=== PATIENT | male | born 1945 | race Caucasian/White ===

== ENCOUNTER 2020-09-24 12:02 | Emergency (ER) | payer MEDICARE ==
[~2020-09-24] VITALS: Ht 182.9 cm; Wt 117.9 kg
[2020-09-24] MEDS ORDERED: SODIUM CHLORIDE 0.9% 1000ML 1,000 ML IV STA (12:27)
[2020-09-24] MEDS ORDERED: ONDANSETRON HCL INJ 2MG/ML 2ML 2 MG/ML VIAL IV ONE (12:27)
[2020-09-24] MEDS ORDERED: HYDROMORPHONE 1MG/1ML INJ IV ONE (12:27)
--- NOTE | 2020-09-24 14:11 | Emergency Department Note ---
History of Present Illnes History of Present Illness Chief Complaint: Extremity Trauma/Pain History of Present Illness This is a 75 year old male PT WAS TO GET A SPINAL CORD STIMULATOR AND THE DOCTOR DID HIS EPIDURAL, BUT COULDN'T IMPLANT THE STIMULATOR D/T C-ARM BREAKING AND PT THEN STATED LEFT LEG PAIN, SO MD SENT PT TO ER TO R/O DVT. PT ALSO WANTING PAIN MEDICATION. I SPOKE WITH PAIN MD - HE SAYS PT ONLY NEEDS DOPPPLER SINCE PT HAS BEEN OFF ASA/PLAVIX 6 DAYS FOR THIS PROCEDURE - IF NEGATIVE HE WILL F/U PT Historian: Patient Arrival Mode: [facility] KNIFE OPERATOR: See EMS Report Telecommunications Equipment Installer Required: No Onset (how long ago): minute(s) Location: LEFT LEG Quality: PAIN Radiation: Reports non-radiation Severity: severe Onset quality: sudden Timing of current episode: constant Progression: unchanged Chronicity: new Context: Denies recent illness Relieving factors: none Exacerbating factors: none Associated symptoms: Reports denies other symptoms Past Medical/Family History Physician Review I have reviewed the patient's past medical and family history. Any updates have been documented here. Past Medical History Recent Fever: No Clinical Suspicion of Infectio: No New/Unexplained Change in Ment: No Past Medical History: Chronic Back Pain Social History Smoking Cessation: Unknown if ever smoked Counseling Performed: No Alcohol Use: None Any Illegal Drug Use: No Physically hurt or threatened: No Family History Family history of heart diseas: No Other Any Pre-Existing Lines (PICC,: No Review of Systems Review of Systems Constitutional: Reports no symptoms EENTM: Reports no symptoms Cardiovascular: Reports no symptoms Respiratory: Reports no symptoms Gastrointestinal: Reports no symptoms Genitourinary: Reports no symptoms Musculoskeletal: Reports as per HPI, Reports back pain Integumentary: Reports no symptoms Neurological: Reports no symptoms Psychological: Reports no symptoms Endocrine: Reports no symptoms Hematological/Lymphatic: Reports no symptoms Physical Exam Related Data Allergies: Coded Allergies: promethazine (Verified Allergy, Unknown, 09/24/20) Triage Vital Signs Vital Signs Date Time Temp Pulse Resp B/P (MAP) Pulse Ox O2 Delivery O2 Flow Rate FiO2 09/24/20 12:04 96.9 94 22 114/78 96 Room Air Vital signs reviewed: Yes Physical Exam CONSTITUTIONAL Constitutional: Present well-developed, Present well-nourished HENT HENT: Present normocephalic, Present atraumatic, Present oropharynx clear/moist, Present nose normal HENT L/R: Present left ext ear normal, Present right ext ear normal EYES Eyes: Reports PERRL, Reports conjunctivae normal NECK Neck: Present ROM normal PULMONARY Pulmonary: Present effort normal, Present breath sounds normal CARDIOVASCULAR Cardiovascular: Present regular rhythm, Present heart sounds normal, Present capillary refill normal, Present normal rate GASTROINTESTINAL Abdominal: Present soft, Present nontender, Present bowel sounds normal GENITOURINARY Genitourinary: Present exam deferred SKIN Skin: Present warm, Present dry MUSCULOSKELETAL Musculoskeletal: Present ROM normal, Present other (NEG SLR) NEUROLOGICAL Neurological: Present alert, Present oriented x 3, Present DTRs normal, Present no gross motor or sensory deficits; Absent cranial nerve deficit, Absent sensory deficit, Absent weakness PSYCHOLOGICAL Psychological: Present mood/affect normal, Present judgement normal Results Imaging Imaging results reviewed: Yes Impressions NEG DOPPLER FOR DVT Assessment & Plan Medical Decision Making MDM DOPPLER R/O DVT Reassessment Reassessment DC HOME, PT HAS PAIN MEDS PER PAIN MANAGEMENT MD, DR PHAM Assessment & Plan Final Impression: (1) Leg pain Depart Disposition: HOME, SELF-CARE Last Vital Signs Date Time Temp Pulse Resp B/P (MAP) Pulse Ox O2 Delivery O2 Flow Rate FiO2 09/24/20 12:04 96.9 94 22 114/78 96 Room Air Medications in the ED Hydromorphone HCl 2 mg ONCE ONCE IV Last administered on 09/24/20at 13:04; Admin Dose 2 MG; Start 09/24/20 at 12:27; Stop 09/24/20 at 12:30; Status DC Ondansetron HCl 4 mg ONCE ONCE IV Last administered on 09/24/20at 13:04; Admin Dose 4 MG; Start 09/24/20 at 12:27; Stop 09/24/20 at 12:30; Status DC Sodium Chloride 1,000 ml @ 0 mls/hr Q0M STAT IV Last administered on 09/24/20at 13:04; Admin Dose 1,000 MLS/HR; Start 09/24/20 at 12:27; Stop 09/24/20 at 12:29; Status DC RAND PALMA MD Sep 24, 2020 14:11
--- OUTSIDE RECORDS SUMMARY | 2020-09-24 14:22 | XMS REPORT | Continuity of Care Document ---
Author Author Raffi Yogesh [employer] Organization [employer] Address Unknown Phone Unavailable Care Team Providers Care Employee Counselor Name Role Phone [employer] Unavailable Un available Problems Problem Status Onset Date Classification Date Reported Comments Source PROSTATE TRANSURETHRAL PROCEDURE Active 03/01/2020 [facility] UNK Active 0 02/17/2020 [facility] JEROME Active 0 04/17/2017 [facility] R26.0 - ATAXIC GAIT Active 07/08/2016 [place] Allergic rhinitis (disorder) R esolved Problem [facility] Chronic atrial fibrillation (disorder) Resolved Problem 08/10/2020 [facility] Chronic obstructive lung disease (disorder) Active Problem 08/10/2020 [facility] Diabetes mellitus (disorder) A ctive Problem [facility] Morbid obesity (disorder) Acti ve Problem Medical [facility] Benign prostatic hypertroph with outflow obstruction (disorder) Active Prob nelly 08/10/2020 [facility] Coronary arteriosclerosis (disorder) Active Problem Medical [facility] Device in situ (finding) Active Problem 08/10/2020 Medical [facility] History of - coronary artery bypass lisa ting (context-dependent category) Active Prob nelly 08/10/2020 [facility] Stented coronary artery (finding) Active Problem [facility] Urinary catheter in situ (finding) Active Problem [facility] Impotence (disorder) Active Problem 08/10/2020 [facility] Retention of urine (disorder) Active Problem Medical Group OBSTRUCTIVE SLEEP APNEA (ADULT) (PEDIATR Active [facility] Medications Medication Details Route Status Patient Instructions Ordering Provider Order Date Source QUADMIX QUADMIX, 1 injection, intraCAVERNOSAL, Daily, PRN intercourse, Ouvvgivpyt23pl/mL, Phentolamine 4mg/mL, PGE1 40mcg/mL,Xsnfppcr732kmw/mL start 6units, # 5 mL, Refill(s) 0, Pharmacy: [facility], 172.72, cm, 08/07/20 15:53:00 CDT, Height, 97.756, kg... Active 08/07/2020 [facility] QUADMIX QUADMIX, 1 injection, intraCAVERNOSAL, Daily, PRN intercourse, Xhqwtqfnwa65vu/mL, Wncqcavvxonp0ro/mL, PGE1 40mcg/mL, Yqulvwst698wpj/mL, # 5 mL, Refill(s) 0, Pharmacy: [facility], 172.72, cm, 04/23/20 9:54:00 CDT, Height, 101.818, kg, 04/23/20 9:... Active 07/16/2020 [facility] Trimix Trimix, 6 units, intraC AVERNOSAL, Q24H, PRN sexual intercourse, Papaverine 30mg/mL, Phentolamine 1mg/mL, Prostaglandin E1 10mcg/mL. 5 mL vial, # 5 mL, Refill(s) 0, Pharmacy: [facility] Active 03/07/2020 [facility] Calcium Chloride 0.0014 MEQ/ML / Potassi um Chloride 0.004 MEQ/ML / Sodium Chloride 0.103 MEQ/ML / Sodium Lactate 0.028 MEQ/ML Injectable Solution 1,000 mL, Infuse Over: 1 hr, Route: IV, PRE OP, Dosing Weight 101.591 kg, Start date: 03/02/20 13:00:00 CDT, Duration: 1 doses or times, Bolus Inactive 03/02/2020 [facility] Calcium Chloride 0.0014 MEQ/ML / Potassi um Chloride 0.004 MEQ/ML / Sodium Chloride 0.103 MEQ/ML / Sodium Lactate 0.028 MEQ/ML Injectable Solution 1,000 mL, Rate: 75 ml/hr, Infuse over: 1 3.3 hr, Route: IV, Dosing Weight 101.591 kg, Total Volume: 1,000, Start date: 03/02/20 12:21:00 CDT, Duration: 30 day, Stop date: 04/01/20 12:20:00 CDT, 2.22, m2 Inactive 03/02/2020 [facility] lidocaine (ANES) Route: IV, Dr ug form: INJ, ONCE, Stop date: 03/02/20 12:17:00 CDT Inactive 03/02/2020 [facility] phenylephrine (ANES) Route: IV , Drug form: INJ, ONCE, Stop date: 03/02/20 12:17:00 CDT Inactive 03/02/2020 [facility] ondansetron (ANES) Route: IV, Drug form: INJ, ONCE, Stop date: 03/02/20 12:17:00 CDT Inactive 03/02/2020 [facility] fentaNYL (ANES) Route: IV, Yasir g form: INJ, ONCE, Stop date: 03/02/20 12:11:00 CDT Inactive 03/02/2020 [facility] propofol (ANES) Route: IV, Yasir g form: INJ, ONCE, Stop date: 03/02/20 12:11:00 CDT Inactive 03/02/2020 [facility] 200 ML Ciprofloxacin 2 MG/ML Injection 400 mg, Route: IVPB, PRE OP, Dosing Weight 102.955, kg, Start date: 03/02/20 12:00:00 CDT, Duration: 1 day, Stop date: 03/03/20 11:59:00 CDT, ABX Indication: Surgical Prophylaxis Inactive 03/02/2020 [facility] midazolam (ANES) Route: IV, Dr ug form: SOLN, ONCE, Stop date: 03/02/20 11:56:00 CDT Inactive 03/02/2020 [facility] acetaminophen (ANES) 10 mg Rou te: IV, Drug form: INJ, Start date: 03/02/20 11:46:00 CDT, Stop date: 03/02/20 12:46:00 CDT Inactive 03/02/2020 [facility] Tamsulosin hydrochloride 0.4 MG Oral Capsule [Flomax] 0.4 mg = 1 cap, PO, Daily, # 30 cap, 1 Refill(s), Pharmacy: [place] [id number] Active 03/02/2020 [facility] oxybutynin 5 mg oral tablet 5 mg = 1 tab, PO, TID, PRN Other-See Comments, # 30 tab, 0 Refill(s), Pharmacy: [place] [id number] Active 03/02/2020 [facility] Lactated Ringers Injection IV (ANES) 1000 mL Route: IV, Total Volume: 1,000, Start date: 03/02/20 11:26:00 CDT, Stop date: 03/02/20 12:26:00 CDT Inactive 03/02/2020 [facility] Trerebecca Ellipta inhalation powder = 1 inhalation, PO, Daily, PRN COPD, # 1 ea, 0 Refill(s) Active 03/02/2020 [facility] isosorbide dinitrate 30 mg oral tablet 30 mg = 1 tab, PO, Daily, Daily, 0 Refill(s) Active 02/13/2020 [facility] Tamsulosin hydrochloride 0.4 MG Oral Capsule [Flomax] 0.4 mg = 1 cap, PO, Daily, # 30 cap, 1 Refill(s), Pharmacy: [place] [id number] Active 12/01/2019 [facility] Ciprofloxacin 500 MG Oral Tablet [Cipro] 500 mg = 1 tab, PO, Q12H, X 5 day, # 10 tab, 0 Refill(s), Pharmacy: [place] [id number] Active 12/01/2019 [facility] Fosfomycin 33.3 MG/ML Oral Suspension [Monurol] = 1 Pack, PO, Every Other Day, # 2 ea, 0 Refill(s), Pharmacy: [place] [id number] Active 11/29/2019 [facility] Amikacin 500 mg, Route: IM, ON CE, Dosing Weight 108.778, kg, Start date: 11/29/19 12:26:00 PROTECTIVE SERVICES OFFICER, Stop date: 11/29/19 12:26:00 PROTECTIVE SERVICES OFFICER Inactive 11/29/2019 [facility] Ciprofloxacin 500 MG Oral Tablet [Cipro] 500 mg = 1 tab, PO, Q12H, Start 3 days before surgery, X 10 day, # 20 tab, 0 Refill(s), Pharmacy: [facility] Active 11/16/2019 [facility] ferrous sulfate 325 mg oral enteric coated tablet 325 mg = 1 tab, PO, Daily, # 30 tab, 0 Refill(s) Active 11/16/2019 [facility] Vitamin D3 5000 intl units oral tablet 5,000 IntlUnit = 1 tab, PO, Daily, 0 Refill(s) Active 08/17/2019 [facility] Aspirin 81 MG Enteric Coated Tablet 81 mg = 1 tab, PO, Daily, # 90 tab, 3 Refill(s) Active 08/17/2019 [facility] Co-Q10 200 mg oral tablet 200 mg = 1 tab, PO, Daily, 0 Refill(s) Active 08/17/2019 [facility] gabapentin 600 MG Oral Tablet 600 mg = 1 tab, PO, Daily, 0 Refill(s) Active 08/17/2019 [facility] allopurinol 300 mg oral tablet 300 mg = 1 tab, PO, Daily, # 90 tab, 0 Refill(s) Active 08/17/2019 [facility] ranitidine 300 mg oral tablet 300 mg = 1 tab, PO, Daily, # 90 tab, 0 Refill(s) Active 08/17/2019 [facility] atorvastatin 40 MG Oral Tablet [Lipitor] 40 mg = 1 tab, PO, Bedtime, # 90 tab, 0 Refill(s) Active 08/17/2019 [facility] isosorbide mononitrate 60 mg oral tablet , extended release 60 mg = 1 tab, PO, QAM, # 90 tab, 0 Refill(s) Active 08/17/2019 [facility] montelukast 10 mg oral tablet 10 mg = 1 tab, PO, Bedtime, # 90 tab, 0 Refill(s) Active 08/17/2019 [facility] rOPINIRole 2 mg oral tablet 2 mg = 1 tab, PO, Bedtime, # 90 tab, 1 Refill(s) Active 08/17/2019 [facility] losartan 25 mg oral tablet 25 mg = 1 tab, PO, Daily, # 90 tab, 0 Refill(s) Active 08/17/2019 [facility] 24 HR Metformin hydrochloride 500 MG / s itagliptin 50 MG Extended Release Tablet [Janumet 50/500] 2 tab, PO, QPM, 0 Refill(s) Active 08/17/2019 [facility] magnesium glycinate 200 mg oral tablet 400 mg = 2 tab, PO, BID, 0 Refill(s) Active 08/17/2019 [facility] Symbicort 80/4.5 inhalation aerosol with adapter 2 puff, INHALATION, BID, # 6.9 gm, 0 Refill(s) Active 08/17/2019 [facility] benzonatate PO, TID, 0 Refill( s) Active 08/17/2019 [facility] Acetaminophen 325 MG / Hydrocodone Eber trate 10 MG Oral Tablet 1 tab, PO, Q8H, PRN Pain, # 30 tab, 0 Refill(s) Active 08/17/2019 [facility] Furosemide 40 MG Oral Tablet 4 0 mg = 1 tab, PO, Daily, # 90 tab, 0 Refill(s) Active 08/17/2019 [facility] Budesonide 0.25 MG/ML Inhalant Solution [Pulmicort] 0.5 mg = 2 ml, NEB, BID, # 120 ea, 0 Refill(s) Active 08/17/2019 [facility] formoterol fumarate 0.01 MG/ML Inhalant Solution [Perforomist] 20 microgram = 2 mL, INHALATION, BID, 0 Refill(s) Active 08/17/2019 [facility] Revefenacin 0.0583 MG/ML Inhalation Solution [Yupelri] INHALATION, Daily, 0 Refill(s) Active 08/17/2019 [facility] Zolpidem tartrate 10 MG Oral Tablet [Ambien] 10 mg = 1 tab, PO, Bedtime, # 14 tab, 0 Refill(s) Active 08/17/2019 [facility] carvedilol 12.5 mg oral tablet 12.5 mg = 1 tab, PO, BID, # 180 tab, 0 Refill(s) Active 08/17/2019 [facility] clopidogrel 75 mg oral tablet 75 mg = 1 tab, PO, Daily, # 90 tab, 0 Refill(s) Active 08/17/2019 [facility] pantoprazole 40 MG Enteric Coated Tablet [Protonix] 40 mg = 1 tab, PO, Daily, # 90 tab, 0 Refill(s) Active 08/17/2019 [facility] Trimix Trimix, 6 units, intraC AVERNOSAL, Q24H, PRN sexual intercourse, Papaverine 30mg/mL, Phentolamine 1mg/mL, Prostaglandin E1 10mcg/mL. 5 mL vial, # 5 mL, Refill(s) 0, Pharmacy: [facility] Active 08/10/2019 [facility] Allergies, Adverse Reactions, Alerts Substance Category Reaction Severity Reaction type Status Date Reported Comments Source Phenergan Assertion Drug allergy Active [facility] Immunizations No Data Provided for This Section Results Order Name Results Value Reference Range Date Interpretation Comments Source URINE AND STOOL POC UA Color Yellow *NA* (11/16/19 9:08 AM) Yellow 11/16/2019 [facility] URINE AND STOOL POC UA Turbidity Clear *NA* (11/16/19 9:08 AM) Clear 11/16/2019 [facility] URINE AND STOOL POC UA SG 1.020 <=1.030 11/16/2019 [facility] URINE AND STOOL POC UA pH 5.0 5.0 - 8.0 11/16/2019 [facility] URINE AND STOOL POC UA Prot Negative mg/dL Negative mg/dL 11/16/2019 [facility] URINE AND STOOL POC UA Glu Negative mg/dL Negative mg/dL 11/16/2019 [facility] URINE AND STOOL POC UA Ket Trace mg/dL Negative mg/dL 11/16/2019 [facility] URINE AND STOOL POC UA Bili Small *ABN* (11/16/19 9:08 AM) Negative 11/16/2019 [facility] URINE AND STOOL POC UA Bld Large *ABN* (11/16/19 9:08 AM) Negative 11/16/2019 [facility] URINE AND STOOL POC UA Uro 0.2 0.1 - 1.0 11/16/2019 [facility] URINE AND STOOL POC UA Nit Negative *NA* (11/16/19 9:08 AM) Negative 11/16/2019 [facility] URINE AND STOOL POC UA LeukEst Trace *ABN* (11/16/19 9:08 AM) Negative 11/16/2019 [facility] Pathology Reports No Data Provided for This Section Diagnostic Reports Report Value Date Source Brain wo contrast MRI Study: B rain wo contrast MRI 05/07/2017 9:50 AM CDT Ordering Physician: Steven Colmenares MD Clinical Indication: - I63.9 Cerebral infarction, unspecified; 71-year-old with complaint of dizziness, lightheadedness and unstable gait 4 months. Comparison: None TECHNIQUE: Multiplanar, multiecho magnetic resonance imaging of the brain is performed without contrast on a 1.5 Diamond magnet. 2 tiny foci of increased FLAIR signal ar e present in the frontal white matter, one on each side. These are nonspecific and are probably not clinically significant. No additional foci of abnormal signal are identified within the cerebral or cerebellar hemispheres. A CSF signal intensity extra-axial fluid accumulation is present along the posterior margin of the cerebellum, at and to the right of midline, measuring 4.5 cm TR by 2.9 cm AP by 3.1 cm CC. This could represent an arachnoid cyst. No intra-axial mass lesion is visualized. No subacute or chronic blood products are seen. There is no evidence for acute ischemia on diffusion-weighted images. Ventricles, cerebral sulci and basal cisterns are within normal limits for age. Normal flow voids are present in the arterial vessels at the skull base. Flow voids in the dural venous sinuses are normal. The pituitary, internal auditory canals and visualized cranial nerves at the skull base are unremarkable. Paranasal sinuses are clear. Mastoid air cells are clear. Orbital structures are grossly unremarkable. IMPRESSION: A CSF signal intensity is present in the right posterior fossa, along the posterior margin of the right cerebellum, measuring approximately 4.5 x 3 x 3 cm, likely representing an arachnoid cyst. Otherwise unremarkable MRI of the brain without contrast. SL: [id number] 05/07/2017 [facility] [place] Brain CTA CTA BRAIN WITH CONTR AST INDICATION: Ataxia, gait abnormality COMPARISON: None TECHNIQUE: CTA of the brain was performed after administration of intravenous contrast. Coronal, sagittal, and 3-D reformatted images were utilized. In addition, noncontrast CT of the brain was performed. DISCUSSION: The bilateral internal carotid arteries are patent. The bilateral anterior and middle cerebral arteries are patent. The vertebrobasilar arteries are patent. The bilateral posterior cerebral arteries are not well seen, right worse than left. There appears to be moderate to severe multifocal stenosis of the P1 and P2 segments on the right side; and moderate multifocal stenosis of the proximal segments on the left. Normal variant anatomy: Hypoplastic anterior and left posterior communicating arteries are visible. The left vertebral artery is dominant. The right vertebral artery is severely hypoplastic and appears to end as the right PICA. No aneurysms are identified. CT BRAIN: There are mild age-appropriate generalized involutional changes of brain. There is a midline arachnoid cyst of the posterior fossa. The right cerebellum may be hypoplastic, in comparison to the left side. There is no evidence of acute vascular insults, space occupying lesions, hemorrhage, hydrocephalus, or midline shift. The calvarium is intact. IMPRESSION: 1. Poor visualization of the bilateral p osterior cerebral arteries, right worse than left, may be secondary to flow limiting stenosis of the proximal segments of the bilateral sales record clerk. There is otherwise no evidence of complete occlusion or severe flow limiting stenosis elsewhere. 2. No acute intracranial abnormalities a re visualized. An arachnoid cyst of the posterior fossa is noted, associated with possible hypoplasia of the right cerebellum. SL:[id number] 07/17/2016 [facility] [place] Consultation Notes No Data Provided for This Section Discharge Summaries No Data Provided for This Section History and Physicals No Data Provided for This Section Vital Signs Vital Sign Value Date Comments Source Height 172.72 cm 08/07/2020 [facility] Weight 97.756 08/07/2020 [facility] BMI Calculated 32.77 08/07/2020 [facility] Height 172.72 cm 04/23/2020 [facility] Weight 101.818 04/23/2020 [facility] BMI Calculated 34.13 04/23/2020 [facility] Respitory Rate 16 03/02/2020 [facility] Systolic (mm Hg) 114 03/02/2020 [facility] Diastolic (mm Hg) 74 03/02/2020 [facility] Respitory Rate 17 03/02/2020 [facility] Systolic (mm Hg) 97 03/02/2020 [facility] Diastolic (mm Hg) 64 03/02/2020 [facility] Respitory Rate 16 03/02/2020 [facility] Systolic (mm Hg) 105 03/02/2020 [facility] Diastolic (mm Hg) 78 03/02/2020 [facility] Height 170.18 cm 03/02/2020 [facility] Weight 101.591 03/02/2020 [facility] BMI Calculated 35.08 03/02/2020 [facility] Height 172.72 cm 11/29/2019 [facility] Weight 108.409 11/29/2019 [facility] BMI Calculated 36.34 11/29/2019 [facility] Height 172.72 cm 11/16/2019 [facility] Weight 108.778 11/16/2019 [facility] BMI Calculated 36.46 11/16/2019 [facility] Height 172.72 cm 11/02/2019 [facility] Weight 108.636 11/02/2019 [facility] BMI Calculated 36.42 11/02/2019 [facility] Height 172.72 cm 09/14/2019 [facility] Weight 110.682 09/14/2019 [facility] BMI Calculated 37.1 09/14/2019 [facility] Height 172.72 cm 08/10/2019 [facility] Weight 112.5 08/10/2019 [facility] BMI Calculated 37.71 08/10/2019 [facility] Encounters Location Location Details Encounter Type Encounter Number Reason For Visit Attending Provider ADM Date DC Date Status Source [facility] [place] [facility] [id number] Steven Colmenares 07/17/2016 07/18/2016 [facility] [place] [facility] [place] [facility] [id number] Steven Colmenares 05/07/2017 05/08/2017 [facility] [place] Out[facility] [id number] Tomás Sherman 08/10/2019 Active [facility] Outpatient [id number] Tomás Sherman 08/10/2019 08/11/2019 [facility] Outpatient [id number] Tomás Sherman 09/14/2019 Active [facility] Outpatient [id number] Tomás Sherman 09/14/2019 09/15/2019 [facility] Outpatient [id number] Tomás Sherman 11/02/2019 Active [facility] Outpatient [id number] Tomás Sherman 11/02/2019 11/03/2019 [facility] Outpatient [id number] MED_ASST VISIT 11/03/2019 Active [facility] Outpatient [id number] MED_ASST VISIT 11/03/2019 11/04/2019 Medical Group [facility] Phone Message [id number] 11/04/1911/06/2019 [facility] Outpatient [id number] - URODYNAMICS, 11/15/2019 Active [facility] Outpatient [id number] Tomás Sherman 11/15/2019 11/16/2019 [facility] Outpatient [id number] Tomás Sherman 11/16/[address] [facility] Outpatient [id number] Tomás Sherman 11/16/2019 Active [facility] [id number] Tomás Sherman 11/16/2019 11/16/2019 Medical Group [facility] Outpatient [id number] Tomás Sherman 11/16/2019 11/17/2019 [facility] Outpatient [id number] MED_ASST VISIT 11/22/2019 Active Raffi Laraann [facility] Outpatient [id number] Tomás Sherman 11/22/2019 11/23/2019 [facility] Outpatient [id number] MED_ASST VISIT 11/29/2019 Active [facility] Outpatient [id number] MED_ASST VISIT 11/29/2019 Active [facility] Yogesh [facility] [id number] MED_ASST VISIT 11/29/2019 11/29/2019 [facility] Outpatient [id number] Tomás Sherman 11/29/2019 Active [facility] Tilden [facility] [id number] MED_ASST VISIT 11/29/2019 11/30/2019 [facility] [id number] Tomás Sherman 11/29/2019 11/30/2019 [facility] Outpatient [id number] NURSE VISIT 12/01/2019 Active Raffi oYgesh [facility] Outpatient [id number] NURSE VISIT 12/01/2019 12/02/2019 [facility] Message [id number] 12/05/1912/07/2019 [facility] Phone Message [id number] 12/07/1912/09/2019 [facility] Outpatient [id number] Tomás Sherman 12/21/2019 Active [facility] Ambulatory Pre-Reg [id number] Tomás Sherman 12/21/2019 12/21/2019 [facility] Outpatient [id number] NURSE VISIT 12/29/2019 Active [facility] Phone Message [id number] 12/29/1912/31/2019 [facility] Outpatient [id number] NURSE VISIT 12/29/2019 12/30/2019 [facility] Outpatient [id number] MED[facility]ASST VISIT 01/10/2020 [facility] Outpatient [id number] Tomás Sherman 01/10/2020 01/11/2020 [facility] Outpatient [id number] NURSE VISIT 01/11/2020 Active [facility] Outpatient [id number] Tomás Sherman 01/11/2020 01/12/2020 [facility] Outpatient [id number] MED_ASST VISIT 01/20/2020 Active [facility] Outpatient [id number] Tomás Sherman 01/20/2020 01/21/2020 [facility] Outpatient [id number] MED_ASST VISIT 01/23/2020 Active [facility] Ambulatory Pre-Reg [id number] MED_ASST VISIT 01/23/2020 01/23/2020 [facility] Outpatient [id number] MED_ASST VISIT 02/08/2020 Active [facility] Outpatient [id number] MED_ASST VISIT 02/08/2020 02/09/2020 [facility] Outpatient [id number] Tomás Sherman 02/13/2020 [facility] [id number] Tomás Sherman 02/13/[address] [facility] Outpatient [id number] Tomás Sherman 02/13/2020 Active [facility] Ambulatory Pre-Reg [id number] Tomás Sherman 02/13/2020 02/13/2020 [facility] Phone Message [id number] 02/13/2002/15/2020 [facility] [id number] Tomás Sherman 02/13/2020 02/13/2020 [facility] Outpatient [id number] NURSE VISIT 02/24/2020 Active [facility] Outpatient [id number] NURSE VISIT 02/24/2020 02/25/2020 [facility] Day Surgery [id number] Tomás Sherman 03/02/2020 03/02/2020 [facility] Outpatient [id number] MED_ASST VISIT 03/05/2020 Active [facility] Outpatient [id number] Tomás Sherman 03/05/2020 03/06/2020 [facility] Outpatient [id number] MED_ASST VISIT 03/09/2020 Active [facility] [place] [facility] Hospital Ambulatory Pre-Reg [id number] MED_ASST VISIT 03/09/2020 03/09/2020 Medical Group Outpatient [id number] Tomás Sherman 04/23/2020 Active [facility] Outpatient [id number] Tomás Sherman 04/23/2020 04/24/2020 Medical [facility] Outpatient [id number] Tomás Sherman 07/16/[address] [facility] Outpatient [id number] Tomás Sherman 07/16/2020 Active [facility] Ambulatory Pre-Reg [id number] Tomás Sherman 07/16/2020 07/16/[address] [facility] Ambulatory Pre-Reg [id number] Tomás Sherman 07/20/2020 07/20/2020 Medical Group Outpatient [id number] Tomás Sherman 08/07/2020 Active [facility] Outpatient [id number] Tomás Sherman 08/07/2020 08/08/2020 Medical Group Outpatient [id number] Tomás Sherman 11/19/[address] [facility] Procedures Procedure Code Date Perfomer Comments Source Insertion of temporary indwelling bladde r catheter; simple (eg, [place]) 82493 02/08/2020 [facility] Electromyography studies (EMG) of anal o r urethral sphincter, other than needle, any technique 79830 11/16/2019 [facility] Voiding pressure studies, intra-abdomina l (ie, rectal, gastric, intraperitoneal) (List separately in addition to code for primary procedure) 88722 11/16/2019 [facility] Complex uroflowmetry (eg, calibrated vargas ctronic equipment) 35775 11/16/2019 [facility] Cystourethroscopy (separate procedure) 91436 11/16/2019 [facility] Complex cystometrogram (ie, calibrated e lectronic equipment); with voiding pressure studies (ie, bladder voiding pressure), any technique 18057 11/16/2019 [facility] Measurement of post-voiding residual uri ne and/or bladder capacity by ultrasound, non-imaging 94148 11/03/2019 [facility] Injection of corpora cavernosa with phar macologic agent(s) (eg, papaverine, phentolamine) 38361 09/14/2019 [facility] Carpal tunnel release [id number] 05/26/2018 [facility] Nerve block with injection of lumbar spi ne using fluoroscopic guidance [id number] 12/24/2017 [facility] Cholecystectomy [id number] 10/26/2017 [facility] Decompression of spinal cord 1 [id number] 11/26/2016 [facility] Rotator cuff repair [id number] 04/25/2014 [facility] Repair of dental implant [id number] 01/24/2013 [facility] Lumbar discectomy [id number] 06/26/1993 [facility] Spinal laminectomy [id number] 06/26/1993 [facility] Rhinoplasty [id number] 03/26/1993 [facility] Bilateral inguinal hernia repair [id number] 01/24/1983 [facility] MCL - Repair of medial collateral ligament [id number] 10/26/1969 [facility] CABG x 3 - Coronary artery bypass grafts x 3 [id number] [facility] Insertion of coronary artery stent [id number] [facility] Operation [id number] [facility] Assessment and Plan No Data Provided for This Section Plan of Care No Data Provided for This Section Social History Social History Date Source Social History TypeResponse Alcohol Current, Frequency: 1-2 times per week. Substance Abuse Previous Treatment: None. Smoking Status Former smoker; Type: Cigarettes; Exposure to Tobacco Smoke None; Cigarette Smoking Last 365 Days No; Reg Smoking Cessation Counseling No1 entered on: 08/07/20 1Quit smoking 199203/01/2020 [facility] Social History TypeResponse Alcohol Current, Frequency: 1-2 times per week. Substance Abuse Previous Treatment: None. Smoking Status Former smoker; Type: Cigarettes; Exposure to Tobacco Smoke None; Cigarette Smoking Last 365 Days No; Reg Smoking Cessation Counseling No1 entered on: 03/02/20 1Quit smoking 199203/01/2020 DAISY Randhawa No data available for this section 05/08/2017 DAISY ALVARADO [place] Family History No Data Provided for This Section Advance Directives No Data Provided for This Section Functional Status No Data Provided for This Section
--- OUTSIDE RECORDS SUMMARY | 2020-09-24 14:22 | XMS REPORT | Clinical Summary ---
Author Author [employer] [facility] [employer] Address Unknown Phone Unavailable Care Team Providers Care Vice President Lending Name Role Phone Nora Mohr MD PCP Allergies Comments Active Allergy Reactions Severity Noted Date Codeine Rash Low 01/25/2018 Leg cramps Lisinopril Other (See Low 06/20/2013 Comments) Promethazine Altered 01/25/2018 Mental Status Medications End Date Status Medication Sig Dispensed Refills Start Date Active allopurinol (ZYLOPRIM) Take 300 mg 0 // 01 300 MG tablet by mouth 8 nightly. Active atorvastatin (LIPITOR) 40 Take 40 mg by 0 03/0 7/201 MG tablet mouth every 8 evening. Active furosemide (LASIX) 40 mg Take 80 mg by 0 12/03 tablet mouth every 8 morning. PT takes on the morning 0530 and early afternoon (1330) Active losartan (COZAAR) 25 MG Take 25 mg by 0 tablet mouth every 8 evening. Active montelukast (SINGULAIR) Take 10 mg by 0 10 mg tablet mouth 8 nightly. Active rOPINIRole (REQUIP) 1 MG Take 4 mg by 0 12/27 tablet mouth 8 nightly. Active clopidogrel (PLAVIX) 75 Take 75 mg by 0 mg tablet mouth every morning. Active carvedilol (COREG) 12.5 Take 12.5 mg 0 MG tablet by mouth 2 (two) times a day with meals. Active coenzyme Q10 200 mg Take 200 mg 0 capsule by mouth every morning. Active aspirin (ECOTRIN) 81 MG Take 81 mg by 0 enteric coated tablet mouth every morning. Active docusate sodium (COLACE) Take 200 mg 0 100 MG capsule by mouth as needed. Active cholecalciferol, vitamin Take 1 tablet 0 D3, (VITAMIN D3) 5,000 by mouth unit tablet daily. Active ferrous sulfate 325 (65 Take 325 mg 0 FE) MG tablet by mouth every evening. Active magnesium oxide 250 mg Take 250 mg 0 tablet by mouth daily with lunch. Active famotidine (PEPCID) 40 MG Take 40 mg by 0 tablet mouth nightly. Active SITagliptin-metformin Take 1 tablet 0 (JANUMET) 50-500 mg per by mouth tablet nightly. Active pantoprazole (PROTONIX) Take 20 mg by 0 20 MG EC tablet mouth every morning. Active mirabegron (MYRBETRIQ Take 50 mg by 0 ORAL) mouth every morning. 12/02/2019 Discontinued ranitidine (ZANTAC) 300 Take 300 mg 0 MG tablet by mouth 8 nightly. 12/02/2019 Discontinued zolpidem (AMBIEN) 10 mg Take 10 mg by 0 tablet mouth 8 nightly. 12/07/2019 Discontinued PREDNISONE ORAL Take by mouth 0 every morning. Active Problems Problem Noted Date Chest pain 01/25/2018 Encounters Care Team Description Date Type Specialty Joao Garnica MD CV LEFT HEART CATH LV GRAM WITH CORS [93 458 (CPT)] 12/07/2019 Surgery Procedural Cardiolo gy Joao Garnica MD Preoperative testing (Primary Dx) 12/07/2019 Hospital Procedural Cardiolo gy Encounter Joao Garnica MD 12/05/2019 Hospital Radiology Encounter after 09/24/2019 Surgical History Surgery Date Site/Laterality Comments CORONARY ANGIOPLASTY WITH 3 STENTS STENT PLACEMENT CARDIAC ELECTROPHYSIOLOGY 2 ABLATIONS FOR AFIB MAPPING AND ABLATION CORONARY ARTERY BYPASS x3 GRAFT ROTATOR CUFF REPAIR Left and Right Rotator cuff repair in 2013. HERNIA REPAIR VASECTOMY LAMINECTOMY RHINOPLASTY EXCISION, PTERYGIUM, WITH Right eye POSSIBLE CONJUNCTIVAL GRAFT CHOLECYSTECTOMY CARPAL TUNNEL RELEASE CORONARY ARTERY BYPASS 10/26/1996 - GRAFT 10/25/1997 CARDIAC CATHETERIZATION 01/26/2018 Femoral stents Medical devices from this surgery are i n the Implants section. CARDIAC CATHETERIZATION 12/07/2019 N/A Proced ure: CV LEFT HEART CATH LV GRAM WITH CORS; Surgeon: Joao Garnica MD; Loca tion: [facility]; Service: Cardiovascular; Laterality: N/A; Medical devices from this surgery are i n the Implants section. Medical History Medical History Date Comments Hypertension Coronary artery disease Hx of fusion of cervical spine ACDF- anterior cervi anila disc fusion with titanium plate Asthma CHF (congestive heart failure) (HCC) Myocardial infarction (HCC) states he does not derick mber when. Bronchitis Type 2 diabetes mellitus (HCC) Hypercholesteremia History of recent hospitalization 10/2019 " di fficulty voiding" Chronic kidney disease " has ffoley cath." Family History Medical History Relation Name Comments Cancer Brother Cancer Sister Relation Name Status Comments Brother bladder Father Mother Sister Alive breast Social History Date Tobacco Use Types Packs/Day Years Used Quit: 1992 Former Smoker Cigarettes 30 Smokeless Tobacco: Never Used Comments: states 1pk/week Drinks/Week oz/Week Comments Alcohol Use Occassionally Yes Sex Assigned at Date Recorded Not on file Last Filed Vital Signs Reading Time Taken Comments Vital Sign 140/63 12/07/2019 1:50 PM [facility] Blood Pressure 64 12/07/2019 1:50 PM [facility] Pulse 36.4 C (97.6 F) 12/07/2019 9:50 AM [facility] Temperature 16 12/07/2019 1:50 PM [facility] Respiratory Rate 98% 12/07/2019 1:50 PM [facility] Oxygen Saturation - - Inhaled Oxygen Concentration 106 kg (234 lb 11.2 oz) 12/07/2019 7:33 AM [facility] Weight 170.2 cm (5' 7") 12/07/2019 7:33 AM [facility] Height 36.76 12/07/2019 7:33 AM [facility] Body Mass Index Plan of Treatment Health Maintenance Due Date Last Done Comments DIABETES: RETINAL EYE 1954 EXAM DIABETIC FOOT EXAM 1954 URINE MICROALBUMIN 1954 COLONOSCOPY SCREENING 1994 SHINGLES VACCINES (#1) 1994 65+ PNEUMOCOCCAL VACCINE 2009 (1 of 1 - PPSV23) INFLUENZA VACCINE 05/26/2020 Implants Device Identifier Shelf Expiration Date Model / Serial / L ot Implanted Type Area Manufactur er 07/25/2019 [id number] / / Device Vasclr Clsr Baln Cath 10ml Cardiovasc N/A: N/A CARDINAL Lkng Syr 6fr 7fr [employer] - [facility] [id number] Implants Implanted: Qty: 1 on 01/26/2018 by Joao Garnica MD at [facility] 10/25/2021 [id number] / / Device Vasclr Clsr Baln Cath 10ml Cardiovasc Femoral: N/A CARDINAL Lkng Syr 6fr 7fr [facility] [id number] Implants Implanted: Qty: 1 on 12/07/2019 by Joao Garnica MD at [facility] Procedures Comments Procedure Name Priority Date/Time Associated Diag nosis CV LEFT HEART CATH LV Routine 12/07/2019 GRAM WITH CORS 9:44 AM [facility] POC GLUCOSE Routine 12/07/2019 8:15 AM [facility]SE [facility] XR CHEST 2 VW Routine 12/05/2019 Preoperative te sting 11:03 AM [facility]SE [facility] ECG 12-LEAD Routine 12/05/2019 Preoperative te sting 10:38 AM [facility]SE [facility]ER PARTIAL THROMBOPLASTIN Routine 12/05/2019 TIME (PTT) 10:08 AM [facility]SE [facility] MANUAL DIFFERENTIAL Routine 12/05/2019 10:08 AM [facility] ESTIMATED GFR Routine 12/05/2019 10:08 AM [facility]SE [facility]ER CBC WITH PLATELET AND Routine 12/05/2019 Preopera tive testing DIFFERENTIAL 10:08 AM [facility] BASIC METABOLIC PANEL Routine 12/05/2019 Preopera tive testing 10:08 AM [facility]ER PROTHROMBIN TIME WITH INR Routine 12/05/2019 Preo perative testing 10:08 AM [facility]SE [facility]ER TYPE AND SCREEN Routine 12/05/2019 Preoperative t esting 10:08 AM HOSE [facility]KER after 09/24/2019 Results * slab miller operator procedure (12/07/2019 9:44 AM HOSE MAKER) Specimen Narrative Performed At [facility] Mor[facility] 1945 [id number] 12/07/19 Indications: Abnormal stress test Procedures: Coronary angiogram LHC with LVgram SVG angiogram QUINTANILLA angiogram RCFA angiogram Closure: Mynx Access site: Right femoral artery Procedure details: Risks and benefits were discussed with the patient, informed consent was obtained. Patient was brought to the laboratory chief in a fasting state and prepped in a sterile manner. Patient was sedated wit h fentanyl and versed. The site was then infiltrated with 1% lidocaine. R ight femoral artery was then accessed. A 6 Fr sheath was inserted over the wir e into the right common femoral artery. A 6 Fr JL4 and 3DRC catheters were used to performed the coronary angiogram. Multiple projections were done. The catheter was then removed over the wire. A pigtail catheter was then position in the LV. LHC was performed as welll as LVgram. Pull ba ck showed no gradient across the aortic valve. The catheter was then r emoved over the wire. Right common femoral artery was then performed, whic h showed no signficant calcification or stenosis. Sheath was then removed and hemostasis was achieved with Mynx closure device. Patient tolerate the procedur e well. Findings: Right dominant Overall Diffuse disease Left main: Patent; 50% distally. Subd ivided into LAD and left circumflex LAD: Long vessel with 2 diagonals. Re aching all the way to apex and wrapped around the distal inferior wall . 100% just after the 1st septal Left circumflex: with 2 OM. RCA: is the dominant vessel giving rise to PDA and PLB. Proximal long stent has about 30% ISR. A branch of PLB has 100% with bridging collaterals QUINTANILLA to LAD is patent SVG to OM1 is patent LV gram: estimated EF 45 Wall motion: akinesis of the distal inf erior Mitral regurgitation: None LVEDP: 12 mmHg Ao Pressure: 128/72 mmHg Complication: There is no immediate complication EBL: 5 cc Impression: Severe small vessel disease Patent grafts Plan: Medical therapy Total contrast used: 95 ml Flouro-time: 5.1 minutes Air Kerma: 987 mGy 12/07/19 Joao Garnica MD Performing Organization Address City/State/ZIP Code P riley Number [facility] [address] [place] [address], * POC glucose (12/07/2019 8:15 AM HOSE MAKER) POC glucose 159 (H) 65 - 99 mg/dL [place]OY Comment: [employer] Name: [facility] Device ID: [id number] Specimen Performing Organization Address City/State/ZIP Code [place] [address] [address] [place], [place] [address] PATHOLOGY AND GENOMIC MEDICINE [place] [address] [place] [address] [facility] * XR Chest 2 Vw (12/05/2019 11:03 AM HOSE MAKER) Specimen Narrative Performed At TWO VIEW CHEST, 12/05/2019 RADIANT Clinical history: Preoperative testin g Technique: PA and lateral views chest. Comparison: 11/17/2018 DISCUSSION: The lungs are clear and symmetrically i nflated. No pleural effusions. Cardiomegaly. Postoperative sequela of CABG. Fractured sternotomy wires are unchanged. Pulmonary vasculature is nor mal. The skeleton is grossly intact. Cervical fusion hardware. IMPRESSION: No acute abnormality. Procedure Note Interface, Radiology Results Incoming - 12/05/2019 12:24 PM HOSE [facility]ER TWO VIEW CHEST, 12/05/2019 Clinical history: Preoperative testing Technique: PA and lateral views chest. Comparison: 11/17/2018 DISCUSSION: The lungs are clear and symmetrically inflated. No pleural effusions. Cardiomegaly. Postoperative sequela of CABG. Fractured sternotomy wires are unchanged. Pulmonary vasculature is normal. The skeleton is grossly intact. Cervical fusion hardware. IMPRESSION: No acute abnormality. Performing Organization Address [facility] Code P riley Number [facility] [address] [place] [address] * ECG 12 lead (12/05/2019 10:38 AM HOSE MAKER) Ventricular 80 [facility] rate Atrial rate 80 [facility] TX interval 164 [facility] QRSD interval 100 [facility] QT interval 378 [facility] QTC interval 435 [facility] P axis 1 32 [facility] QRS axis 1 85 [facility] T wave axis 22 [facility] EKG impression Sinus rhythm with premature [facility] atrial complexes-Otherwise normal ECG-In automated comparison with ECG of 17-NOV-2018 10:15,-Borderline criteria for Anterior infarct are no longer present- Specimen Narrative Performed At This result has an attachment that is n ot available. Performing Organization Address City/[facility]/ZIP Code P riley Number [facility] MUSE [address] [place] [address] * Estimated GFR (12/05/2019 10:08 AM HOSE MAKER) [facility] Estimated GFR 59 (A) mL/min/1.73 m2 [place] Comment: CHURCH CLEAR [facility] Interpretation G1 >=90 Normal or high G2 60-89 Mildly decreased G3a 45-59 Mildly to moderately decreased G3b 30-44 Moderately to severely decreased G4 15-29 Severely decreased G5 <15 Kidney failure The eGFR was calculated using the Chronic Kidney Disease Epidemiology Collaboration (CKD-EPI) equation. Interpretation is based on recommendations of the National Kidney Foundation-Kidney Disease Outcomes Quality Initiative (NKF-KDOQI) published in 2014. Specimen Plasma specimen Performing Organization Address [facility] P riley Number [address] [place] [address] 58 PATHOLOGY AND GENOMIC MEDICINE [address] * Manual differential (12/05/2019 10:08 AM HOSE MAKER) [facility] Manual PERFORMED [place] differential [facility] Neutrophils 79.0 (H) 39.0 - 69.0 % [facility] Lymphocytes 14.0 (L) 25.0 - 45.0 % [facility] Monocytes 6.0 0.0 - 10.0 % [facility] Eosinophils 0.0 0.0 - 5.0 % [facility] Basophils 0.0 0.0 - 1.0 % [facility] Metamyelocytes 0 % [facility] Promyelocytes 0 % [facility] Reactive 1.0 [place] lymphocytes [facility] Platelet slide Annette adequate [place] review [facility] Specimen Performing Organization Address [facility] P riley Number [facility] DEPARTMENT OF [address] [place] [address] [place] [address] 58 PATHOLOGY AND GENOMIC MEDICINE [address] * Partial thromboplastin time, activated (12/05/2019 10:08 AM HOSE MAKER) [facility] PTT 25.1 23.0 - 36.0 sec [place] Comment: [facility] PTT therapeutic range for [facility] unfractionated heparin is 61.0-112.0 seconds which corresponds to Anti-Xa 0.3-0.7 U/ml. Specimen Blood Performing Organization Address [facility] P riley Number [facility] [place] [address] [address] [place], [place] [address] PATHOLOGY AND GENOMIC MEDICINE [facility] [address] * Prothrombin time with INR (12/05/2019 10:08 AM HOSE MAKER) Pathologist [facility] Prothrombin 13.4 11.5 - 14.5 sec [place] time [facility] INR 1.0 [place] Comment: [facility] International Normalized [facility] Ratio (INR) is a therapeutic monitoring tool for patients who are stable on oral anticoagulant therapy. An INR of 2.0-3.0 is suggested for deep vein thrombosis/pulmonary embolism. Specimen Blood Performing Organization Address City/[facility] Code P riley Number [address] [place] [address] 58 PATHOLOGY AND GENOMIC MEDICINE [address] * CBC with platelet and differential (12/05/2019 10:08 AM HOSE MAKER) Pathologist [facility] WBC 9.86 4.50 - 11.00 k/uL [facility] RBC 4.07 (L) 4.40 - 6.00 m/uL [facility] HGB 12.5 (L) 14.0 - 18.0 g/dL [facility] HCT 39.4 (L) 41.0 - 51.0 % [facility] MCV 96.8 82.0 - 100.0 fL [facility] MCH 30.7 27.0 - 34.0 pg [facility] MCHC 31.7 31.0 - 37.0 g/dL [facility] RDW - SD 50.2 37.0 - 55.0 fL [facility] MPV 9.6 8.8 - 13.2 fL [facility] Platelet count 319 150 - 400 k/uL [facility] Nucleated RBC 0.20 /100 WBC [facility] Neutrophils 79.0 (H) 39.0 - 69.0 % [facility] Lymphocytes 14.0 (L) 25.0 - 45.0 % [facility] Monocytes 6.0 0.0 - 10.0 % [facility] Eosinophils 0.0 0.0 - 5.0 % [facility] Basophils 0.0 0.0 - 1.0 % [facility] Specimen Blood Performing Organization Address City/[facility] P riley Number [facility] DEPARTMENT OF [address] [place] [address] [place], [place] [address] PATHOLOGY AND GENOMIC MEDICINE [facility] [id number] [place] [address] * Type and screen (12/05/2019 10:08 AM HOSE MAKER) ABO grouping AB [facility] Rh type POS [facility] Antibody screen NEG [place] (gel) [facility] Specimen Blood Performing Organization Address [facility] P riley Number [facility] DEPARTMENT [address] [place] [address] 58 PATHOLOGY AND GENOMIC MEDICINE [address] * Basic metabolic panel (12/05/2019 10:08 AM HOSE MAKER) Sodium 137 135 - 148 mEq/L [facility] Potassium 4.9 3.5 - 5.0 mEq/L [facility] Chloride 94 (L) 98 - 112 mEq/L [facility] CO2 28 24 - 31 mEq/L [facility] Anion gap 15@ANIO 7 - 15 mEq/L [facility] BUN 27 (H) 8 - 23 mg/dL [facility] Creatinine 1.20 0.70 - 1.20 mg/dL [facility] Glucose 333 (H) 65 - 99 mg/dL [facility] Calcium 10.5 (H) 8.8 - 10.2 mg/dL [facility] Specimen Plasma specimen Performing Organization Address City/[facility]/ZIP Code P riley Number [facility] DEPARTMENT [address] [place] [address] 58 PATHOLOGY AND GENOMIC MEDICINE [address] after 09/24/2019 Insurance Type Payer Benefit Subscriber ID Effective Phone Address Plan / Dates Group Medicare MEDICARE MEDICARE [id number] 2009- [place], PART A AND Present [place] B Commercial AARP AARP [id number] 2018-P SUPPLEMENT resent Advance Directives For more information, please contact: [phone] Patient Senior Paralegal Explanation Type Date Recorded Advance Directives, 12/05/2019 9:30 AM Living Will and Medical Power of Supervisor [place] Department Advanceed Directive Advance Directives, 12/05/2019 12:00 AM Living Will and Medical Power of Supervisor [place] Department
--- OUTSIDE RECORDS SUMMARY | 2020-09-24 14:23 | XMS REPORT | Continuity of Care Document ---
Author Author [facility] t Organization [facility] Address [address] [place] [address] Phone Unavailable Care Team Providers Care Hydraulic Press In Operator Name Role Phone Onur MARTE, Krystal Melendez PCP Néstor Sherman Attphys [place] MARTE, Caden Oro Attphys VISIT, [facility] MED_ASST Attphys Unavailable VISIT, [facility] NURSE Attphys Unavailable VISIT, [facility] NURSE Attphys Unavailable Danika MARTE, Andrew Shepherd Attphys Jasmin Colmenares Attphys RONNIE MORALES Admphys Unavailable Payers Payer Name Policy Type Policy Number Effective Date Expiration Date S kevin MEDICAREMEDICARE PART A AND [id number] 2008-PresentMARIE BOWLES [place]are [id number] 2009 00:00:00 [place] Ashvin RICHARDSON [id number] 2018-PresentCommercial [id number] 2018 00:00:00 Fam Restorationist Problems Condition Name Condition Details Condition Category Status Onset Date Resolution Date Last Treatment Date Treating Clinician Comments Source PROSTATE TRANSURETHRAL PROCEDURE PROSTATE TRANSURETHRAL PROCEDURE Active 03/01/2020 Raffi Zuñiga Diagnosis Active 2020-03-01 00:00:00 2020-03-02 09:06:00 Raffi Zuñiga UNK UNK Active 02/17/2020 Raffi Zuñiga, [place] Diagnosis Active 2020-02-17 00:00:00 2020-03-07 14:34:00 [facility] Yogesh Chest pain Chest pain Disease Active 2018-01-25 00:00:00 Fam Restorationist JEROME JEROME Active 04/17/2017 [facility] Diagnosis Act jennifer 2017-04-17 00:00:00 2017-04-24 16:08:00 alireza Zuñiga R26.0 - ATAXIC GAIT R26. 0 - ATAXIC GAIT Active 07/08/2016 [facility] [place] Diagnosis Active 2016-07-08 00:01:00 2016-06 12:41:00 [facility] Yogesh Allergic rhinitis (disorder) A llergic rhinitis (disorder) Resolved Problem 08/10/2020 [facility] Problem Resolved 2020-08-10 01:29:17 Dilip Zuñiga Chronic atrial fibrillation (disorder) Chronic atrial fibrillation (disorder) Resolved Problem 08/10/2020 [facility] Problem Resolved 2020-08-10 01:29:17 Raffi Zuñiga Chronic obstructive lung disease (disorder) Chronic obstructive lung disease (disorder) [facility] 2020-08-10 01:29:17 Yves Zuñiga Diabetes mellitus (disorder) D iabetes mellitus (disorder) [facility] Active 2020-08-10 01:29:17 [facility] Yogesh Morbid obesity (disorder) Morb id obesity (disorder) Active Problem 08/10/2020 [facility] Problem Active 2020-08-10 01:29:17 [facility] Yogesh Benign prostatic hypertroph with outflow obstruction ( disorder) Benign prostatic hypertroph with outflow obstruction (disorder) Active Problem 08/10/2020 [facility] Problem Active 2020-08-10 01:29:17 [facility] [place] Coronary arteriosclerosis (disorder) Coronary arteriosclerosis (disorder) Active Problem 08/10/2020 [facility] Problem Active 2020-08-10 01:29:17 Yves rial [place] Device in situ (finding) Jacklyn ce in situ (finding) Active Problem 08/10/2020 [facility] Problem Active 2020-08-10 01:29:17 [facility] Yogesh History of - coronary artery bypass grafting (context- dependent category) History of - coronary artery bypass grafting (context-dependent category) Active Problem 08/10/2020 [facility] Problem A ctive 2020-08-10 01:29:17 [facility] Her gilman Stented coronary artery (finding) Stented coronary artery (finding) Active Problem 08/10/2020 [facility] Problem Active 2020-08-10 01:29:17 Memor ial Yogesh Urinary catheter in situ (finding) Urinary catheter in situ (finding) Active Problem 08/10/2020 [facility] Problem Active 2020-08-10 01:29:17 Memor ial Yogesh Impotence (disorder) Impo tence (disorder) Active Problem 08/10/2020 [facility] Group Problem Active 2020-08-10 01:29:17 [facility] Yogesh Retention of urine (disorder) Retention of urine (disorder) Active Problem 08/10/2020 [facility] Group Problem Active 2020-08-10 01:29:17 [facility] Yogesh OBSTRUCTIVE SLEEP APNEA (ADULT) (PEDIATR OBSTRUCTIVE SLEEP APNEA (ADULT) (PEDIATR Active [facility] Diagnosis Active 2017-04-24 16:08:00 [facility] Allergies, Adverse Reactions, Alerts Allergy Name Allergy Type Status Severity Reaction(s) Onset Date Inacti ve Date Treating Clinician Comments Source promethazine DA Active SV 2020-01-03 00:00:00 [facility] promethazine DA Active SV 2020-01-02 00:00:00 [facility] promethazine DA Active SV 2019-12-27 00:00:00 [facility] promethazine DA Active SV 2019-11-07 00:00:00 [facility] codeine DA Active SV 2019-11-06 00:00:00 [facility] promethazine DA Active SV 2019-11-06 00:00:00 [facility] codeine DA Active SV 2019-10-14 00:00:00 [facility] promethazine DA Active SV 2019-10-14 00:00:00 [facility] codeine DA Active SV 2019-02-17 00:00:00 [facility] promethazine DA Active SV 2019-02-17 00:00:00 [facility] ondansetron DA Active [place] 2019-02-17 00:00:00 [facility] Codeine Propensity to adverse reactions to drug Active Rash 2018-01-25 00:00:00 Fam Methodis t Promethazine Propensity to adverse reactions to drug Active Altered Mental Status 2018-01-25 00:00:00 Fam Yiist ondansetron DA Active [place] 2017-10-14 00:00:00 [facility] promethazine DA Active SV 2017-06-17 00:00:00 [facility] codeine DA Active SV 2013-11-07 00:00:00 [facility] Lisinopril Propensity to adverse reactions to drug Active Other (See Comments) 2013-06-20 00:00:00 Aniyah Lock Phenergan Phenergan Active Yves Zuñiga Family History Family Member Diagnosis Comments Start Date Stop Date Source Natural brother Cancer [facility] ethodist Natural sister Cancer [facility] thodist Social History Social Habit Start Date Stop Date Quantity Comments Source History of tobacco use Current smoker Fam Lock Sex Assigned At Marie ston Restorationist Tobacco use and exposure 2020-01-27 00:00:00 2020-01-27 00:00:00 Curly marie used Fam Lock Alcohol intake 2020-01-27 00:00:00 2020-01-27 00:00:00 Current drinker of alcohol (finding) Fam Lock Tobacco Comment 2019-12-02 00:00:00 2019-12-02 00:00:00 states 1pk/we ek Fam Restorationist Alcohol Comment 2018-11-17 00:00:00 2018-11-17 00:00:00 Occassionally Fam Lock Social History 2017-05-08 04:59:00 2017-05-08 04:59:00 Raffi Zuñiga Smoking Status Start Date Stop Date Source Former smoker 2020-01-27 00:00:00 2020-01-27 00:00:00 Fam Yiist Medications Ordered Medication Name Filled Medication Name Start Date Stop Da te Current Medication? Ordering Clinician Indication Dosage Frequency Signature (SIG) Comments Components Source QUADMIX 2020-08-07 21:01:00 Yes QUADMIX, 1 injection, intraCAVERNOSAL, Daily, PRN intercourse, Icjbrgubuk58wa/mL, Phentolamine 4mg/mL, PGE1 40mcg/mL,Knkjgiqb180bsa/mL start 6units, # 5 mL, Refill(s) 0, Pharmacy: [facility], 172.72, cm, 08/07/20 15:53:00 CDT, Height, 97.756, kg... [facility] [place] QUADMIX 2020-07-16 15:29:00 Yes QUADMIX, 1 injection, intraCAVERNOSAL, Daily, PRN intercourse, Nkrpfvdfoe52pl/mL, Yokihlgnquhe4zo/mL, PGE1 40mcg/mL, Foctjwnb815vjm/mL, # 5 mL, Refill(s) 0, Pharmacy: [email or web address], 172.72, cm, 04/23/20 9:54:00 CDT, Height, 101.818, kg, 04/23/20 9:... [facility] Trimix 2020-03-07 15:00:00 Yes Trimix, 6 units, intraCAVERNOSAL, Q24H, PRN sexual intercourse, Papaverine 30mg/mL, Phentolamine 1mg/mL, Prostaglandin E1 10mcg/mL. 5 mL vial, # 5 mL, Refill(s) 0, Pharmacy: [email or web address] Calcium Chloride 0.0014 MEQ/ML / Potassi um Chloride 0.004 MEQ/ML / Sodium Chloride 0.103 MEQ/ML / Sodium Lactate 0.028 MEQ/ML Injectable Solution 2020-03-02 18:00:00 No 1,000 mL, Infuse Over: 1 hr, Route: IV, PRE OP, Dosing Weight 101.591 kg, Start date: 03/02/20 13:00:00 CDT, Duration: 1 doses or times, [facility] Calcium Chloride 0.0014 MEQ/ML / Potassi um Chloride 0.004 MEQ/ML / Sodium Chloride 0.103 MEQ/ML / Sodium Lactate 0.028 MEQ/ML Injectable Solution 2020-03-02 17:21:00 No 1,000 mL, Rate: 75 ml/hr, Infuse over: 13.3 hr, Route: IV, Dosing Weight 101.591 kg, Total Volume: 1,000, Start date: 03/02/20 12:21:00 CDT, Duration: 30 day, Stop date: 04/01/20 12:20:00 CDT, 2.22, m2 Raffi Zuñiga lidocaine (MARCIOS) 2020-03-02 17:17:00 No Route: IV, Drug form: INJ, ONCE, Stop date: 03/02/20 12:17:00 CDT alireza Laraann phenylephrine (ANES) 2020-03-02 17:17:00 No Route: IV, Drug form: INJ, ONCE, Stop date: 03/02/20 12:17:00 CDT Raffi Zuñiga ondansetron (MARCIOS) 2020-03-02 17:17:00 No Route: IV, Drug form: INJ, ONCE, Stop date: 03/02/20 12:17:00 CDT alireza Zuñiga fentaNYL (ANES) 2020-03-02 17:11:00 No Route: IV, Drug form: INJ, ONCE, Stop date: 03/02/20 12:11:00 CDT alireza Zuñiga propofol (MARCIOS) 2020-03-02 17:11:00 No Route: IV, Drug form: INJ, ONCE, Stop date: 03/02/20 12:11:00 CDT alireza Zuñiga 200 ML Ciprofloxacin 2 MG/ML Injection 2020-03-02 17:00:00 No 400 mg, Route: IVPB, PRE OP, Dosing Weight 102.955, kg, Start date: 03/02/20 12:00:00 CDT, Duration: 1 day, Stop date: 03/03/20 11:59:00 CDT, ABX Indication: Surgical Prophylaxis Raffi Zuñiga midazolam (MARCIOS) 2020-03-02 16:56:00 No Route: IV, Drug form: SOLN, ONCE, Stop date: 03/02/20 11:56:00 CDT alireza Zuñiga acetaminophen (LAVELLE) 10 mg 2020-03-02 16:46:00 No Route: IV, Drug form: INJ, Start date: 03/02/20 11:46:00 CDT, Stop date: 03/02/20 12:46:00 CDT [facility] Tamsulosin hydrochloride 0.4 MG Oral Capsule [Flomax] 2020-03-02 16:35:00 Yes 0.4 mg = 1 cap, PO, Daily, # 30 cap, 1 Refill(s), Pharmacy: [address] oxybutynin 5 mg oral tablet 2020-03-02 16:35:00 Yes 5 mg = 1 tab, PO, TID, PRN Other-See Comments, # 30 tab, 0 Refill(s), Pharmacy: [address] Lactated Ringers Injection IV (ANES) 1000 mL 2020-03-02 16:26:00 No Route: IV, Total Volume: 1,000, Start date: 03/02/20 11:26:00 CDT, Stop date: 03/02/20 12:26:00 CDT [facility] Trelegy Ellipta inhalation powder 2020-03-02 14:36:00 Yes = 1 inhalation, PO, Daily, PRN COPD, # 1 ea, 0 Refill(s) [facility] isosorbide dinitrate 30 mg oral tablet 2020-02-13 13:49:00 Yes 30 mg = 1 tab, PO, Daily, Daily, 0 Refill(s) [facility] clopidogrel (PLAVIX) 75 mg tablet 2019-12-07 14:48:27 Yes 75mg QD Take 75 mg by mouth every morning. Fam Lock carvedilol (COREG) 12.5 MG tablet 2019-12-07 14:48:27 Yes 12.5mg Q.5D Take 12.5 mg by mouth 2 (two) times a day with meals. Fam Lock coenzyme Q10 200 mg capsule 2019-12-07 14:48:27 Yes 200mg QD Take 200 mg by mouth every morning. Fam coronel aspirin (ECOTRIN) 81 MG enteric coated tablet 2019-12-07 14:48:2 7 Yes 81mg QD Take 81 mg by mouth every morning. Fam Lock docusate sodium (COLACE) 100 MG capsule 2019-12-07 14:48:27 Yes 200mg Take 200 mg by mouth as needed. Fam Lock cholecalciferol, vitamin D3, (VITAMIN D3) 5,000 unit tablet 2019-12-07 14:48:27 Yes 1{tbl} QD Take 1 tablet by mouth daily. Fam Lock ferrous sulfate 325 (65 FE) MG tablet 2019-12-07 14:48:27 Y es 325mg QD Take 325 mg by mouth every evening. [facility] magnesium oxide 250 mg tablet 2019-12-07 14:48:27 Yes 250mg QD Take 250 mg by mouth daily with lunch. Fam Lock famotidine (PEPCID) 40 MG tablet 2019-12-07 14:48:27 Yes 40mg QD Take 40 mg by mouth nightly. Fam Lock SITagliptin-metformin (JANUMET) 50-500 mg per tablet 2 14:48:27 Yes 1{tbl} QD Take 1 tablet by mouth nightly. Fam Lock pantoprazole (PROTONIX) 20 MG EC tablet 2019-12-07 14:48:27 Yes 20mg QD Take 20 mg by mouth every morning. Ayad Yiist mirabegron (MYRBETRIQ ORAL) 2019-12-07 14:48:27 Yes 50mg QD Take 50 mg by mouth every morning. Fam Stone t PREDNISONE ORAL 2019-12-07 07:25:32 2019-12-07 00:00:00 No QD Take by mouth every morning. Fam Lock Tamsulosin hydrochloride 0.4 MG Oral Capsule [Flomax] 2019-12-01 23:09:00 Yes 0.4 mg = 1 cap, PO, Daily, # 30 cap, 1 Refill(s), Pharmacy: [address] Ciprofloxacin 500 MG Oral Tablet [Cipro] 2019-12-01 15:10:00 Yes 500 mg = 1 tab, PO, Q12H, X 5 day, # 10 tab, 0 Refill(s), Pharmacy: [address] Fosfomycin 33.3 MG/ML Oral Suspension [Monurol] 2019-11-29 21:15 :00 Yes = 1 Pack, PO, Every Other Da y, # 2 ea, 0 Refill(s), Pharmacy: [address] Amikacin 2019-11-29 18:26:00 No 500 mg, Route: IM, ONCE, Dosing Weight 108.778, kg, Start date: 11/29/19 12:26:00 [employer], Stop date: 11/29/19 12:26:00 [employer] Raffi Zuñiga Ciprofloxacin 500 MG Oral Tablet [Cipro] 2019-11-16 16:01:00 Yes 500 mg = 1 tab, PO, Q12H, Start 3 days before surgery, X 10 day, # 20 tab, 0 Refill(s), Pharmacy: [facility] Ne mouna Zuñiga ferrous sulfate 325 mg oral enteric coated tablet 2019-11-16 15:02:00 Yes 325 mg = 1 tab, PO, Daily, # 30 tab, 0 Refill(s ) [facility] Vitamin D3 5000 intl units oral tablet 2019-08-17 19:26:00 Yes 5,000 IntlUnit = 1 tab, PO, Daily, 0 Refill(s) Raffi Zuñiga Aspirin 81 MG Enteric Coated Tablet 2019-08-17 19:26:00 Yes 81 mg = 1 tab, PO, Daily, # 90 tab, 3 Refill(s) [facility] Yogesh Co-Q10 200 mg oral tablet 2019-08-17 19:26:00 Yes 200 mg = 1 tab, PO, Daily, 0 Refill(s) [facility] gabapentin 600 MG Oral Tablet 2019-08-17 19:26:00 Yes 600 mg = 1 tab, PO, Daily, 0 Refill(s) [facility] gilman allopurinol 300 mg oral tablet 2019-08-17 19:26:00 Yes 300 mg = 1 tab, PO, Daily, # 90 tab, 0 Refill(s) Ne mouna Zuñiga ranitidine 300 mg oral tablet 2019-08-17 19:26:00 Yes 300 mg = 1 tab, PO, Daily, # 90 tab, 0 Refill(s) Ne mouna Laarann atorvastatin 40 MG Oral Tablet [Lipitor] 2019-08-17 19:26:00 Yes 40 mg = 1 tab, PO, Bedtime, # 90 tab, 0 Refill(s) [facility] isosorbide mononitrate 60 mg oral tablet, extended release 2019-08-17 19:26:00 Yes 60 mg = 1 tab, PO, QAM, # 90 ta b, 0 Refill(s) [facility] montelukast 10 mg oral tablet 2019-08-17 19:26:00 Yes 10 mg = 1 tab, PO, Bedtime, # 90 tab, 0 Refill(s) Yves trammell Yogesh rOPINIRole 2 mg oral tablet 2019-08-17 19:26:00 Yes 2 mg = 1 tab, PO, Bedtime, # 90 tab, 1 Refill(s) Dilip cavazos Yogesh losartan 25 mg oral tablet 2019-08-17 19:26:00 Yes 25 mg = 1 tab, PO, Daily, # 90 tab, 0 Refill(s) Ct Zuñiga 24 HR Metformin hydrochloride 500 MG / s itagliptin 50 MG Extended Release Tablet [Janumet 50/500] 2019-08-17 19:26:00 Yes 2 tab, PO, QPM, 0 Refill(s) Raffi Zuñiga magnesium glycinate 200 mg oral tablet 2019-08-17 19:26:00 Yes 400 mg = 2 tab, PO, BID, 0 Refill(s) Ct Zuñiga Symbicort 80/4.5 inhalation aerosol with adapter 2019-08-17 19:26:00 Yes 2 puff, INHALATION, BID, # 6.9 gm, 0 Refill(s) Raffi Zuñiga benzonatate 2019-08-17 19:26:00 Yes PO, TID, 0 Refill(s) Raffi Zuñiga Acetaminophen 325 MG / Hydrocodone Bitartrate 10 MG Oral Tab let 2019-08-17 19:26:00 Yes 1 tab, PO, Q8H, PRN Pain, # 3 0 tab, 0 Refill(s) Raffi Zuñiga Furosemide 40 MG Oral Tablet 2019-08-17 19:26:00 Yes 40 mg = 1 tab, PO, Daily, # 90 tab, 0 Refill(s) Ct Zuñiga Budesonide 0.25 MG/ML Inhalant Solution [Pulmicort] 2018-10 19:26:00 Yes 0.5 mg = 2 ml, NEB, BID, # 120 ea, 0 Ref ill(s) Raffi Zuñiga formoterol fumarate 0.01 MG/ML Inhalant Solution [Perforomis t] 2019-08-17 19:26:00 Yes 20 microgram = 2 mL, INHALATI ON, BID, 0 Refill(s) Raffi Zuñiga Revefenacin 0.0583 MG/ML Inhalation Solution [Yupelri] 2019-08-17 19:26:00 Yes INHALATION, Daily, 0 Refill(s) Raffi Zuñiga Zolpidem tartrate 10 MG Oral Tablet [Ambien] 2019-08-17 19:26:00 Yes 10 mg = 1 tab, PO, Bedtime, # 14 tab, 0 Refill(s) Raffi Zuñiga carvedilol 12.5 mg oral tablet 2019-08-17 19:23:00 Yes 12.5 mg = 1 tab, PO, BID, # 180 tab, 0 Refill(s) Palomo Zuñiga clopidogrel 75 mg oral tablet 2019-08-17 19:23:00 Yes 75 mg = 1 tab, PO, Daily, # 90 tab, 0 Refill(s) Tonja guzman Yogesh pantoprazole 40 MG Enteric Coated Tablet [Protonix] 2018-10 19:23:00 Yes 40 mg = 1 tab, PO, Daily, # 90 tab, 0 Re fill(s) Raffi Zuñiag Trimix 2019-08-10 15:36:00 Yes Trimix, 6 units, intraCAVERNOSAL, Q24H, PRN sexual intercourse, Papaverine 30mg/mL, Phentolamine 1mg/mL, Prostaglandin E1 10mcg/mL. 5 mL vial, # 5 mL, Refill(s) 0, Pharmacy: [facility] Raffi Zuñiga zolpidem (AMBIEN) 10 mg tablet 2018-01-21 00:00:00 2019-12-02 00 :00:00 No 10mg QD Take 10 mg by mouth nightly. Fam Lock allopurinol (ZYLOPRIM) 300 MG tablet 2017-12-30 00:00:00 Ye s 300mg QD Take 300 mg by mouth nightly. Fam White ethodi atorvastatin (LIPITOR) 40 MG tablet 2017-12-30 00:00:00 Yes 40mg QD Take 40 mg by mouth every evening. Fam Lock rOPINIRole (REQUIP) 1 MG tablet 2017-12-27 00:00:00 Yes 4mg QD Take 4 mg by mouth nightly. Fam Lock montelukast (SINGULAIR) 10 mg tablet 2017-12-16 00:00:00 Ye s 10mg QD Take 10 mg by mouth nightly. Fam White ethkrissyst ranitidine (ZANTAC) 300 MG tablet 2017-12-15 00:00:00 2019 00:00:00 No 300mg QD Take 300 mg by mouth nightly. Fam Lock furosemide (LASIX) 40 mg tablet 2017-12-03 00:00:00 Yes 80mg QD Take 80 mg by mouth every morning. PT takes on the morning 0530 and early afternoon (1330) Fam Lock losartan (COZAAR) 25 MG tablet 2017-11-09 00:00:00 Yes 25mg QD Take 25 mg by mouth every evening. Fam oneil Vital Signs Vital Name Observation Time Observation Value Comments Source Height 2020-08-07 20:53:00 172.72 cm [facility] Weight 2020-08-07 20:53:00 [facility] BMI Calculated 2020-08-07 20:53:00 Memori al Yogesh Height 2020-04-23 14:54:00 172.72 cm [facility] Weight 2020-04-23 14:54:00 [facility] BMI Calculated 2020-04-23 14:54:00 Memori al Yogesh Respitory Rate 2020-03-02 18:30:00 Memori al [place] Systolic (mm Hg) 2020-03-02 18:30:00 Yves rial Yogesh Diastolic (mm Hg) 2020-03-02 18:30:00 Mem orial [place] Respitory Rate 2020-03-02 18:15:00 Memori al Yogesh Systolic (mm Hg) 2020-03-02 18:15:00 Yves rial Yogesh Diastolic (mm Hg) 2020-03-02 18:15:00 Mem orial [place] Respitory Rate 2020-03-02 18:00:00 Memori al Yogesh Systolic (mm Hg) 2020-03-02 18:00:00 Yves rial [place] Diastolic (mm Hg) 2020-03-02 18:00:00 Mem orial [place] Height 2020-03-02 14:30:00 170.18 cm [facility] Weight 2020-03-02 14:30:00 [facility] BMI Calculated 2020-03-02 14:30:00 Memori al [place] Systolic blood pressure 2019-12-07 13:50:00 140 mm[Hg] Fam Yiist Diastolic blood pressure 2019-12-07 13:50:00 63 mm[Hg] Fam Lock Heart rate 2019-12-07 13:50:00 64 /min Fam Lock Respiratory rate 2019-12-07 13:50:00 16 /min Santos bravo Restorationist Oxygen saturation in Arterial blood by Pulse oximetry 12-07 13:50:00 98 /min Fam Restorationist Body temperature 2019-12-07 09:50:00 36.44 Kaylin Santos bravo Restorationist Body height 2019-12-07 07:33:00 170.2 cm Otto Restorationist Body weight 2019-12-07 07:33:00 106.459 kg Otto Restorationist BMI 2019-12-07 07:33:00 36.76 kg/m2 Otto Restorationist Height 2019-11-29 17:12:00 172.72 cm [facility] [place] Weight 2019-11-29 17:12:00 [facility] [place] BMI Calculated 2019-11-29 17:12:00 Memori al [place] Height 2019-11-16 15:00:00 172.72 cm [facility] [place] Weight 2019-11-16 15:00:00 [facility] [place] BMI Calculated 2019-11-16 15:00:00 Memori al Yogesh Height 2019-11-02 17:30:00 172.72 cm [facility] Yogesh Weight 2019-11-02 17:30:00 [facility] [place] BMI Calculated 2019-11-02 17:30:00 Memori al Yogesh Height 2019-09-14 14:31:00 172.72 cm [facility] Yogesh Weight 2019-09-14 14:31:00 [facility] Yogesh BMI Calculated 2019-09-14 14:31:00 Memori al Yogesh Height 2019-08-10 14:53:00 172.72 cm [facility] Yogesh Weight 2019-08-10 14:53:00 [facility] [place] BMI Calculated 2019-08-10 14:53:00 Memori al [place] Procedures Procedure Date / Time Performed Performing Clinician [facility] Insertion of temporary indwelling bladder catheter; si mple (eg, Prather) 2020-02-08 14:11:00 [facility] [place] CV LEFT HEART CATH LV GRAM WITH CORS 2019-12-07 09:44:06 Ronnie Morales POC GLUCOSE 2019-12-07 08:15:00 Ronnie Morales XR CHEST 2 VW 2019-12-05 11:03:00 Ronnie Morales ECG 12-LEAD 2019-12-05 10:38:43 Ronnie Morales TYPE AND SCREEN 2019-12-05 10:08:00 Ronnie Morales PROTHROMBIN TIME WITH INR 2019-12-05 10:08:00 Ronnie Morales BASIC METABOLIC PANEL 2019-12-05 10:08:00 Ronnie Morales Uday taylor Restorationist CBC WITH PLATELET AND DIFFERENTIAL 2019-12-05 10:08:00 Danika V steffanieCarline Lock ESTIMATED GFR 2019-12-05 10:08:00 Ronnie Morales MANUAL DIFFERENTIAL 2019-12-05 10:08:00 Ronnie Morales ton Restorationist PARTIAL THROMBOPLASTIN TIME (PTT) 2019-12-05 10:08:00 Bekah Morales Electromyography studies (EMG) of anal o r urethral sphincter, other than needle, any technique 2019-11-16 16:01:00 [facility] Voiding pressure studies, intra-abdomina l (ie, rectal, gastric, intraperitoneal) (List separately in addition to code for primary procedure) 2019-11-16 16:01:00 [facility] Complex uroflowmetry (eg, calibrated electronic equipment) 2 16:01:00 [facility] Cystourethroscopy (separate procedure) 2019-11-16 16:01:00 [facility] Complex cystometrogram (ie, calibrated e lectronic equipment); with voiding pressure studies (ie, bladder voiding pressure), any technique 2019-11-16 16:01:00 [facility] Measurement of post-voiding residual uri ne and/or bladder capacity by ultrasound, non-imaging 2019-11-03 20:40:00 [facility] Injection of corpora cavernosa with phar macologic agent(s) (eg, papaverine, phentolamine) 2019-09-14 14:40:00 [facility] Carpal tunnel release 2018-05-26 00:00:00 Tonja Garcia Nerve block with injection of lumbar spine using fluor oscopic guidance 2017-12-24 00:00:00 [facility] Cholecystectomy 2017-10-26 00:00:00 [facility] Her gilman Decompression of spinal cord 2016-11-26 00:00:00 [facility] Rotator cuff repair 2014-04-25 00:00:00 [facility] Repair of dental implant 2013-01-24 00:00:00 [facility] orial Yogesh Lumbar discectomy 1993-06-26 00:00:00 [facility] Paty ermsujit Spinal laminectomy 1993-06-26 00:00:00 [facility] Rhinoplasty 1993-03-26 00:00:00 [facility] Her gilman Bilateral inguinal hernia repair 1983-01-24 00:00:00 [facility] MCL - Repair of medial collateral ligament 1969-10-26 00:00:00 [facility] CABG x 3 - Coronary artery bypass grafts x 3 [facility] Insertion of coronary artery stent [facility] Operation [facility] Plan of Care Planned Activity Planned Date Details Comments Source Future Scheduled Test 2020-05-26 00:00:00 INFLUENZA VACCINE [code = INFLUENZA VACCINE] [facility] Scheduled Test 2009 00:00:00 65+ PNEUMOCOCCAL V ACCINE (1 of 1 - PPSV23) [code = 65+ PNEUMOCOCCAL VACCINE (1 of 1 - PPSV23)] [facility] Future Scheduled Test 1994 00:00:00 COLONOSCOPY SCREEN ING [code = COLONOSCOPY SCREENING] [facility] Future Scheduled Test 1994 00:00:00 SHINGLES VACCINES (#1) [code = SHINGLES VACCINES (#1)] [facility] Future Scheduled Test 1954 00:00:00 DIABETES: RETINAL EYE EXAM [code = DIABETES: RETINAL EYE EXAM] [facility] Future Scheduled Test 1954 00:00:00 DIABETIC FOOT EXAM [code = DIABETIC FOOT EXAM] [facility] Future Scheduled Test 1954 00:00:00 URINE MICROALBUMIN [code = URINE MICROALBUMIN] [facility] Encounters Start Date/Time End Date/Time Encounter Type Admission Type [facility] Care Department Encounter ID Source 2020-08-07 16:00:00 2020-08-07 23:59:59 Outpatient Tomás Sherman [facility] [id number] 2020-08-01 00:00:00 2020-08-01 00:00:00 Telephone Preethi Adair i [facility] [id number] 2020-07-27 07:46:53 2020-07-27 08:01:53 Office Visit Preethi Higgins [facility] [id number] 2020-07-20 10:40:00 2020-07-20 10:40:00 Outpatient Tomás Sherman [facility] [id number] 2020-07-16 09:00:00 2020-07-16 09:00:00 Outpatient Tomás [facility]MG [facility] [id number] 2020-04-23 09:00:00 2020-04-23 23:59:59 Outpatient Tomás ShermanMG [facility] [id number] 2020-03-09 08:30:00 2020-03-09 08:30:00 Outpatient VISIT, ME D_ASST [facility]AW [facility] [id number] 2020-03-05 08:45:00 2020-03-05 23:59:59 Outpatient Tomás ShermanMG [facility] [id number] 2020-03-02 09:00:00 2020-03-02 13:47:00 Outpatient Tomás ShermanPL [facility] [id number] 2020-03-02 09:00:00 2020-03-02 09:00:[id number] [facility] 2020-03-01 08:16:00 2020-03-01 08:16:00 Outpatient MHSE URO [id number] [facility] 2020-02-24 09:30:00 2020-02-24 23:59:59 Outpatient VISIT, NU RSE UAHT [facility] [id number] 2020-02-13 09:18:24 2020-02-14 23:59:59 Outpatient [facility] [id number] 2020-02-13 09:50:00 2020-02-13 09:50:00 Outpatient Tomás ShermanMG [facility] [id number] 2020-02-13 08:50:00 2020-02-13 08:50:00 Outpatient Tomás ShermanMG [facility] [id number] 2020-02-08 08:45:00 2020-02-08 23:59:59 Outpatient VISIT, ME D_ASST UAWC [facility] [id number] 2020-01-23 08:30:00 2020-01-23 08:30:00 Outpatient VISIT, ME D_ASST UAWC [facility] [id number] 2020-01-20 15:15:00 2020-01-20 23:59:59 Outpatient Tomás Sherman [facility] [id number] 2020-01-11 08:30:00 2020-01-11 23:59:59 Outpatient Tomás Sherman [facility] [id number] 2020-01-10 08:45:00 2020-01-10 23:59:59 Outpatient Tomás Sherman [facility] [id number] 2019-12-29 08:51:07 2019-12-30 23:59:59 Outpatient [facility] [id number] 2019-12-29 13:30:00 2019-12-29 23:59:59 Outpatient VISIT, NU RSE UAWC [facility] [id number] 2019-12-21 08:30:00 2019-12-21 08:30:00 Outpatient Tomás Sherman [facility] [id number] 2019-12-07 11:00:30 2019-12-08 23:59:59 Outpatient [facility] [id number] 2019-12-07 00:00:00 2019-12-07 00:00:00 Outpatient RONNIE MORALES [facility] 021 [id number] Fam [facility] 2019-12-05 11:53:03 2019-12-06 23:59:59 Outpatient [facility] [id number] 2019-12-05 00:00:00 2019-12-05 00:00:00 Outpatient RONNIE MORALES [facility] [id number] Fam [facility] 2019-12-01 08:30:00 2019-12-01 23:59:59 Outpatient VISIT, NU RSE UAWC [facility] [id number] 2019-11-29 15:40:00 2019-11-29 23:59:59 Outpatient Tomás Sherman MG [facility] [id number] 2019-11-29 09:45:00 2019-11-29 23:59:59 Outpatient VISIT, ME D_ASST [facility] [id number] 2019-11-29 09:00:00 2019-11-29 09:00:00 Outpatient VISIT, ME D_ASST [facility] [id number] 2019-11-22 11:30:00 2019-11-22 23:59:59 Outpatient Tomás Sherman MG [facility] [id number] 2019-11-16 08:45:00 2019-11-16 23:59:59 Outpatient Tomás Sherman MG [facility] [id number] 2019-11-16 08:30:00 2019-11-16 08:30:00 Outpatient Tomás Sherman MG [facility] [id number] 2019-11-15 16:00:00 2019-11-15 23:59:59 Outpatient Tomás Sherman MG [facility] [id number] 2019-11-04 14:13:00 2019-11-05 23:59:59 Outpatient MH[facility] [id number] 2019-11-03 08:30:00 2019-11-03 23:59:59 Outpatient VISIT, ME D_ASST [facility] [id number] 2019-11-02 11:30:00 2019-11-02 23:59:59 Outpatient Tomás Sherman [facility] [id number] 2019-09-14 08:40:00 2019-09-14 23:59:59 Outpatient Tomás Sherman MG [facility] [id number] 2019-08-10 10:00:00 2019-08-10 23:59:59 Outpatient Tomás Sherman MG [facility] [id number] 2017-05-07 09:29:00 2017-05-07 23:59:00 Outpatient Steven Colmenares [id number] 2016-07-17 12:22:00 2016-07-17 23:59:00 Outpatient Steven Colmenares [id number] Results Test Description Test Time Test Comments Results Result Comments Source GLUBED 2020-01-05 16:29:00 Test Item GLUBED (test code = GLUBED) 91 MG/DL 70-110 N Performed by certified trimming operator at [facility] [id number] 12:24:00* Test Item Value Reference Range Interpretation Comments GLUBED (test code = GLUBED) 131 MG/DL 70-110 H Performed by certified trimming operator at [facility] [id number] 09:02:00* Test Item Value Reference Range Interpretation Comments GLUBED (test code = GLUBED) 124 MG/DL 70-110 H Performed by certified trimming operator at [facility] B-TYPE NATRIURETIC [id number] 05:46:00* Test Item Value Reference Range Interpretation Comments B-TYPE NATRIURETIC PEPTIDE (test code = BNP) 524.3 PG/ML 0-100 H BASIC METABOLIC [id number] 05:20:00* Test Item Value Reference Range Interpretation Comments SODIUM (test code = NA) 141 mEq/L 134-147 N POTASSIUM (test code = K) 4.1 mEq/L 3.4-5.0 N CHLORIDE (test code = CL) 109 mEq/L 100-108 H CARBON DIOXIDE (test code = CO2) 27 mEq/L 21-33 N ANION GAP (test code = GAP) 9 0-20 N GLUCOSE (test code = GLU) 121 mg/dL 70-110 H BLOOD UREA NITROGEN (test code = BUN) 11 mg/dL 7-18 GLOMERULAR FILTRATION RATE (test code = GFR) 94.2 70-80 H Units of measure = ml/min/1.73 m2 CREATININE (test code = CREAT) 0.8 mg/dL 0.6-1.3 CALCIUM (test code = CA) 8.7 mg/dL 8.0-10.5 N CBC W/AUTO [id number] 05:14:00* Test Item Value Reference Range Interpretation Comments WHITE BLOOD CELL (test code = WBC) 6.63 x10 3/uL 4.5-11.0 N RED BLOOD CELL (test code = RBC) 3.13 x10 6/uL 4.00-5.60 L HEMOGLOBIN (test code = HGB) 9.1 g/dL 12.5-16.9 L HEMATOCRIT (test code = HCT) 29.5 % 37.5-50.7 L MEAN CELL VOLUME (test code = MCV) 94.2 fL 81.0-99.0 N MEAN CELL HGB (test code = MCH) 29.1 pg 27.0-33.0 N MEAN CELL HGB CONCETRATION (test code = MCHC) 30.8 g/dL 33.0-37. 0 L RED CELL DISTRIBUTION WIDTH CV (test code = RDW) 15.0 % 11.5- 14.5 H RED CELL DISTRIBUTION WIDTH SD (test code = RDW-SD) 52.2 fL 37 .0-54.0 N PLATELET COUNT (test code = PLT) 244 x10 3/uL 150-400 N MEAN PLATELET VOLUME (test code = MPV) 9.7 fL 7.0-9.0 H NEUTROPHIL % (test code = NT%) 62.5 % 56.0-77.0 N IMMATURE GRANULOCYTE % (test code = IG%) 1.1 % 0.0-2.0 N LYMPHOCYTE % (test code = LY%) 22.0 % 14.0-32.0 N MONOCYTE % (test code = MO%) 10.1 % 4.8-9.0 H EOSINOPHIL % (test code = EO%) 3.5 % 0.3-3.7 N BASOPHIL % (test code = BA%) 0.8 % 0.0-2.0 N NUCLEATED RBC % (test code = NRBC%) 0.0 % 0-0 N NEUTROPHIL # (test code = NT#) 4.15 x10 3/uL 2.0-7.6 N IMMATURE GRANULOCYTE # (test code = IG#) 0.07 x10 3/uL 0.00-0.03 H LYMPHOCYTE # (test code = LY#) 1.46 x10 3/uL 1.0-3.8 N MONOCYTE # (test code = MO#) 0.67 x10 3/uL 0.1-0.8 N EOSINOPHIL # (test code = EO#) 0.23 x10 3/uL 0.0-0.2 H BASOPHIL # (test code = BA#) 0.05 x10 3/uL 0.0-0.2 N NUCLEATED RBC # (test code = NRBC#) 0.00 x10 3/uL 0.0-0.1 N MANUAL DIFF REQUIRED (test code = MDIFF) NO [id number] 20:41:00* Test Item Value Reference Range Interpretation Comments GLUBED (test code = GLUBED) 156 MG/DL 70-110 H Performed by certified trimming operator at [facility] [id number] 18:13:00* Test Item Value Reference Range Interpretation Comments GLUBED (test code = GLUBED) 146 MG/DL 70-110 H Performed by certified trimming operator at [facility] [id number] 14:41:00* Test Item Value Reference Range Interpretation Comments GLUBED (test code = GLUBED) 129 MG/DL 70-110 H Performed by certified trimming operator at [facility] [id number] 13:08:00* Test Item Value Reference Range Interpretation Comments GLUBED (test code = GLUBED) 106 MG/DL 70-110 N Performed by certified trimming operator at [facility] [id number] 09:21:00* Test Item Value Reference Range Interpretation Comments GLUBED (test code = GLUBED) 139 MG/DL 70-110 H Performed by certified trimming operator at [facility] CBC W/AUTO [id number] 08:05:00* Test Item Value Reference Range Interpretation Comments WHITE BLOOD CELL (test code = WBC) 6.00 x10 3/uL 4.5-11.0 N RED BLOOD CELL (test code = RBC) 3.09 x10 6/uL 4.00-5.60 L HEMOGLOBIN (test code = HGB) 9.1 g/dL 12.5-16.9 L HEMATOCRIT (test code = HCT) 28.8 % 37.5-50.7 L MEAN CELL VOLUME (test code = MCV) 93.2 fL 81.0-99.0 N MEAN CELL HGB (test code = MCH) 29.4 pg 27.0-33.0 N MEAN CELL HGB CONCETRATION (test code = MCHC) 31.6 g/dL 33.0-37. 0 L RED CELL DISTRIBUTION WIDTH CV (test code = RDW) 14.9 % 11.5- 14.5 H RED CELL DISTRIBUTION WIDTH SD (test code = RDW-SD) 51.3 fL 37 .0-54.0 N PLATELET COUNT (test code = PLT) 275 x10 3/uL 150-400 N MEAN PLATELET VOLUME (test code = MPV) 10.1 fL 7.0-9.0 H NEUTROPHIL % (test code = NT%) 56.0 % 56.0-77.0 N IMMATURE GRANULOCYTE % (test code = IG%) 1.2 % 0.0-2.0 N LYMPHOCYTE % (test code = LY%) 24.5 % 14.0-32.0 N MONOCYTE % (test code = MO%) 13.3 % 4.8-9.0 H EOSINOPHIL % (test code = EO%) 4.3 % 0.3-3.7 H BASOPHIL % (test code = BA%) 0.7 % 0.0-2.0 N NUCLEATED RBC % (test code = NRBC%) 0.0 % 0-0 N NEUTROPHIL # (test code = NT#) 3.36 x10 3/uL 2.0-7.6 N IMMATURE GRANULOCYTE # (test code = IG#) 0.07 x10 3/uL 0.00-0.03 H LYMPHOCYTE # (test code = LY#) 1.47 x10 3/uL 1.0-3.8 N MONOCYTE # (test code = MO#) 0.80 x10 3/uL 0.1-0.8 N EOSINOPHIL # (test code = EO#) 0.26 x10 3/uL 0.0-0.2 H BASOPHIL # (test code = BA#) 0.04 x10 3/uL 0.0-0.2 N NUCLEATED RBC # (test code = NRBC#) 0.00 x10 3/uL 0.0-0.1 N MANUAL DIFF REQUIRED (test code = MDIFF) NO [id number] 21:11:00* Test Item Value Reference Range Interpretation Comments GLUBED (test code = GLUBED) 107 MG/DL 70-110 N Performed by certified trimming operator at [facility] [id number] 12:32:00* Test Item Value Reference Range Interpretation Comments GLUBED (test code = GLUBED) 95 MG/DL 70-110 N Performed by certified trimming operator at [facility] [id number] 08:27:00* Test Item Value Reference Range Interpretation Comments GLUBED (test code = GLUBED) 96 MG/DL 70-110 N Performed by certified trimming operator at [facility] CBC W/AUTO [id number] 07:48:00* Test Item Value Reference Range Interpretation Comments WHITE BLOOD CELL (test code = WBC) 6.68 x10 3/uL 4.5-11.0 N RED BLOOD CELL (test code = RBC) 3.12 x10 6/uL 4.00-5.60 L HEMOGLOBIN (test code = HGB) 9.2 g/dL 12.5-16.9 L HEMATOCRIT (test code = HCT) 28.9 % 37.5-50.7 L MEAN CELL VOLUME (test code = MCV) 92.6 fL 81.0-99.0 N MEAN CELL HGB (test code = MCH) 29.5 pg 27.0-33.0 N MEAN CELL HGB CONCETRATION (test code = MCHC) 31.8 g/dL 33.0-37. 0 L RED CELL DISTRIBUTION WIDTH CV (test code = RDW) 14.9 % 11.5- 14.5 H RED CELL DISTRIBUTION WIDTH SD (test code = RDW-SD) 50.4 fL 37 .0-54.0 N PLATELET COUNT (test code = PLT) 301 x10 3/uL 150-400 N MEAN PLATELET VOLUME (test code = MPV) 10.2 fL 7.0-9.0 H NEUTROPHIL % (test code = NT%) 61.6 % 56.0-77.0 N IMMATURE GRANULOCYTE % (test code = IG%) 1.2 % 0.0-2.0 N LYMPHOCYTE % (test code = LY%) 19.6 % 14.0-32.0 N MONOCYTE % (test code = MO%) 12.1 % 4.8-9.0 H EOSINOPHIL % (test code = EO%) 4.8 % 0.3-3.7 H BASOPHIL % (test code = BA%) 0.7 % 0.0-2.0 N NUCLEATED RBC % (test code = NRBC%) 0.0 % 0-0 N NEUTROPHIL # (test code = NT#) 4.11 x10 3/uL 2.0-7.6 N IMMATURE GRANULOCYTE # (test code = IG#) 0.08 x10 3/uL 0.00-0.03 H LYMPHOCYTE # (test code = LY#) 1.31 x10 3/uL 1.0-3.8 N MONOCYTE # (test code = MO#) 0.81 x10 3/uL 0.1-0.8 H EOSINOPHIL # (test code = EO#) 0.32 x10 3/uL 0.0-0.2 H BASOPHIL # (test code = BA#) 0.05 x10 3/uL 0.0-0.2 N NUCLEATED RBC # (test code = NRBC#) 0.00 x10 3/uL 0.0-0.1 N MANUAL DIFF REQUIRED (test code = MDIFF) NO COMPREHENSIVE METABOLIC [id number] 07:45:00* Test Item Value Reference Range Interpretation Comments SODIUM (test code = NA) 135 mEq/L 134-147 N POTASSIUM (test code = K) 3.9 mEq/L 3.4-5.0 N SP ECIMEN 1+ HEMOLYZED.Results known to be adversely affected by hemolysis are: Potassium Magnesium LDH Phosphorus CHLORIDE (test code = CL) 100 mEq/L 100-108 N CARBON DIOXIDE (test code = CO2) 27 mEq/L 21-33 N ANION GAP (test code = GAP) 12 0-20 N GLUCOSE (test code = GLU) 115 mg/dL 70-110 H BLOOD UREA NITROGEN (test code = BUN) 28 mg/dL 7-18 H GLOMERULAR FILTRATION RATE (test code = GFR) 45.6 70-80 L Units of measure = ml/min/1.73 m2 CREATININE (test code = CREAT) 1.5 mg/dL 0.6-1.3 H TOTAL PROTEIN (test code = PROT) 6.5 g/dL 6.4-8.2 N ALBUMIN (test code = ALB) 2.20 g/dL 3.4-5.0 L CALCIUM (test code = CA) 8.6 mg/dL 8.0-10.5 N BILIRUBIN TOTAL (test code = BILT) 0.3 MG/DL <1.5 N SGOT/AST (test code = AST) 21 IUnit/L 15-37 N SGPT/ALT (test code = ALT) 14 IUnit/L 15-65 L ALKALINE PHOSPHATASE TOTAL (test code = ALKP) 72 IUnit/L 20-125 N [id number] 07:45:00* Test Item Value Reference Range Interpretation Comments MAGNESIUM (test code = MAG) 2.00 mg/dL 1.8-2.4 N [id number] 01:16:00* Test Item Value Reference Range Interpretation Comments GLUBED (test code = GLUBED) 106 MG/DL 70-110 N Performed by certified trimming operator at [facility] UA RFLX MICR CULT IF [id number] 21:45:00* Test Item Value Reference Range Interpretation Comments UA COLOR (test code = COLU) STRAW YEL/STRAW UA APPEARANCE (test code = APPU) CLEAR CLEAR UA GLUCOSE DIPSTICK (test code = DGLUU) NEGATIVE NEGATIVE UA BILIRUBIN DIPSTICK (test code = BILU) NEGATIVE NEGATIVE UA KETONE DIPSTICK (test code = KETU) NEGATIVE NEGATIVE UA SPECIFIC GRAVITY (test code = SGU) 1.005 1.005-1.030 N UA BLOOD DIPSTICK (test code = SHEREEN) 1+ NEGATIVE A UA PH DIPSTICK (test code = NICOLE) 6.0 5.0-7.0 N UA PROTEIN DIPSTICK (test code = PROU) NEGATIVE NEGATIVE UA UROBILINIOGEN DIPSTICK (test code = URO) 0.2 mg/dL 0.2-1.0 UA NITRITE DIPSTICK (test code = IZA) NEGATIVE NEGATIVE UA LEUKOCYTE ESTERASE DIPSTICK (test code = LEUU) NEGATIVE NEGA TIVE UA WBC (test code = WBCU) 0-3 WBC/HPF 0-3 UA RBC (test code = RBCU) 0-3 RBC/HPF 0-3 UA WBC NO REFLEX (test code = WBCUCL) 0-3 WBC/HPF 0-3 UA BACTERIA (test code = BACU) TRACE /HPF NONE SEEN UA SQUAMOUS CELLS (test code = SQU) NONE SEEN /HPF NONE SEEN UA MUCUS (test code = MUCU) TRACE /LPF NONE SEEN Indication for culture: Dysuria/FrequencySpecimen Description: INDWELLING CA TH (PRATHER)Cath Status: Over 71 [id number] 21:41:00* Test Item Value Reference Range Interpretation Comments TROPONIN-I (test code = TROPI) < 0.015 ng/mL 0.000-0.045 N Negative: <= 0.045 Positive: >= 0.046 Correlation with serial results, other cardiac markers andclinical findings is necessary to determine the clinicalsignificance of this result. Results using different methodologies should not be comparedto one another as quantitative results may vary by method. COMMENTS: 3 troponins total (including troponin done in ED)[id number] 21:31:00* Test Item Value Reference Range Interpretation Comments GLUBED (test code = GLUBED) 166 MG/DL 70-110 H Performed by certified trimming operator at [facility] [id number] 17:35:00* Test Item Value Reference Range Interpretation Comments TROPONIN-I (test code = TROPI) < 0.015 ng/mL 0.000-0.045 N Negative: <= 0.045 Positive: >= 0.046 Correlation with serial results, other cardiac markers andclinical findings is necessary to determine the clinicalsignificance of this result. Results using different methodologies should not be comparedto one another as quantitative results may vary by method. COMMENTS: 3 troponins total (including troponin done in ED)B-TYPE NATRIURETIC [id number] 14:36:00* Test Item Value Reference Range Interpretation Comments B-TYPE NATRIURETIC PEPTIDE (test code = BNP) 89.5 PG/ML 0-100 N BASIC METABOLIC [id number] 13:59:00* Test Item Value Reference Range Interpretation Comments SODIUM (test code = NA) 128 mEq/L 134-147 L POTASSIUM (test code = K) 3.7 mEq/L 3.4-5.0 N CHLORIDE (test code = CL) 94 mEq/L 100-108 L CARBON DIOXIDE (test code = CO2) 28 mEq/L 21-33 N ANION GAP (test code = GAP) 10 0-20 N GLUCOSE (test code = GLU) 103 mg/dL 70-110 N BLOOD UREA NITROGEN (test code = BUN) 32 mg/dL 7-18 H GLOMERULAR FILTRATION RATE (test code = GFR) 29.3 70-80 L Units of measure = ml/min/1.73 m2 CREATININE (test code = CREAT) 2.2 mg/dL 0.6-1.3 H CALCIUM (test code = CA) 9.0 mg/dL 8.0-10.5 N - XR CHEST 1 [id number] 13:59:00 FAX: Nora Mendez [phone] [place]: St: PRE Name: CARINA BERNARDO [facility] : [birth year] Age/S: 74/M [address] [place] [address] Bl Unit #: [id number] Loc: [place] [address] Phys: Jovanni Livingston MD Acct: [id number] Dis Date: Status: PRE ER PHONE #: [phone] Exam Date: 01/02/2020 1355 FAX #: [phone] Reason: SYNCOPE EXAMS: CPT CODE: [id number] XR CHEST 1 V 44367 CLINICAL HISTORY:SYNCOPE COMPARISON:December 27, 2019 at 1009 Frontal film of the chest pe rformed at 1349 on January 02, 2020 demonstrates sternotomy sutures as well a s hardware secondary to fusion surgery involving cervical spine. Monitor leads are present. Heart size is stable and lung castaneda are clear. There is no evidence of pneumonia or congestive failure. IMPRESSION: No evidence of pneumonia or congestive failure is seen. at 0636 Reported and signed by: Fish Lew M.D. CC: Nora Mohr MD Technologist: RT Vanessa(Lorin) Trnmigdalia Date/Time/By: 01/02/2020 (1241) : By: Heriberto Fraser Print D/T: S: 01/02/2020 (0749) PAGE 1 Signed Report - CT HEAD/BRAIN W/O [id number] 13:56:00 Name: CARINA LUCIO [facility] [place] : 1945 Age/S: 74 / M [address] [place] [address] Unit #: [id number] Loc: [place] [address] Phys: Jovanni Livingston MD Acct: [id number] Dis Date: Status: PRE ER PHONE #: [phone] Exam Date: 01/02/2020 1338 FAX #: [phone] Reason: SYNCOPE EXAMS: CPT CODE: [id number] CT HEAD/BRAIN W/O CONT 28141 PROCEDURE: CT HEAD WITHOUT CONTRAST INDICATION: Syncope COMPARISON: 10/14/2019 TECHNIQUE: Noncontrast helical imaging performed skull base to the vertex. Multiplanar reformations are obtained. CT imaging performed at this location utilizes radiation dose optimization techniques which include one or more of the following: -Automated exposure control -Adjustment of the mA and/or kV according to patient size -Use of iterative reconstruction technique CT Radiation Dose DLP 472.16 mGy-cm LIMITATIONS: None. FINDINGS: BRAIN PARENCHYMA: There are generalized involutional changes. Mild scattered areas of diminished atten uation in the cerebral white matter bilateral. The cortical architecture i s maintained. Prominent cisterna magna versus arachnoid cyst right paramed neptali posterior fossa. The posterior fossa contents are otherwise unremarkab le. Calcified plaque cavernous carotid arteries. No intra-axial or extra-a xial hemorrhage, mass lesion or mass effect. VENTRICLES: T he ventricular system is normal. The basilar cisterns are normal. ORBITS, MASTOIDS AND PARANASAL SINUSES: The visualized orbits are unremarkable. Patchy mucosal thickening paranasal sinuses. Evidence for pr evious nasal antral windows. No fluid levels. The mastoid air cells are cl ear. SKULL: The calvarium is intact. IMPRESSION: 1. No acute abnormality. 2. No hemorrhage, mass lesion or eviden ce of acute infarct. 3. Mild chronic microvascular ischemic changes. 4. Paranasal sinus mucosal disease. If there is continued clinical concern, further imaging options include MRI. JOE SMITH 1 Signed Report (CONTINUED) Name: CARINA LUCIO [facility] [place] : [birth year] Age/S: 74 / M [address] [place] [address] Unit #: [id number] Loc: [place] [address] Phys: Jovanni Livingston MD Acct: [id number] Dis Date: Status: PRE ER PHONE #: [phone] Exam Date: 01/02/2020 1338 FAX #: [phone] Reason: SYNCOPE EXAMS: CPT CODE: [id number] CT HEAD/BRAIN W/O CONT [id number] <Continued> SL: [id number] at 1356 Reported and signed by: Dominic Lane M.D. CC: Nora Mohr MD Technologist:Nelly Barrientos, RT(R)(CT) CTDI: DLP: Trnscb Date/Time: 01/02/2020 (3777) Jamison Orig Print D/T: S: 01/02/2020 (0942) PAGE 2 Signed Report CBC W/AUTO [id number] 13:53:00* Test Item Value Reference Range Interpretation Comments WHITE BLOOD CELL (test code = WBC) 9.49 x10 3/uL 4.5-11.0 RED BLOOD CELL (test code = RBC) 3.42 x10 6/uL 4.00-5.60 L HEMOGLOBIN (test code = HGB) 10.0 g/dL 12.5-16.9 L HEMATOCRIT (test code = HCT) 31.7 % 37.5-50.7 L MEAN CELL VOLUME (test code = MCV) 92.7 fL 81.0-99.0 N MEAN CELL HGB (test code = MCH) 29.2 pg 27.0-33.0 N MEAN CELL HGB CONCETRATION (test code = MCHC) 31.5 g/dL 33.0-37. 0 L RED CELL DISTRIBUTION WIDTH CV (test code = RDW) 15.2 % 11.5- 14.5 H RED CELL DISTRIBUTION WIDTH SD (test code = RDW-SD) 51.9 fL 37 .0-54.0 N PLATELET COUNT (test code = PLT) 319 x10 3/uL 150-400 N MEAN PLATELET VOLUME (test code = MPV) 9.9 fL 7.0-9.0 H NEUTROPHIL % (test code = NT%) 69.4 % 56.0-77.0 N IMMATURE GRANULOCYTE % (test code = IG%) 1.1 % 0.0-2.0 N LYMPHOCYTE % (test code = LY%) 13.5 % 14.0-32.0 L MONOCYTE % (test code = MO%) 11.0 % 4.8-9.0 H EOSINOPHIL % (test code = EO%) 4.3 % 0.3-3.7 H BASOPHIL % (test code = BA%) 0.7 % 0.0-2.0 N NUCLEATED RBC % (test code = NRBC%) 0.0 % 0-0 N NEUTROPHIL # (test code = NT#) 6.59 x10 3/uL 2.0-7.6 N IMMATURE GRANULOCYTE # (test code = IG#) 0.10 x10 3/uL 0.00-0.03 H LYMPHOCYTE # (test code = LY#) 1.28 x10 3/uL 1.0-3.8 N MONOCYTE # (test code = MO#) 1.04 x10 3/uL 0.1-0.8 H EOSINOPHIL # (test code = EO#) 0.41 x10 3/uL 0.0-0.2 H BASOPHIL # (test code = BA#) 0.07 x10 3/uL 0.0-0.2 N NUCLEATED RBC # (test code = NRBC#) 0.00 x10 3/uL 0.0-0.1 N MANUAL DIFF REQUIRED (test code = MDIFF) NO TROPONIN-I [id number] 13:45:00* Test Item Value Reference Range Interpretation Comments TROPONIN-I RAPID (test code = TROPIRAP) 0.00 ng/mL 0.00-0.08 N Performed by certified trimming operator at [facility] Negative: <= 0.08 Positive: >= 0.09An elevated troponin value alone is not sufficient todiagnose a myocardial infarction. Rather, the patient sclinical presentation (history, physical exam) and ECGshould be used in conjunction with troponin in thediagnostic evaluation of suspected myocardial infarction. Aserial sampling protocol is recommended to facilitate the identification of temporal changes in troponin levels characteristic of [place]. BASIC METABOLIC [id number] 13:45:00* Test Item Value Reference Range Interpretation Comments SODIUM (test code = NA) 128 mEq/L 134-147 L POTASSIUM (test code = K) 3.7 mEq/L 3.4-5.0 N CHLORIDE (test code = CL) 94 mEq/L 100-108 L CARBON DIOXIDE (test code = CO2) 28 mEq/L 21-33 N ANION GAP (test code = GAP) 10 0-20 N GLUCOSE (test code = GLU) 103 mg/dL 70-110 N BLOOD UREA NITROGEN (test code = BUN) 32 mg/dL 7-18 H GLOMERULAR FILTRATION RATE (test code = GFR) 70-80 CREATININE (test code = CREAT) mg/dL 0.6-1.3 CALCIUM (test code = CA) 9.0 mg/dL 8.0-10.5 N [id number] 12:33:00* Test Item Value Reference Range Interpretation Comments GLUBED (test code = GLUBED) 104 MG/DL 70-110 N Performed by certified trimming operator at [facility] COMPREHENSIVE METABOLIC [id number] 07:55:00* Test Item Value Reference Range Interpretation Comments SODIUM (test code = NA) 139 mEq/L 134-147 N POTASSIUM (test code = K) 3.9 mEq/L 3.4-5.0 N CHLORIDE (test code = CL) 109 mEq/L 100-108 H CARBON DIOXIDE (test code = CO2) 23 mEq/L 21-33 N ANION GAP (test code = GAP) 11 0-20 N GLUCOSE (test code = GLU) 93 mg/dL 70-110 BLOOD UREA NITROGEN (test code = BUN) 21 mg/dL 7-18 H GLOMERULAR FILTRATION RATE (test code = GFR) 39.5 70-80 L Units of measure = ml/min/1.73 m2 CREATININE (test code = CREAT) 1.7 mg/dL 0.6-1.3 H TOTAL PROTEIN (test code = PROT) 6.0 g/dL 6.4-8.2 L ALBUMIN (test code = ALB) 2.10 g/dL 3.4-5.0 L CALCIUM (test code = CA) 8.7 mg/dL 8.0-10.5 N BILIRUBIN TOTAL (test code = BILT) 0.3 MG/DL <1.5 SGOT/AST (test code = AST) 13 IUnit/L 15-37 L SGPT/ALT (test code = ALT) 16 IUnit/L 15-65 N ALKALINE PHOSPHATASE TOTAL (test code = ALKP) 79 IUnit/L 20-125 N [id number] 07:55:00* Test Item Value Reference Range Interpretation Comments MAGNESIUM (test code = MAG) 1.80 mg/dL 1.8-2.4 N CBC W/AUTO [id number] 07:41:00* Test Item Value Reference Range Interpretation Comments WHITE BLOOD CELL (test code = WBC) 6.24 x10 3/uL 4.5-11.0 RED BLOOD CELL (test code = RBC) 3.01 x10 6/uL 4.00-5.60 L HEMOGLOBIN (test code = HGB) 9.0 g/dL 12.5-16.9 L HEMATOCRIT (test code = HCT) 28.6 % 37.5-50.7 L MEAN CELL VOLUME (test code = MCV) 95.0 fL 81.0-99.0 MEAN CELL HGB (test code = MCH) 29.9 pg 27.0-33.0 N MEAN CELL HGB CONCETRATION (test code = MCHC) 31.5 g/dL 33.0-37. 0 L RED CELL DISTRIBUTION WIDTH CV (test code = RDW) 15.0 % 11.5- 14.5 H RED CELL DISTRIBUTION WIDTH SD (test code = RDW-SD) 52.7 fL 37 .0-54.0 N PLATELET COUNT (test code = PLT) 431 x10 3/uL 150-400 H MEAN PLATELET VOLUME (test code = MPV) 9.3 fL 7.0-9.0 H NEUTROPHIL % (test code = NT%) 63.5 % 56.0-77.0 N IMMATURE GRANULOCYTE % (test code = IG%) 1.9 % 0.0-2.0 N LYMPHOCYTE % (test code = LY%) 17.0 % 14.0-32.0 N MONOCYTE % (test code = MO%) 10.9 % 4.8-9.0 H EOSINOPHIL % (test code = EO%) 6.1 % 0.3-3.7 H BASOPHIL % (test code = BA%) 0.6 % 0.0-2.0 N NUCLEATED RBC % (test code = NRBC%) 0.0 % 0-0 N NEUTROPHIL # (test code = NT#) 3.96 x10 3/uL 2.0-7.6 N IMMATURE GRANULOCYTE # (test code = IG#) 0.12 x10 3/uL 0.00-0.03 H LYMPHOCYTE # (test code = LY#) 1.06 x10 3/uL 1.0-3.8 N MONOCYTE # (test code = MO#) 0.68 x10 3/uL 0.1-0.8 N EOSINOPHIL # (test code = EO#) 0.38 x10 3/uL 0.0-0.2 H BASOPHIL # (test code = BA#) 0.04 x10 3/uL 0.0-0.2 N NUCLEATED RBC # (test code = NRBC#) 0.00 x10 3/uL 0.0-0.1 N MANUAL DIFF REQUIRED (test code = MDIFF) NO [id number] 05:35:00* Test Item Value Reference Range Interpretation Comments GLUBED (test code = GLUBED) 91 MG/DL 70-110 N Performed by certified trimming operator at [facility] [id number] 23:35:00* Test Item Value Reference Range Interpretation Comments GLUBED (test code = GLUBED) 91 MG/DL 70-110 N Performed by certified trimming operator at [facility] - XR KNEE 1 OR 2 V [id number] 18:14:00 FAX: Herson Brown [phone] [place]: St: ADM FAX: Nora Mendez [phone] FAX: Paradise Flowers NP [phone] Name: CARINA LUCIO [facility] : 1945 Age/S: 74/M [address] [place] [address] Unit #: [id number] Loc: [place] [address] Phys: Paradise Flowers GLUE SPRAYER Acct: [id number] Dis Date: Status: ADM IN ONE #: [phone] Exam Date: 12/27/20191808 FAX #: [phone] Reason: knee pain, swelling, redness EXAMS: CPT CODE: [id number] XR KNEE 1 OR 2 [place] [id number] Right knee 2 v iew HISTORY: Sepsis, knee pain and swelling No denzel risons. FINDINGS: There is no fracture or focal bony destruction. Right knee chondrocalcinosis noted. There is a small right knee effusion. Subcutaneous edema noted along the medial right knee soft tissues. IMPRESSION: 1. No acute osseous abnormality. 2. Small volume right knee effusion. 3. Subcutaneous edema along the medial right knee soft tissues. SL:01 at 1814 Reported and signed by: Kuldeep Paula M.D. CC: Herson Ashley; Nora Mohr MD; Paradise Flowers NP Technologist: RT Marisa(R) Trnscrd Date/Time/By: 12/27/2019 (1813) : By: Luz Elena [facility] Print D/T: S: 12/27/2019 (1816) PAGE 1 Signed Report [id number] 18:01:00* Test Item Value Reference Range Interpretation Comments GLUBED (test code = GLUBED) 92 MG/DL 70-110 N Performed by certified trimming operator at [facility] LACTIC ACID [id number] 16:53:00* Test Item Value Reference Range Interpretation Comments LACTIC ACID REPEAT (test code = LACTR) 1.4 mmol/l 0.4-1.9 N [id number] 12:49:00* Test Item Value Reference Range Interpretation Comments GLUBED (test code = GLUBED) 83 MG/DL 70-110 N Performed by certified trimming operator at [facility] TROPONIN-I [id number] 11:22:00* Test Item Value Reference Range Interpretation Comments TROPONIN-I RAPID (test code = TROPIRAP) 0.01 ng/mL 0.00-0.08 N Performed by certified trimming operator at [facility] Negative: <= 0.08 Positive: >= 0.09An elevated troponin value alone is not sufficient todiagnose a myocardial infarction. Rather, the patient sclinical presentation (history, physical exam) and ECGshould be used in conjunction with troponin in thediagnostic evaluation of suspected myocardial infarction. Aserial sampling protocol is recommended to facilitate the identification of temporal changes in troponin levels characteristic of [place]. BASIC METABOLIC [id number] 10:50:00* Test Item Value Reference Range Interpretation Comments SODIUM (test code = NA) 137 mEq/L 134-147 N POTASSIUM (test code = K) 3.8 mEq/L 3.4-5.0 N CHLORIDE (test code = CL) 103 mEq/L 100-108 N CARBON DIOXIDE (test code = CO2) 29 mEq/L 21-33 N ANION GAP (test code = GAP) 9 0-20 N GLUCOSE (test code = GLU) 128 mg/dL 70-110 H BLOOD UREA NITROGEN (test code = BUN) 20 mg/dL 7-18 H GLOMERULAR FILTRATION RATE (test code = GFR) 32.7 70-80 L Units of measure = ml/min/1.73 m2 CREATININE (test code = CREAT) 2.0 mg/dL 0.6-1.3 H CALCIUM (test code = CA) 9.2 mg/dL 8.0-10.5 N HEPATIC FUNCTION [id number] 10:50:00* Test Item Value Reference Range Interpretation Comments TOTAL PROTEIN (test code = PROT) 7.3 g/dL 6.4-8.2 N ALBUMIN (test code = ALB) 2.60 g/dL 3.4-5.0 L BILIRUBIN TOTAL (test code = BILT) 0.6 MG/DL <1.5 N BILIRUBIN DIRECT (test code = BILD) 0.10 MG/DL 0.0-0.30 BILIRUBIN INDIRECT (test code = BILIND) 0.50 MG/DL SGOT/AST (test code = AST) 16 IUnit/L 15-37 N SGPT/ALT (test code = ALT) 20 IUnit/L 15-65 N ALKALINE PHOSPHATASE TOTAL (test code = ALKP) 96 IUnit/L 20-125 N BASIC METABOLIC [id number] 10:46:00* Test Item Value Reference Range Interpretation Comments SODIUM (test code = NA) 137 mEq/L 134-147 N POTASSIUM (test code = K) 3.8 mEq/L 3.4-5.0 N CHLORIDE (test code = CL) 103 mEq/L 100-108 N CARBON DIOXIDE (test code = CO2) 29 mEq/L 21-33 N ANION GAP (test code = GAP) 9 0-20 N GLUCOSE (test code = GLU) 128 mg/dL 70-110 H BLOOD UREA NITROGEN (test code = BUN) 20 mg/dL 7-18 H GLOMERULAR FILTRATION RATE (test code = GFR) 70-80 CREATININE (test code = CREAT) mg/dL 0.6-1.3 CALCIUM (test code = CA) 9.2 mg/dL 8.0-10.5 N HEPATIC FUNCTION [id number] 10:46:00* Test Item Value Reference Range Interpretation Comments TOTAL PROTEIN (test code = PROT) g/dL 6.4-8.2 ALBUMIN (test code = ALB) 2.60 g/dL 3.4-5.0 L BILIRUBIN TOTAL (test code = BILT) MG/DL <1.5 BILIRUBIN DIRECT (test code = BILD) MG/DL 0.0-0.30 SGOT/AST (test code = AST) IUnit/L 15-37 SGPT/ALT (test code = ALT) IUnit/L 15-65 ALKALINE PHOSPHATASE TOTAL (test code = ALKP) IUnit/L 20-125 LACTIC [id number] 10:46:00* Test Item Value Reference Range Interpretation Comments LACTIC ACID (test code = LACT) 2.2 mmol/L 0.4-1.9 H UA RFLX MICR CULT IF [id number] 10:42:00* Test Item Value Reference Range Interpretation Comments UA COLOR (test code = COLU) NANCY YEL/STRAW A UA APPEARANCE (test code = APPU) CLEAR CLEAR UA GLUCOSE DIPSTICK (test code = DGLUU) 1+ NEGATIVE A UA BILIRUBIN DIPSTICK (test code = BILU) NEGATIVE NEGATIVE UA KETONE DIPSTICK (test code = KETU) TRACE NEGATIVE A UA SPECIFIC GRAVITY (test code = SGU) 1.027 1.005-1.030 N UA BLOOD DIPSTICK (test code = SHEREEN) NEGATIVE NEGATIVE UA PH DIPSTICK (test code = NICOLE) 5.0 5.0-7.0 N UA PROTEIN DIPSTICK (test code = PROU) 1+ NEGATIVE A UA UROBILINIOGEN DIPSTICK (test code = URO) 0.2 mg/dL 0.2-1.0 UA NITRITE DIPSTICK (test code = IZA) NEGATIVE NEGATIVE UA LEUKOCYTE ESTERASE DIPSTICK (test code = LEUU) 1+ NEGA TIVE A UA WBC (test code = WBCU) 10-20 WBC/HPF 0-3 A UA RBC (test code = RBCU) 4-10 RBC/HPF 0-3 UA WBC NO REFLEX (test code = WBCUCL) 10-20 WBC/HPF 0-3 A UA BACTERIA (test code = BACU) 1+ /HPF NONE SEEN A UA SQUAMOUS CELLS (test code = SQU) 0-5 /HPF NONE SEEN UA HYALINE CAST (test code = HYALU) 3-5 /LPF NONE SEEN UA MUCUS (test code = MUCU) 4+ /LPF NONE SEEN A Indication for culture: Sev. Sepsis-no other srcSpecimen Description: CLEAN CATCHCBC W/AUTO [id number] 10:35:00* Test Item Value Reference Range Interpretation Comments WHITE BLOOD CELL (test code = WBC) 12.24 x10 3/uL 4.5-11.0 H RED BLOOD CELL (test code = RBC) 2.72 x10 6/uL 4.00-5.60 L HEMOGLOBIN (test code = HGB) 8.1 g/dL 12.5-16.9 L HEMATOCRIT (test code = HCT) 26.7 % 37.5-50.7 L MEAN CELL VOLUME (test code = MCV) 98.2 fL 81.0-99.0 N MEAN CELL HGB (test code = MCH) 29.8 pg 27.0-33.0 N MEAN CELL HGB CONCETRATION (test code = MCHC) 30.3 g/dL 33.0-37. 0 L RED CELL DISTRIBUTION WIDTH CV (test code = RDW) 15.2 % 11.5- 14.5 H RED CELL DISTRIBUTION WIDTH SD (test code = RDW-SD) 54.6 fL 37 .0-54.0 H PLATELET COUNT (test code = PLT) 646 x10 3/uL 150-400 H MEAN PLATELET VOLUME (test code = MPV) 9.0 fL 7.0-9.0 N NEUTROPHIL % (test code = NT%) 65.5 % 56.0-77.0 N IMMATURE GRANULOCYTE % (test code = IG%) 3.2 % 0.0-2.0 H LYMPHOCYTE % (test code = LY%) 15.7 % 14.0-32.0 N MONOCYTE % (test code = MO%) 11.7 % 4.8-9.0 H EOSINOPHIL % (test code = EO%) 3.2 % 0.3-3.7 N BASOPHIL % (test code = BA%) 0.7 % 0.0-2.0 N NUCLEATED RBC % (test code = NRBC%) 0.0 % 0-0 N NEUTROPHIL # (test code = NT#) 8.03 x10 3/uL 2.0-7.6 H IMMATURE GRANULOCYTE # (test code = IG#) 0.39 x10 3/uL 0.00-0.03 H LYMPHOCYTE # (test code = LY#) 1.92 x10 3/uL 1.0-3.8 N MONOCYTE # (test code = MO#) 1.43 x10 3/uL 0.1-0.8 H EOSINOPHIL # (test code = EO#) 0.39 x10 3/uL 0.0-0.2 H BASOPHIL # (test code = BA#) 0.08 x10 3/uL 0.0-0.2 N NUCLEATED RBC # (test code = NRBC#) 0.00 x10 3/uL 0.0-0.1 N MANUAL DIFF REQUIRED (test code = MDIFF) NO PROTHROMBIN [id number] 10:31:00* Test Item Value Reference Range Interpretation Comments PROTHROMBIN TIME PATIENT (test code = PTP) 14.6 SECONDS 9.3-12.9 H INTERNATIONAL NORMAL RATIO (test code = INR) 1.3 0.8-1.2 H TARGET INR BY INDICATION Indication INR1. Prophylaxis of venous thrombosis 2.0 - 3.0 (orthopedic surgery), Prophylaxis of venous thrombosis (other than high-risk surgery), Treatment of Deep Vein Thrombosis/Pulmonary Embolism, Prevention of systemic embolism - Tissue heart valves, Acute Myocardial Infarction (to prevent systemic embolism), Valvular heart disease, Atrial Fibrillation, Bileaflet mechanical valve in aortic position.2. Mechanical prosthetic valves (high risk), 2.5 - 3.5 Presence of Lupus Anticoagulant or Antiphospholipid Antibodies, Prevention of systemic embolism - Acute Myocardial Infarction (to prevent recurrent infarct). - XR CHEST 1 [id number] 10:28:00 FAX: Tim Child MD [phone] [place]: St: PRE FAX: Nora Mendez [phone] Name: CARINA LUCIO [facility] : 1945 Age/S: 74/M [address] [place], [place] [address]vd Unit #: [id number] Loc: [place] [address] Phys: Tim Child MD Acct: [id number] Dis Date: Status: PRE ER PHONE #: [phone] Exam Date: 12/27/2019 1029 FAX #: [phone] Reason: Hypotension EXAMS: CPT CODE: [id number] XR CHEST 1 V [id number] Portable chest performed December 27, 2019 1009 hours. COMPARISON: December 09, 2019. CLINICAL HISTORY: Hypotension. DISCUSSION: Single portable chest is submitted. Stabilization hardware is seen over the lower cervical spine. Sternal wires are noted. Stable cardiomegaly is present. Lungs are clear. IMPRESSION: Stable cardiomegaly. at 1028 Reported and signed by: Anai Eric M.D. CC: Tim Child MD; Nora Mohr MD Technologist: Sharee Cardoso RT(R) Trnscrd Date/Time/By: 12/27/2019 (1028) : By: ChapincitoG Orig Print D/T: S: 12/27/2019 (1030) PAGE 1 Signed Report [id number] 12:13:00* Test Item Value Reference Range Interpretation Comments GLUBED (test code = GLUBED) 116 MG/DL 70-110 H Performed by certified trimming operator at [facility] [id number] 08:08:00* Test Item Value Reference Range Interpretation Comments GLUBED (test code = GLUBED) 137 MG/DL 70-110 H Performed by certified trimming operator at [facility] [id number] 05:20:00* Test Item Value Reference Range Interpretation Comments GLUBED (test code = GLUBED) 132 MG/DL 70-110 H Performed by certified trimming operator at [facility] [id number] 23:52:00* Test Item Value Reference Range Interpretation Comments GLUBED (test code = GLUBED) 137 MG/DL 70-110 H Performed by certified trimming operator at [facility] [id number] 16:44:00* Test Item Value Reference Range Interpretation Comments GLUBED (test code = GLUBED) 102 MG/DL 70-110 N Performed by certified trimming operator at [facility] [id number] 12:51:00* Test Item Value Reference Range Interpretation Comments GLUBED (test code = GLUBED) 150 MG/DL 70-110 H Performed by certified trimming operator at [facility] [id number] 11:33:00* Test Item Value Reference Range Interpretation Comments GLUBED (test code = GLUBED) 116 MG/DL 70-110 H Performed by certified trimming operator at [facility] [id number] 07:25:00* Test Item Value Reference Range Interpretation Comments GLUBED (test code = GLUBED) 102 MG/DL 70-110 N Performed by certified trimming operator at [facility] [id number] 05:41:00* Test Item Value Reference Range Interpretation Comments GLUBED (test code = GLUBED) 117 MG/DL 70-110 H Performed by certified trimming operator at [facility] [id number] 23:43:00* Test Item Value Reference Range Interpretation Comments GLUBED (test code = GLUBED) 130 MG/DL 70-110 H Performed by certified trimming operator at [facility] [id number] 15:48:00* Test Item Value Reference Range Interpretation Comments GLUBED (test code = GLUBED) 134 MG/DL 70-110 H Performed by certified trimming operator at [facility] CBC W/AUTO [id number] 08:52:00* Test Item Value Reference Range Interpretation Comments WHITE BLOOD CELL (test code = WBC) 9.81 x10 3/uL 4.5-11.0 N RED BLOOD CELL (test code = RBC) 3.36 x10 6/uL 4.00-5.60 L HEMOGLOBIN (test code = HGB) 10.2 g/dL 12.5-16.9 L HEMATOCRIT (test code = HCT) 33.3 % 37.5-50.7 L MEAN CELL VOLUME (test code = MCV) 99.1 fL 81.0-99.0 H MEAN CELL HGB (test code = MCH) 30.4 pg 27.0-33.0 N MEAN CELL HGB CONCETRATION (test code = MCHC) 30.6 g/dL 33.0-37. 0 L RED CELL DISTRIBUTION WIDTH CV (test code = RDW) 14.5 % 11.5- 14.5 N RED CELL DISTRIBUTION WIDTH SD (test code = RDW-SD) 52.4 fL 37 .0-54.0 N PLATELET COUNT (test code = PLT) 273 x10 3/uL 150-400 N MEAN PLATELET VOLUME (test code = MPV) 10.5 fL 7.0-9.0 H NEUTROPHIL % (test code = NT%) 70.8 % 56.0-77.0 N IMMATURE GRANULOCYTE % (test code = IG%) 2.1 % 0.0-2.0 H LYMPHOCYTE % (test code = LY%) 11.2 % 14.0-32.0 L MONOCYTE % (test code = MO%) 14.4 % 4.8-9.0 H EOSINOPHIL % (test code = EO%) 1.1 % 0.3-3.7 N BASOPHIL % (test code = BA%) 0.4 % 0.0-2.0 N NUCLEATED RBC % (test code = NRBC%) 0.0 % 0-0 N NEUTROPHIL # (test code = NT#) 6.94 x10 3/uL 2.0-7.6 N IMMATURE GRANULOCYTE # (test code = IG#) 0.21 x10 3/uL 0.00-0.03 H LYMPHOCYTE # (test code = LY#) 1.10 x10 3/uL 1.0-3.8 N MONOCYTE # (test code = MO#) 1.41 x10 3/uL 0.1-0.8 H EOSINOPHIL # (test code = EO#) 0.11 x10 3/uL 0.0-0.2 N BASOPHIL # (test code = BA#) 0.04 x10 3/uL 0.0-0.2 N NUCLEATED RBC # (test code = NRBC#) 0.00 x10 3/uL 0.0-0.1 N MANUAL DIFF REQUIRED (test code = MDIFF) NO BASIC METABOLIC [id number] 08:29:00* Test Item Value Reference Range Interpretation Comments SODIUM (test code = NA) 138 mEq/L 134-147 N POTASSIUM (test code = K) 3.7 mEq/L 3.4-5.0 N CHLORIDE (test code = CL) 100 mEq/L 100-108 N CARBON DIOXIDE (test code = CO2) 31 mEq/L 21-33 N ANION GAP (test code = GAP) 11 0-20 N GLUCOSE (test code = GLU) 157 mg/dL 70-110 H BLOOD UREA NITROGEN (test code = BUN) 15 mg/dL 7-18 N GLOMERULAR FILTRATION RATE (test code = GFR) 82.3 70-80 H Units of measure = ml/min/1.73 m2 CREATININE (test code = CREAT) 0.9 mg/dL 0.6-1.3 N CALCIUM (test code = CA) 9.2 mg/dL 8.0-10.5 N [id number] 05:05:00* Test Item Value Reference Range Interpretation Comments GLUBED (test code = GLUBED) 148 MG/DL 70-110 H Performed by certified trimming operator at [facility] [id number] 01:02:00* Test Item Value Reference Range Interpretation Comments GLUBED (test code = GLUBED) 137 MG/DL 70-110 H Performed by certified trimming operator at [facility] [id number] 21:17:00* Test Item Value Reference Range Interpretation Comments GLUBED (test code = GLUBED) 99 MG/DL 70-110 N Performed by certified trimming operator at [facility] [id number] 11:46:00* Test Item Value Reference Range Interpretation Comments GLUBED (test code = GLUBED) 90 MG/DL 70-110 N Performed by certified trimming operator at [facility] CBC W/AUTO [id number] 07:41:00* Test Item Value Reference Range Interpretation Comments WHITE BLOOD CELL (test code = WBC) 8.02 x10 3/uL 4.5-11.0 N RED BLOOD CELL (test code = RBC) 3.35 x10 6/uL 4.00-5.60 L HEMOGLOBIN (test code = HGB) 10.2 g/dL 12.5-16.9 L HEMATOCRIT (test code = HCT) 33.1 % 37.5-50.7 L MEAN CELL VOLUME (test code = MCV) 98.8 fL 81.0-99.0 N MEAN CELL HGB (test code = MCH) 30.4 pg 27.0-33.0 N MEAN CELL HGB CONCETRATION (test code = MCHC) 30.8 g/dL 33.0-37. 0 L RED CELL DISTRIBUTION WIDTH CV (test code = RDW) 14.4 % 11.5- 14.5 N RED CELL DISTRIBUTION WIDTH SD (test code = RDW-SD) 52.3 fL 37 .0-54.0 N PLATELET COUNT (test code = PLT) 254 x10 3/uL 150-400 N MEAN PLATELET VOLUME (test code = MPV) 10.4 fL 7.0-9.0 H NEUTROPHIL % (test code = NT%) 71.2 % 56.0-77.0 N IMMATURE GRANULOCYTE % (test code = IG%) 1.6 % 0.0-2.0 N LYMPHOCYTE % (test code = LY%) 11.6 % 14.0-32.0 L MONOCYTE % (test code = MO%) 13.5 % 4.8-9.0 H EOSINOPHIL % (test code = EO%) 1.6 % 0.3-3.7 N BASOPHIL % (test code = BA%) 0.5 % 0.0-2.0 N NUCLEATED RBC % (test code = NRBC%) 0.0 % 0-0 N NEUTROPHIL # (test code = NT#) 5.71 x10 3/uL 2.0-7.6 N IMMATURE GRANULOCYTE # (test code = IG#) 0.13 x10 3/uL 0.00-0.03 H LYMPHOCYTE # (test code = LY#) 0.93 x10 3/uL 1.0-3.8 L MONOCYTE # (test code = MO#) 1.08 x10 3/uL 0.1-0.8 H EOSINOPHIL # (test code = EO#) 0.13 x10 3/uL 0.0-0.2 N BASOPHIL # (test code = BA#) 0.04 x10 3/uL 0.0-0.2 N NUCLEATED RBC # (test code = NRBC#) 0.00 x10 3/uL 0.0-0.1 N MANUAL DIFF REQUIRED (test code = MDIFF) NO COMPREHENSIVE METABOLIC [id number] 07:32:00* Test Item Value Reference Range Interpretation Comments SODIUM (test code = NA) 139 mEq/L 134-147 N POTASSIUM (test code = K) 3.7 mEq/L 3.4-5.0 N CHLORIDE (test code = CL) 105 mEq/L 100-108 N CARBON DIOXIDE (test code = CO2) 30 mEq/L 21-33 N ANION GAP (test code = GAP) 8 0-20 N GLUCOSE (test code = GLU) 114 mg/dL 70-110 H BLOOD UREA NITROGEN (test code = BUN) 15 mg/dL 7-18 N GLOMERULAR FILTRATION RATE (test code = GFR) 94.2 70-80 H Units of measure = ml/min/1.73 m2 CREATININE (test code = CREAT) 0.8 mg/dL 0.6-1.3 N TOTAL PROTEIN (test code = PROT) 6.6 g/dL 6.4-8.2 N ALBUMIN (test code = ALB) 2.30 g/dL 3.4-5.0 L CALCIUM (test code = CA) 9.0 mg/dL 8.0-10.5 N BILIRUBIN TOTAL (test code = BILT) 0.4 MG/DL <1.5 N SGOT/AST (test code = AST) 17 IUnit/L 15-37 N SGPT/ALT (test code = ALT) 20 IUnit/L 15-65 N ALKALINE PHOSPHATASE TOTAL (test code = ALKP) 67 IUnit/L 20-125 N [id number] 07:32:00* Test Item Value Reference Range Interpretation Comments MAGNESIUM (test code = MAG) 2.20 mg/dL 1.8-2.4 N PROTHROMBIN [id number] 06:38:00* Test Item Value Reference Range Interpretation Comments PROTHROMBIN TIME PATIENT (test code = PTP) 12.4 SECONDS 9.3-12.9 N INTERNATIONAL NORMAL RATIO (test code = INR) 1.1 0.8-1.2 N TARGET INR BY INDICATION Indication INR1. Prophylaxis of venous thrombosis 2.0 - 3.0 (orthopedic surgery), Prophylaxis of venous thrombosis (other than high-risk surgery), Treatment of Deep Vein Thrombosis/Pulmonary Embolism, Prevention of systemic embolism - Tissue heart valves, Acute Myocardial Infarction (to prevent systemic embolism), Valvular heart disease, Atrial Fibrillation, Bileaflet mechanical valve in aortic position.2. Mechanical prosthetic valves (high risk), 2.5 - 3.5 Presence of Lupus Anticoagulant or Antiphospholipid Antibodies, Prevention of systemic embolism - Acute Myocardial Infarction (to prevent recurrent infarct). THROMBOPLASTIN TIME [id number] 06:38:00* Test Item Value Reference Range Interpretation Comments THROMBOPLASTIN TIME PARTIAL (test code = PTT) 31.3 Seconds 25.0-39. 5 N Therapeutic Range: 50.4 - 88.3 Seconds Effective 02/08/2019 [id number] 05:28:00* Test Item Value Reference Range Interpretation Comments GLUBED (test code = GLUBED) 119 MG/DL 70-110 H Performed by certified trimming operator at [facility] [id number] 23:52:00* Test Item Value Reference Range Interpretation Comments GLUBED (test code = GLUBED) 136 MG/DL 70-110 H Performed by certified trimming operator at [facility] [id number] 19:37:00* Test Item Value Reference Range Interpretation Comments GLUBED (test code = GLUBED) 131 MG/DL 70-110 H Performed by certified trimming operator at [facility] [id number] 11:37:00* Test Item Value Reference Range Interpretation Comments GLUBED (test code = GLUBED) 155 MG/DL 70-110 H Performed by certified trimming operator at [facility] BASIC METABOLIC [id number] 08:21:00* Test Item Value Reference Range Interpretation Comments SODIUM (test code = NA) 137 mEq/L 134-147 N POTASSIUM (test code = K) 4.1 mEq/L 3.4-5.0 N CHLORIDE (test code = CL) 105 mEq/L 100-108 N CARBON DIOXIDE (test code = CO2) 24 mEq/L 21-33 N ANION GAP (test code = GAP) 12 0-20 N GLUCOSE (test code = GLU) 113 mg/dL 70-110 H BLOOD UREA NITROGEN (test code = BUN) 14 mg/dL 7-18 N GLOMERULAR FILTRATION RATE (test code = GFR) 82.3 70-80 H Units of measure = ml/min/1.73 m2 CREATININE (test code = CREAT) 0.9 mg/dL 0.6-1.3 N CALCIUM (test code = CA) 8.7 mg/dL 8.0-10.5 N CBC W/AUTO [id number] 07:51:00* Test Item Value Reference Range Interpretation Comments WHITE BLOOD CELL (test code = WBC) 9.83 x10 3/uL 4.5-11.0 N RED BLOOD CELL (test code = RBC) 3.39 x10 6/uL 4.00-5.60 L HEMOGLOBIN (test code = HGB) 10.4 g/dL 12.5-16.9 L HEMATOCRIT (test code = HCT) 34.4 % 37.5-50.7 L MEAN CELL VOLUME (test code = MCV) 101.5 fL 81.0-99.0 H MEAN CELL HGB (test code = MCH) 30.7 pg 27.0-33.0 N MEAN CELL HGB CONCETRATION (test code = MCHC) 30.2 g/dL 33.0-37. 0 L RED CELL DISTRIBUTION WIDTH CV (test code = RDW) 14.5 % 11.5- 14.5 N RED CELL DISTRIBUTION WIDTH SD (test code = RDW-SD) 53.6 fL 37 .0-54.0 N PLATELET COUNT (test code = PLT) 229 x10 3/uL 150-400 N MEAN PLATELET VOLUME (test code = MPV) 10.6 fL 7.0-9.0 H NEUTROPHIL % (test code = NT%) 73.6 % 56.0-77.0 N IMMATURE GRANULOCYTE % (test code = IG%) 1.0 % 0.0-2.0 N LYMPHOCYTE % (test code = LY%) 10.2 % 14.0-32.0 L MONOCYTE % (test code = MO%) 13.6 % 4.8-9.0 H EOSINOPHIL % (test code = EO%) 1.2 % 0.3-3.7 N BASOPHIL % (test code = BA%) 0.4 % 0.0-2.0 N NUCLEATED RBC % (test code = NRBC%) 0.0 % 0-0 N NEUTROPHIL # (test code = NT#) 7.23 x10 3/uL 2.0-7.6 N IMMATURE GRANULOCYTE # (test code = IG#) 0.10 x10 3/uL 0.00-0.03 H LYMPHOCYTE # (test code = LY#) 1.00 x10 3/uL 1.0-3.8 N MONOCYTE # (test code = MO#) 1.34 x10 3/uL 0.1-0.8 H EOSINOPHIL # (test code = EO#) 0.12 x10 3/uL 0.0-0.2 N BASOPHIL # (test code = BA#) 0.04 x10 3/uL 0.0-0.2 N NUCLEATED RBC # (test code = NRBC#) 0.00 x10 3/uL 0.0-0.1 N MANUAL DIFF REQUIRED (test code = MDIFF) NO [id number] 05:59:00* Test Item Value Reference Range Interpretation Comments GLUBED (test code = GLUBED) 111 MG/DL 70-110 H Performed by certified trimming operator at [facility] [id number] 00:58:00* Test Item Value Reference Range Interpretation Comments GLUBED (test code = GLUBED) 173 MG/DL 70-110 H Performed by certified trimming operator at [facility] [id number] 18:39:00* Test Item Value Reference Range Interpretation Comments GLUBED (test code = GLUBED) 122 MG/DL 70-110 H Performed by certified [facility]ming operator [facility] [facility] [id number] 12:22:00* Test Item Value Reference Range Interpretation Comments GLUBED (test code = GLUBED) 153 MG/DL 70-110 H Performed by certified trimming operator at [facility] [id number] 08:03:00* Test Item Value Reference Range Interpretation Comments GLUBED (test code = GLUBED) 145 MG/DL 70-110 H Performed by certified trimming operator at [facility] [id number] 05:48:00* Test Item Value Reference Range Interpretation Comments GLUBED (test code = GLUBED) 130 MG/DL 70-110 H Performed by certified trimming operator at [facility] BASIC METABOLIC [id number] 04:03:00* Test Item Value Reference Range Interpretation Comments SODIUM (test code = NA) 139 mEq/L 134-147 N POTASSIUM (test code = K) 3.7 mEq/L 3.4-5.0 N CHLORIDE (test code = CL) 106 mEq/L 100-108 N CARBON DIOXIDE (test code = CO2) 27 mEq/L 21-33 N ANION GAP (test code = GAP) 10 0-20 N GLUCOSE (test code = GLU) 154 mg/dL 70-110 H BLOOD UREA NITROGEN (test code = BUN) 17 mg/dL 7-18 N GLOMERULAR FILTRATION RATE (test code = GFR) 82.3 70-80 H Units of measure = ml/min/1.73 m2 CREATININE (test code = CREAT) 0.9 mg/dL 0.6-1.3 N CALCIUM (test code = CA) 8.5 mg/dL 8.0-10.5 N CBC W/AUTO [id number] 03:47:00* Test Item Value Reference Range Interpretation Comments WHITE BLOOD CELL (test code = WBC) 10.19 x10 3/uL 4.5-11.0 N RED BLOOD CELL (test code = RBC) 3.29 x10 6/uL 4.00-5.60 L HEMOGLOBIN (test code = HGB) 10.1 g/dL 12.5-16.9 L HEMATOCRIT (test code = HCT) 32.8 % 37.5-50.7 L MEAN CELL VOLUME (test code = MCV) 99.7 fL 81.0-99.0 H MEAN CELL HGB (test code = MCH) 30.7 pg 27.0-33.0 N MEAN CELL HGB CONCETRATION (test code = MCHC) 30.8 g/dL 33.0-37. 0 L RED CELL DISTRIBUTION WIDTH CV (test code = RDW) 14.6 % 11.5- 14.5 H RED CELL DISTRIBUTION WIDTH SD (test code = RDW-SD) 53.6 fL 37 .0-54.0 N PLATELET COUNT (test code = PLT) 202 x10 3/uL 150-400 N MEAN PLATELET VOLUME (test code = MPV) 9.8 fL 7.0-9.0 H NEUTROPHIL % (test code = NT%) 72.4 % 56.0-77.0 N IMMATURE GRANULOCYTE % (test code = IG%) 1.9 % 0.0-2.0 N LYMPHOCYTE % (test code = LY%) 12.1 % 14.0-32.0 L MONOCYTE % (test code = MO%) 12.4 % 4.8-9.0 H EOSINOPHIL % (test code = EO%) 0.9 % 0.3-3.7 N BASOPHIL % (test code = BA%) 0.3 % 0.0-2.0 N NUCLEATED RBC % (test code = NRBC%) 0.0 % 0-0 N NEUTROPHIL # (test code = NT#) 7.39 x10 3/uL 2.0-7.6 N IMMATURE GRANULOCYTE # (test code = IG#) 0.19 x10 3/uL 0.00-0.03 H LYMPHOCYTE # (test code = LY#) 1.23 x10 3/uL 1.0-3.8 N MONOCYTE # (test code = MO#) 1.26 x10 3/uL 0.1-0.8 H EOSINOPHIL # (test code = EO#) 0.09 x10 3/uL 0.0-0.2 N BASOPHIL # (test code = BA#) 0.03 x10 3/uL 0.0-0.2 N NUCLEATED RBC # (test code = NRBC#) 0.00 x10 3/uL 0.0-0.1 N MANUAL DIFF REQUIRED (test code = MDIFF) NO [id number] 00:10:00* Test Item Value Reference Range Interpretation Comments GLUBED (test code = GLUBED) 142 MG/DL 70-110 H Performed by certified trimming operator at [facility] C REACTIVE [id number] 23:14:00* Test Item Value Reference Range Interpretation Comments C REACTIVE PROTEIN (test code = CRP) 255.0 MG/L 0.0-2.9 H LACTIC [id number] 23:04:00* Test Item Value Reference Range Interpretation Comments LACTIC ACID (test code = LACT) 1.0 mmol/L 0.4-1.9 N [id number] 21:09:00* Test Item Value Reference Range Interpretation Comments GLUBED (test code = GLUBED) 146 MG/DL 70-110 H Performed by certified trimming operator at [facility] - MRI L-SPINE W WO [id number] 20:39:00 FAX: Mike Hobson MD [phone] [place]: St: ADM FAX: Herson Brown [phone] FAX: Nora Mendez [phone] Name: CARINA LUCIO [facility] : 1945 Age/S: 74/M [address] [place] [address] Unit #: [id number] Loc: [address] [address] Phys: Mike Marsh MD Acct: [id number] Dis Date: Status: ADM IN ONE #: [phone] Exam Date: 12/10/20192014 FAX #: [phone] Reason: BACK PAIN, BACTEREMIA. R/O DISCITIS/OSTEOMYELIT EXAMS: CPT CODE: [id number] MR I L-SPINE W WO CON 43251 MRI LUMBAR SPI NE WITH AND WITHOUT CONTRAST INDICATION: BACK PAIN, BACTEREMIA. R/ O DISCITIS/OSTEOMYELITIS/EPIDURA. TECHNIQUE: Unenhanced and contra st-enhanced MRI of the lumbar spine was performed with axial and sagittal, T2 and T1 weighted sequences. 21 mL Dotarem gadolinium-based intravenous contrast was administered for this exam. COMPARISONS: CT ab domen and pelvis 05/30/2015 FINDINGS: There is no acu te lumbar spine fracture or dislocation. There is no evidence of osteomye litis. There is right facet joint synovitis at L2-L3 and L3-L4 with facet joint effusions and synovial enhancement. There is elevated T2 si gnal within the disks at L1-L2, L2-L3, L3-L4 and L5-S1 without convincing evidence of abnormal enhancement, suggesting degenerative edema in the dis cs. The spinal cord signal is normal. The conus terminates at the T12 level. The cauda equina nerve roots appear normal. There is no spinal canal mass or fluid collection. There are chronic surgical changes of L3-L5 laminectomy with scar in the dorsal soft tissues and at rophy of the extensor musculature. There is no organized fluid collection in the soft tissues. Discs/spinal Canal/neural foramina: T1 2-L1: There is a circumferential disc bulge with mild disc height loss. T here is posterior epidural fat hypertrophy. There is primary osteoarthrit ic facet hypertrophy and ligamentum flavum thickening. There is mild spin al canal stenosis. There is mild left and severe right neural foraminal s tenosis. L1-L2: There is a circumferential disc bulge with moderate disc h eight loss. There is posterior epidural fat hypertrophy. There is primar y osteoarthritic facet hypertrophy and ligamentum flavum thickening. There is severe spinal canal stenosis with the thecal sac narrowed 6 mm AP dimension. There is mild bilateral lateral recess stenosis. There is severe right and moderate left neural foraminal stenosis. L2-L3: There is a circumferential disc osteophyte bulge complex with severe disc height lo ss. There is primary osteoarthritic facet PAGE 1 Sig aki Report (CONTINUED) FAX: Mike Hobson MD [place]: St: ADM FAX: Herson Brown [phone] FAX: Nora Mendezjasmin [phone] Name: LUCIOCARINA [facility] : 1945 Age/S: 74/M [address] [place] [address] Blvd Unit #: [id number] Loc: G.[address] [place] [address] Phys: Mike Marsh MD Acct: [id number] Dis Date: Status: ADM IN PHONE #: [phone] Exam Date: 12/10/20192014 FAX #: [phone] Reason: BACK PAIN, BACTEREMIA. R/O DISCITIS/OSTEOMYELIT EXAMS: CPT CODE: [id number] MRI L-SPINE W WO CON 16147 <Continued> hypertrophy with ligamentum flavum thickening. There is 6 mm degenerative retrolisthesis of L2 on L3. There is moderate spinal canal stenosis. There is severe left and moderate right lateral recess stenosis. There is severe right and moderate left neural foraminal stenosis. L3-L4: There is a broad-based posterior and rightward disc ossified bulge complex with moderate disc height loss. There is laminectomy at this level. There is primary osteoarthritic facet hypertrophy. There is no spinal canal stenosis. There is moderate right lateral recess stenosis. There is moderate right neural foraminal stenosis. The left neural foramen is patent. L4-L5: There is a broad-based posterior disc osteophyte bulge complex with severe disc height loss. There is primary osteoarthritic facet hypertrophy and laminectomy at this level. There is no spinal canal stenosis. There is mild bilateral lateral recess stenosis. There is moderate left and mild right neural foraminal stenosis. L5-S1: There is a broad base posterior disc as defined bulge complex with severe disc height loss. There is primary osteoarthritic facet hypertrophy and laminectomy at this level. There is no spinal canal stenosis. There is mild right lateral recess stenosis. There is moderate bilateral neural foraminal stenosis. IMPRESSION: 1. There is no evidence of osteomyelitis. There is right facet joint synovitis at L2-L3 and L3-L4 with facet joint effusions and synovial enhancement. There is multilevel edema within the intervertebral discs without convincing evidence of enhancement suggesting that this is degenerative disc edema rather than discitis. 2. There are multilevel degenerative disc and spondylotic changes of the spine. There is mild spinal canal stenosis at T12-L1, severe spinal canal stenosis at L1-L2, and moderate spinal canal stenosis at L2 -L3. 3. Please refer to the findings for discussion of multilevel later al recess and neural foraminal stenoses on a level by level basis. at 2039 Reported and s igned by: Homar Suazo D.O. PAGE 2 Signed Report (CONTINUED) FAX: Mike Hobson MD [phone] [place]: St: ADM FAX: Herson Brown [phone] FAX: Nora Mendez [phone] Name: CARINA LUCIO [facility] : 1945 Age/S: 74/M [address] [place] [address] Unit #: [id number] Loc: G.[address] [place] [address] Phys: Mike Marsh MD Acct: [id number] Dis Date: Status: ADM IN PHONE #: [phone] Exam Date: 12/10/20192014 FAX #: [phone] Reason: BACK PAIN, BACTEREMIA. R/O DISCITIS/OSTEOMYELIT EXAMS: CPT CODE: [id number] MRI L-SPINE W WO CON [address] <Continued> CC: Mike Marsh MD; Herson Ashley; Nora Mohr MD Technologist: Mohini Gomez RT(MR)(CT) Trnscrd Date/Time/By: 12/10/2019 (2038) : By: [email or web address] Orig Print D/T: S: 12/10/2019 (2042) PAGE 3 Signed Report SED RATE [id number] 12:39:00* Test Item Value Reference Range Interpretation Comments SED RATE RADHAERGREN (test code = SEDW) 87 mm/hr 0-15 H [id number] 08:24:00* Test Item Value Reference Range Interpretation Comments GLUBED (test code = GLUBED) 137 MG/DL 70-110 H Performed by certified trimming operator at [facility] CBC W/AUTO [id number] 07:38:00* Test Item Value Reference Range Interpretation Comments WHITE BLOOD CELL (test code = WBC) 9.65 x10 3/uL 4.5-11.0 N RED BLOOD CELL (test code = RBC) 3.49 x10 6/uL 4.00-5.60 L HEMOGLOBIN (test code = HGB) 10.7 g/dL 12.5-16.9 L HEMATOCRIT (test code = HCT) 35.6 % 37.5-50.7 L MEAN CELL VOLUME (test code = MCV) 102.0 fL 81.0-99.0 H MEAN CELL HGB (test code = MCH) 30.7 pg 27.0-33.0 N MEAN CELL HGB CONCETRATION (test code = MCHC) 30.1 g/dL 33.0-37. 0 L RED CELL DISTRIBUTION WIDTH CV (test code = RDW) 14.8 % 11.5- 14.5 H RED CELL DISTRIBUTION WIDTH SD (test code = RDW-SD) 55.3 fL 37 .0-54.0 H PLATELET COUNT (test code = PLT) 221 x10 3/uL 150-400 N MEAN PLATELET VOLUME (test code = MPV) 10.3 fL 7.0-9.0 H NEUTROPHIL % (test code = NT%) 80.5 % 56.0-77.0 H IMMATURE GRANULOCYTE % (test code = IG%) 1.0 % 0.0-2.0 N LYMPHOCYTE % (test code = LY%) 8.5 % 14.0-32.0 L MONOCYTE % (test code = MO%) 9.2 % 4.8-9.0 H EOSINOPHIL % (test code = EO%) 0.6 % 0.3-3.7 N BASOPHIL % (test code = BA%) 0.2 % 0.0-2.0 N NUCLEATED RBC % (test code = NRBC%) 0.0 % 0-0 N NEUTROPHIL # (test code = NT#) 7.76 x10 3/uL 2.0-7.6 H IMMATURE GRANULOCYTE # (test code = IG#) 0.10 x10 3/uL 0.00-0.03 H LYMPHOCYTE # (test code = LY#) 0.82 x10 3/uL 1.0-3.8 L MONOCYTE # (test code = MO#) 0.89 x10 3/uL 0.1-0.8 H EOSINOPHIL # (test code = EO#) 0.06 x10 3/uL 0.0-0.2 N BASOPHIL # (test code = BA#) 0.02 x10 3/uL 0.0-0.2 N NUCLEATED RBC # (test code = NRBC#) 0.00 x10 3/uL 0.0-0.1 N MANUAL DIFF REQUIRED (test code = MDIFF) NO BASIC METABOLIC [id number] 07:33:00* Test Item Value Reference Range Interpretation Comments SODIUM (test code = NA) 139 mEq/L 134-147 N POTASSIUM (test code = K) 4.1 mEq/L 3.4-5.0 N CHLORIDE (test code = CL) 108 mEq/L 100-108 N CARBON DIOXIDE (test code = CO2) 24 mEq/L 21-33 N ANION GAP (test code = GAP) 11 0-20 N GLUCOSE (test code = GLU) 137 mg/dL 70-110 H BLOOD UREA NITROGEN (test code = BUN) 18 mg/dL 7-18 N GLOMERULAR FILTRATION RATE (test code = GFR) 82.3 70-80 H Units of measure = ml/min/1.73 m2 CREATININE (test code = CREAT) 0.9 mg/dL 0.6-1.3 N CALCIUM (test code = CA) 8.1 mg/dL 8.0-10.5 N [id number] 05:48:00* Test Item Value Reference Range Interpretation Comments GLUBED (test code = GLUBED) 140 MG/DL 70-110 H Performed by certified trimming operator at [facility] [id number] 17:23:00* Test Item Value Reference Range Interpretation Comments GLUBED (test code = GLUBED) 133 MG/DL 70-110 H Performed by certified trimming operator at [facility] livestock laborer [id number] 13:16:27Carina Cifuentese11/12/310834874746407/12/20 Indications:Abnormal stress test Procedures:Coronary angiogramLHC with LVgramSVG angiogramLIMA angiogramRCFA angiogram Closure:Mynx Access site:Right femoral artery Procedure details: Risks and benefits were discussed with the patient, informed consent was obtained.Patient was brought to the research laboratory specialist in a fasting state and prepped in a sterile manner. Patient was sedated with fentanyl and versed. The site was then infiltrated with 1% lidocaine. Right femoral artery was then accessed. A 6 Fr sheath was inserted over the wire into the right common femoral artery. A 6 Fr JL4 and 3DRC catheters were used to performed the coronary angiogram. Multiple projections were done. The catheter was then removed over the wire. A pigtail catheter was then position in the LV. LHC was performed as welll as LVgram. Pull back showed no gradient across the aortic valve. The catheter was then removed over the wire. Right common femoral artery was then performed, which showed no signficant calcification or stenosis. Sheath was then removed and hemostasis was achieved with Mynx closure device. Patient tolerate the procedure well. Findings:Right dominantOverall Diffuse diseaseLeft main: Patent; 50% distally. Subdivided into LAD and left circumflexLAD: Long vessel with 2 diagonals. Reaching all the way to apex and wrapped around the distal inferior wall. 100% just after the 1st septalLeft circumflex: with 2 OM.RCA: is the dominant vessel giving rise to PDA and PLB. Proximal long stent has about 30% ISR. A branch of PLB has 100% with bridging collateralsLIMA to LAD is patentSVG to OM1 is patent LV gram: estimated EF 45Wa ll motion: akinesis of the distal inferiorMitral regurgitation: NoneLVEDP: 12 mm HgAo Pressure: 128/72 mmHg Complication: There is no immediate complication EBL : 5 cc Impression: Severe small vessel diseasePatent grafts Plan: Medical thera py Total contrast used: 95 mlFlouro-time: 5.1 minutesAir Kerma: 987 mGy 12/07/19 [facility] MethodistLACTIC ACID [id number] 09:55:00* Test Item Value Reference Range Interpretation Comments LACTIC ACID REPEAT (test code = LACTR) 1.3 mmol/l 0.4-1.9 N PROCALCITONIN (PCT)2019-12-09 09:16:00* Test Item Value Reference Range Interpretation Comments PROCALCITONIN (PCT) (test code = PROCAL) 0.22 ng/mL 0.00-0.05 H PROCALCITONIN (PCT) NORMAL RANGE (ADULT): <0.05 NG/ML. * a concentration <0.5 ng/mL represents a low risk of severe sepsis and/or septic shock.* a concentration >2 ng/mL represents a high risk of severe sepsis and/or septic shock.Nevertheless, concentrations <0.5 ng/mL do not exclude aninfection, on account of localized infections (withoutsystemic signs) which can be associated with such lowconcentrations, or a systemic infection in its initialstages (< 6 hours). Furthermore, increased procalcitonincan occur without infection. PCT concentrations between 0.5and 2.0 ng/mL should be interpreted taking into account thepatient's history. It is recommended to retest PCT within6-24 hours if any concentrations <2 ng/mL are obtained. UA RFLX MICR CULT IF [id number] 09:00:00* Test Item Value Reference Range Interpretation Comments UA COLOR (test code = COLU) YELLOW YEL/STRAW UA APPEARANCE (test code = APPU) TURBID CLEAR A UA GLUCOSE DIPSTICK (test code = DGLUU) NEGATIVE NEGATIVE UA BILIRUBIN DIPSTICK (test code = BILU) NEGATIVE NEGATIVE UA KETONE DIPSTICK (test code = KETU) TRACE NEGATIVE A UA SPECIFIC GRAVITY (test code = SGU) 1.026 1.005-1.030 N UA BLOOD DIPSTICK (test code = SHEREEN) 3+ NEGATIVE A UA PH DIPSTICK (test code = NICOLE) 5.0 5.0-7.0 N UA PROTEIN DIPSTICK (test code = PROU) 2+ NEGATIVE A UA UROBILINIOGEN DIPSTICK (test code = URO) 0.2 mg/dL 0.2-1.0 UA NITRITE DIPSTICK (test code = IZA) NEGATIVE NEGATIVE UA LEUKOCYTE ESTERASE DIPSTICK (test code = LEUU) 2+ NEGA TIVE A UA WBC (test code = WBCU) 21-50 WBC/HPF 0-3 A UA RBC (test code = RBCU) >50 RBC/HPF 0-3 A UA WBC NO REFLEX (test code = WBCUCL) 21-50 WBC/HPF 0-3 A UA BACTERIA (test code = BACU) 4+ /HPF NONE SEEN A UA SQUAMOUS CELLS (test code = SQU) NONE SEEN /HPF NONE SEEN UA MUCUS (test code = MUCU) 4+ /LPF NONE SEEN A UA YEAST (BUDDING) (test code = YEASTUBD) 1+ /HPF NONE A Indication for culture: Sev. Sepsis-no other srcSpecimen Description: REYNA CATHBASIC METABOLIC [id number] 06:47:00* Test Item Value Reference Range Interpretation Comments SODIUM (test code = NA) 136 mEq/L 134-147 N POTASSIUM (test code = K) 4.0 mEq/L 3.4-5.0 N CHLORIDE (test code = CL) 101 mEq/L 100-108 N CARBON DIOXIDE (test code = CO2) 25 mEq/L 21-33 N ANION GAP (test code = GAP) 14 0-20 N GLUCOSE (test code = GLU) 202 mg/dL 70-110 H BLOOD UREA NITROGEN (test code = BUN) 22 mg/dL 7-18 H GLOMERULAR FILTRATION RATE (test code = GFR) 65.3 70-80 L Units of measure = ml/min/1.73 m2 CREATININE (test code = CREAT) 1.1 mg/dL 0.6-1.3 N CALCIUM (test code = CA) 9.4 mg/dL 8.0-10.5 N HEPATIC FUNCTION [id number] 06:47:00* Test Item Value Reference Range Interpretation Comments TOTAL PROTEIN (test code = PROT) 7.7 g/dL 6.4-8.2 N ALBUMIN (test code = ALB) 3.40 g/dL 3.4-5.0 N BILIRUBIN TOTAL (test code = BILT) 0.7 MG/DL <1.5 N BILIRUBIN DIRECT (test code = BILD) 0.20 MG/DL 0.0-0.30 N BILIRUBIN INDIRECT (test code = BILIND) 0.50 MG/DL SGOT/AST (test code = AST) 15 IUnit/L 15-37 N SGPT/ALT (test code = ALT) 23 IUnit/L 15-65 N ALKALINE PHOSPHATASE TOTAL (test code = ALKP) 92 IUnit/L 20-125 N BASIC METABOLIC [id number] 06:43:00* Test Item Value Reference Range Interpretation Comments SODIUM (test code = NA) 136 mEq/L 134-147 N POTASSIUM (test code = K) 4.0 mEq/L 3.4-5.0 N CHLORIDE (test code = CL) 101 mEq/L 100-108 N CARBON DIOXIDE (test code = CO2) 25 mEq/L 21-33 N ANION GAP (test code = GAP) 14 0-20 N GLUCOSE (test code = GLU) 202 mg/dL 70-110 H BLOOD UREA NITROGEN (test code = BUN) 22 mg/dL 7-18 H GLOMERULAR FILTRATION RATE (test code = GFR) 70-80 CREATININE (test code = CREAT) mg/dL 0.6-1.3 CALCIUM (test code = CA) 9.4 mg/dL 8.0-10.5 N HEPATIC FUNCTION [id number] 06:43:00* Test Item Value Reference Range Interpretation Comments TOTAL PROTEIN (test code = PROT) g/dL 6.4-8.2 ALBUMIN (test code = ALB) g/dL 3.4-5.0 BILIRUBIN TOTAL (test code = BILT) MG/DL <1.5 BILIRUBIN DIRECT (test code = BILD) MG/DL 0.0-0.30 SGOT/AST (test code = AST) IUnit/L 15-37 SGPT/ALT (test code = ALT) IUnit/L 15-65 ALKALINE PHOSPHATASE TOTAL (test code = ALKP) IUnit/L 20-125 LACTIC [id number] 06:40:00* Test Item Value Reference Range Interpretation Comments LACTIC ACID (test code = LACT) 3.2 mmol/L 0.4-1.9 H - XR CHEST 1 [id number] 06:25:00 FAX: Nora Mendez Priscillaeleazar [phone] [place]: St: REG FAX: Thiago Zimmer MD [phone] Name: KHADIJAHCARINA RAZO [facility] : 1945 Age/S: 74/M [address] [place] [address] Unit #: [id number] Loc: G.[address] [place] [address] Phys: Thiago Lux MD Acct: [id number] Dis Date: Status: REG ER PHONE #: [phone] Exam Date: 12/09/2019 0554 FAX #: [phone] Reason: SEPSIS EXAMS: CPT CODE: [id number] XR CHEST 1 V 83041 EXAM: CR, XR chest one view: 12/09/2019, 0540 hours HISTORY: SEPSIS TECHNIQUE: 1 view of the chest. COMPARISON: 11/06/2019 FINDINGS: Trachea is midline. Heart is stable in size. Midline sternotomy clips are noted. Pulmonary vascularity is unremarkable. There is no airspace consolidation, pleural effusion or pneumothorax. Plate and clip stabilizing the lower cervical spine. IMPRESSION: No acute cardiopulmonary disease seen. SL: [JSYED-H] at 0625 Reported and signed by: Gianni De Luna M.D. CC: Nora Mohr MD; Thiago Lux MD Technologist: Kadi Whitaker, RT(R) Trnscrd Date/Time/By: 12/09/2019 (06) : By: [email or web address] Orig Print D/T: S: 12/09/2019 (0618) PAGE 1 Signed Report TROPONIN-I [id number] 06:18:00* Test Item Value Reference Range Interpretation Comments TROPONIN-I RAPID (test code = TROPIRAP) 0.01 ng/mL 0.00-0.08 N Performed by certified trimming operator at [facility] Negative: <= 0.08 Positive: >= 0.09An elevated troponin value alone is not sufficient todiagnose a myocardial infarction. Rather, the patient sclinical presentation (history, physical exam) and ECGshould be used in conjunction with troponin in thediagnostic evaluation of suspected myocardial infarction. Aserial sampling protocol is recommended to facilitate the identification of temporal changes in troponin levels characteristic of [place]. CBC W/AUTO [id number] 06:18:00* Test Item Value Reference Range Interpretation Comments WHITE BLOOD CELL (test code = WBC) 14.75 x10 3/uL 4.5-11.0 H RED BLOOD CELL (test code = RBC) 4.18 x10 6/uL 4.00-5.60 N HEMOGLOBIN (test code = HGB) 12.9 g/dL 12.5-16.9 N HEMATOCRIT (test code = HCT) 41.1 % 37.5-50.7 N MEAN CELL VOLUME (test code = MCV) 98.3 fL 81.0-99.0 N MEAN CELL HGB (test code = MCH) 30.9 pg 27.0-33.0 N MEAN CELL HGB CONCETRATION (test code = MCHC) 31.4 g/dL 33.0-37. 0 L RED CELL DISTRIBUTION WIDTH CV (test code = RDW) 14.7 % 11.5- 14.5 H RED CELL DISTRIBUTION WIDTH SD (test code = RDW-SD) 52.8 fL 37 .0-54.0 N PLATELET COUNT (test code = PLT) 313 x10 3/uL 150-400 N MEAN PLATELET VOLUME (test code = MPV) 9.8 fL 7.0-9.0 H NEUTROPHIL % (test code = NT%) 75.6 % 56.0-77.0 N IMMATURE GRANULOCYTE % (test code = IG%) 3.4 % 0.0-2.0 H LYMPHOCYTE % (test code = LY%) 9.2 % 14.0-32.0 L MONOCYTE % (test code = MO%) 10.9 % 4.8-9.0 H EOSINOPHIL % (test code = EO%) 0.3 % 0.3-3.7 N BASOPHIL % (test code = BA%) 0.6 % 0.0-2.0 N NUCLEATED RBC % (test code = NRBC%) 0.0 % 0-0 N NEUTROPHIL # (test code = NT#) 11.16 x10 3/uL 2.0-7.6 H IMMATURE GRANULOCYTE # (test code = IG#) 0.50 x10 3/uL 0.00-0.03 H LYMPHOCYTE # (test code = LY#) 1.35 x10 3/uL 1.0-3.8 N MONOCYTE # (test code = MO#) 1.61 x10 3/uL 0.1-0.8 H EOSINOPHIL # (test code = EO#) 0.04 x10 3/uL 0.0-0.2 N BASOPHIL # (test code = BA#) 0.09 x10 3/uL 0.0-0.2 N NUCLEATED RBC # (test code = NRBC#) 0.00 x10 3/uL 0.0-0.1 N MANUAL DIFF REQUIRED (test code = MDIFF) NO POC [id number] 08:26:25* Test Item Value Reference Range Interpretation Comments POC glucose (test code = 25784-3) 159 mg/dL 65-99 H Power Plant Operator Name: Aryansalvador Hebert ID: [id number] Lab Interpretation (test code = 81454-3) [facility]normal [facility] [id number] 15:08:00Yellow *NA*(11/16/19 9:08 AM) [facility] [id number] 15:08:00Clear *NA*(11/16/19 9:08 AM) [facility] [id number] 15:08:00* Test Item Value Reference Range Interpretation Comments POC UA SG (test code = POC UA SG) 1.020 1 [facility] [id number] 15:08:00* Test Item Value Reference Range Interpretation Comments POC UA pH (test code = POC UA pH) 5.0 1 5.0-8.0 [facility] [id number] 15:08:00Small *ABN*(11/16/19 9:08 AM) [facility] [id number] 15:08:00Large *ABN*(11/16/19 9:08 AM) [facility] [id number] 15:08:000.2[facility] [id number] 15:08:00Negative *NA*(11/16/19 9:08 AM)[facility] [id number] 15:08:00Trace *ABN*(11/16/19 9:08 AM)[facility] 20:22:00* Test Item Value Reference Range Interpretation Comments GLUBED (test code = GLUBED) 203 MG/DL 70-110 H Performed by certified trimming operator at [facility] [id number] 16:21:00* Test Item Value Reference Range Interpretation Comments GLUBED (test code = GLUBED) 132 MG/DL 70-110 H Performed by certified trimming operator at [facility] [id number] 09:39:00* Test Item Value Reference Range Interpretation Comments GLUBED (test code = GLUBED) 103 MG/DL 70-110 N Performed by certified trimming operator at [facility] B-TYPE NATRIURETIC [id number] 06:20:00* Test Item Value Reference Range Interpretation Comments B-TYPE NATRIURETIC PEPTIDE (test code = BNP) 190.0 PG/ML 0-100 H COMPREHENSIVE METABOLIC [id number] 05:26:00* Test Item Value Reference Range Interpretation Comments SODIUM (test code = NA) 138 mEq/L 134-147 N POTASSIUM (test code = K) 3.8 mEq/L 3.4-5.0 N CHLORIDE (test code = CL) 104 mEq/L 100-108 N CARBON DIOXIDE (test code = CO2) 26 mEq/L 21-33 N ANION GAP (test code = GAP) 12 0-20 N GLUCOSE (test code = GLU) 140 mg/dL 70-110 H BLOOD UREA NITROGEN (test code = BUN) 22 mg/dL 7-18 H GLOMERULAR FILTRATION RATE (test code = GFR) 65.3 70-80 L Units of measure = ml/min/1.73 m2 CREATININE (test code = CREAT) 1.1 mg/dL 0.6-1.3 N TOTAL PROTEIN (test code = PROT) 6.6 g/dL 6.4-8.2 ALBUMIN (test code = ALB) 2.70 g/dL 3.4-5.0 L CALCIUM (test code = CA) 8.6 mg/dL 8.0-10.5 N BILIRUBIN TOTAL (test code = BILT) 0.3 MG/DL <1.5 SGOT/AST (test code = AST) 20 IUnit/L 15-37 N SGPT/ALT (test code = ALT) 23 IUnit/L 15-65 N ALKALINE PHOSPHATASE TOTAL (test code = ALKP) 62 IUnit/L 20-125 N [id number] 05:26:00* Test Item Value Reference Range Interpretation Comments MAGNESIUM (test code = MAG) 2.00 mg/dL 1.8-2.4 N T4 [id number] 05:26:00* Test Item Value Reference Range Interpretation Comments T4 FREE (test code = T4F) 1.0 ng/dL 0.77-1.61 N THYROID STIMULATING [id number] 05:26:00* Test Item Value Reference Range Interpretation Comments THYROID STIMULATING HORMONE (test code = TSH) 0.36 0.42-5.4 7 L Results in rasta- International Units/mL CBC W/AUTO [id number] 04:59:00* Test Item Value Reference Range Interpretation Comments WHITE BLOOD CELL (test code = WBC) 7.83 x10 3/uL 4.5-11.0 N RED BLOOD CELL (test code = RBC) 3.79 x10 6/uL 4.00-5.60 L HEMOGLOBIN (test code = HGB) 11.7 g/dL 12.5-16.9 L HEMATOCRIT (test code = HCT) 37.2 % 37.5-50.7 L MEAN CELL VOLUME (test code = MCV) 98.2 fL 81.0-99.0 N MEAN CELL HGB (test code = MCH) 30.9 pg 27.0-33.0 N MEAN CELL HGB CONCETRATION (test code = MCHC) 31.5 g/dL 33.0-37. 0 L RED CELL DISTRIBUTION WIDTH CV (test code = RDW) 13.2 % 11.5- 14.5 N RED CELL DISTRIBUTION WIDTH SD (test code = RDW-SD) 47.5 fL 37 .0-54.0 N PLATELET COUNT (test code = PLT) 213 x10 3/uL 150-400 N MEAN PLATELET VOLUME (test code = MPV) 10.2 fL 7.0-9.0 H NEUTROPHIL % (test code = NT%) 81.8 % 56.0-77.0 H IMMATURE GRANULOCYTE % (test code = IG%) 0.9 % 0.0-2.0 N LYMPHOCYTE % (test code = LY%) 10.2 % 14.0-32.0 L MONOCYTE % (test code = MO%) 6.8 % 4.8-9.0 N EOSINOPHIL % (test code = EO%) 0.0 % 0.3-3.7 L BASOPHIL % (test code = BA%) 0.3 % 0.0-2.0 N NUCLEATED RBC % (test code = NRBC%) 0.0 % 0-0 N NEUTROPHIL # (test code = NT#) 6.41 x10 3/uL 2.0-7.6 N IMMATURE GRANULOCYTE # (test code = IG#) 0.07 x10 3/uL 0.00-0.03 H LYMPHOCYTE # (test code = LY#) 0.80 x10 3/uL 1.0-3.8 L MONOCYTE # (test code = MO#) 0.53 x10 3/uL 0.1-0.8 N EOSINOPHIL # (test code = EO#) 0.00 x10 3/uL 0.0-0.2 N BASOPHIL # (test code = BA#) 0.02 x10 3/uL 0.0-0.2 N NUCLEATED RBC # (test code = NRBC#) 0.00 x10 3/uL 0.0-0.1 N MANUAL DIFF REQUIRED (test code = MDIFF) NO [id number] 23:22:00* Test Item Value Reference Range Interpretation Comments GLUBED (test code = GLUBED) 166 MG/DL 70-110 H Performed by certified trimming operator at [facility] UA RFLX MICR CULT IF [id number] 15:17:00* Test Item Value Reference Range Interpretation Comments UA COLOR (test code = COLU) YELLOW YEL/STRAW UA APPEARANCE (test code = APPU) CLOUDY CLEAR A UA GLUCOSE DIPSTICK (test code = DGLUU) NEGATIVE NEGATIVE UA BILIRUBIN DIPSTICK (test code = BILU) NEGATIVE NEGATIVE UA KETONE DIPSTICK (test code = KETU) NEGATIVE NEGATIVE UA SPECIFIC GRAVITY (test code = SGU) 1.011 1.005-1.030 N UA BLOOD DIPSTICK (test code = SHEREEN) 2+ NEGATIVE A UA PH DIPSTICK (test code = NICOLE) 5.0 5.0-7.0 N UA PROTEIN DIPSTICK (test code = PROU) NEGATIVE NEGATIVE UA UROBILINIOGEN DIPSTICK (test code = URO) 0.2 mg/dL 0.2-1.0 UA NITRITE DIPSTICK (test code = IZA) NEGATIVE NEGATIVE UA LEUKOCYTE ESTERASE DIPSTICK (test code = LEUU) 3+ NEGA TIVE A UA WBC (test code = WBCU) >50 WBC/HPF 0-3 A UA RBC (test code = RBCU) 4-10 RBC/HPF 0-3 UA WBC NO REFLEX (test code = WBCUCL) >50 WBC/HPF 0-3 A UA BACTERIA (test code = BACU) 4+ /HPF NONE SEEN A UA SQUAMOUS CELLS (test code = SQU) NONE SEEN /HPF NONE SEEN UA HYALINE CAST (test code = HYALU) 3-5 /LPF NONE SEEN UA MUCUS (test code = MUCU) TRACE /LPF NONE SEEN Indication for culture: Sev. Sepsis-no other srcSpecimen Description: REYNA HT CATHHEPATIC FUNCTION [id number] 13:31:00* Test Item Value Reference Range Interpretation Comments TOTAL PROTEIN (test code = PROT) 8.1 g/dL 6.4-8.2 N ALBUMIN (test code = ALB) 3.40 g/dL 3.4-5.0 N BILIRUBIN TOTAL (test code = BILT) 0.5 MG/DL <1.5 N BILIRUBIN DIRECT (test code = BILD) 0.20 MG/DL 0.0-0.30 BILIRUBIN INDIRECT (test code = BILIND) 0.30 MG/DL SGOT/AST (test code = AST) 24 IUnit/L 15-37 N SGPT/ALT (test code = ALT) 29 IUnit/L 15-65 N ALKALINE PHOSPHATASE TOTAL (test code = ALKP) 82 IUnit/L 20-125 N - XR CHEST 1 [id number] 13:31:00 FAX: Easton Blackman DO [place]: St: REG FAX: Nora Mendez [phone] Name: CARINA LUCIO [facility] : 1945 Age/S: 74/M [address] [place] [address] Unit #: [id number] Loc: [id number] [address] Phys: Easton Blackman DO Acct: [id number] Dis Date: Status: REG ER PHONE #: [phone] Exam Date: 11/06/2019 1329 FAX #: [phone] Reason: fever EXAMS: CPT CODE: [id number] XR CHEST 1 V 50002 PROCEDURE: CHEST SINGLE VIEW INDICATION: Fever COMPARISON: 10/14/2019 FINDINGS: The patient is rotated to the right. Midline sternotomy wires are present. No consolidation or pleural effusion is present. No vascular congestion is present. Heart size is normal. Aorta is within normal limits. IMPRESSION: No acute cardiopulmonary process. SL: [id number] at 1331 Reported and signed by: Ar Gilliam M.D. CC: Easton Mohr MD Technologist: Criss Herron RT(R) Trnscrd Date/Time/By: 11/06/2019 (1174) : By: [email or web address] Orig Print D/T: S: 11/06/2019 (2269) PAGE 1 Signed Report TROPONIN-I RAPID 2019-11-06 13:13:00* Test Item Value Reference Range Interpretation Comments TROPONIN-I RAPID (test code = TROPIRAP) 0.02 ng/mL 0.00-0.08 N Performed by certified trimming operator at [facility] Negative: <= 0.08 Positive: >= 0.09An elevated troponin value alone is not sufficient todiagnose a myocardial infarction. Rather, the patient sclinical presentation (history, physical exam) and ECGshould be used in conjunction with troponin in thediagnostic evaluation of suspected myocardial infarction. Aserial sampling protocol is recommended to facilitate the identification of temporal changes in troponin levels characteristic of [place]. CBC W/AUTO [id number] 13:12:00* Test Item Value Reference Range Interpretation Comments WHITE BLOOD CELL (test code = WBC) 10.34 x10 3/uL 4.5-11.0 N RED BLOOD CELL (test code = RBC) 4.45 x10 6/uL 4.00-5.60 N HEMOGLOBIN (test code = HGB) 13.9 g/dL 12.5-16.9 N HEMATOCRIT (test code = HCT) 43.5 % 37.5-50.7 N MEAN CELL VOLUME (test code = MCV) 97.8 fL 81.0-99.0 N MEAN CELL HGB (test code = MCH) 31.2 pg 27.0-33.0 N MEAN CELL HGB CONCETRATION (test code = MCHC) 32.0 g/dL 33.0-37. 0 L RED CELL DISTRIBUTION WIDTH CV (test code = RDW) 13.4 % 11.5- 14.5 N RED CELL DISTRIBUTION WIDTH SD (test code = RDW-SD) 48.5 fL 37 .0-54.0 N PLATELET COUNT (test code = PLT) 229 x10 3/uL 150-400 N MEAN PLATELET VOLUME (test code = MPV) 9.8 fL 7.0-9.0 H NEUTROPHIL % (test code = NT%) 78.1 % 56.0-77.0 H IMMATURE GRANULOCYTE % (test code = IG%) 1.0 % 0.0-2.0 N LYMPHOCYTE % (test code = LY%) 11.4 % 14.0-32.0 L MONOCYTE % (test code = MO%) 7.6 % 4.8-9.0 N EOSINOPHIL % (test code = EO%) 1.4 % 0.3-3.7 N BASOPHIL % (test code = BA%) 0.5 % 0.0-2.0 N NUCLEATED RBC % (test code = NRBC%) 0.0 % 0-0 N NEUTROPHIL # (test code = NT#) 8.08 x10 3/uL 2.0-7.6 H IMMATURE GRANULOCYTE # (test code = IG#) 0.10 x10 3/uL 0.00-0.03 H LYMPHOCYTE # (test code = LY#) 1.18 x10 3/uL 1.0-3.8 N MONOCYTE # (test code = MO#) 0.79 x10 3/uL 0.1-0.8 N EOSINOPHIL # (test code = EO#) 0.14 x10 3/uL 0.0-0.2 N BASOPHIL # (test code = BA#) 0.05 x10 3/uL 0.0-0.2 N NUCLEATED RBC # (test code = NRBC#) 0.00 x10 3/uL 0.0-0.1 N MANUAL DIFF REQUIRED (test code = MDIFF) NO CHEMISTRY 8 [id number] 13:07:00* Test Item Value Reference Range Interpretation Comments ISTAT-SODIUM (test code = NAP) MMOL/L 134-147 ISTAT-POTASSIUM (test code = KP) MMOL/L 3.4-5.0 ISTAT-CHLORIDE (test code = CLP) MMOL/L 100-108 ISTAT CARBON DIOXIDE (test code = ISTAT-CO2) mmol/L 21-33 N ISTAT CALCIUM IONIZED (test code = ISTAT-TREVOR) MG/DL 1.12-1.3 2 ISTAT-GLUCOSE (test code = GLUP) MG/DL 70-110 H ISTAT-BUN (test code = BUNP) MG/DL 7-18 H BEDSIDE CREATININE (test code = CREATBED) MG/DL 0.6-1.3 H GLOMERULAR FILTRATION RATE POC (test code = GFRBED) 53 ML/MIN CHEMISTRY 8 [id number] 13:07:00* Test Item Value Reference Range Interpretation Comments ISTAT-SODIUM (test code = NAP) 134 MMOL/L 134-147 N ISTAT-POTASSIUM (test code = KP) 4.7 MMOL/L 3.4-5.0 N ISTAT-CHLORIDE (test code = CLP) 97 MMOL/L 100-108 L Performed by certified trimming operator at [facility] ISTAT CARBON DIOXIDE (test code = ISTAT-CO2) 28.0 mmol/L 21-33 N ISTAT CALCIUM IONIZED (test code = ISTAT-TREVOR) 1.13 MG/DL 1.12-1.3 2 N ISTAT-GLUCOSE (test code = GLUP) 131 MG/DL 70-110 H ISTAT-BUN (test code = BUNP) 22 MG/DL 7-18 H BEDSIDE CREATININE (test code = CREATBED) 1.4 MG/DL 0.6-1.3 H GLOMERULAR FILTRATION RATE POC (test code = GFRBED) 53 ML/MIN LACTIC ACID [id number] 13:06:00* Test Item Value Reference Range Interpretation Comments LACTIC ACID POC (test code = LACTP) 1.7 MMOL/L 0.90-1.70 N Performed by certified trimming operator at [facility] [id number] 06:43:00* Test Item Value Reference Range Interpretation Comments GLUBED (test code = GLUBED) 135 MG/DL 70-110 H Performed by certified trimming operator at [facility] [id number] 21:09:00* Test Item Value Reference Range Interpretation Comments GLUBED (test code = GLUBED) 91 MG/DL 70-110 N Performed by certified trimming operator at [facility] [id number] 16:24:00* Test Item Value Reference Range Interpretation Comments GLUBED (test code = GLUBED) 190 MG/DL 70-110 H Performed by certified trimming operator at [facility] [id number] 11:45:00* Test Item Value Reference Range Interpretation Comments GLUBED (test code = GLUBED) 146 MG/DL 70-110 H Performed by certified trimming operator at [facility] [id number] 08:13:00* Test Item Value Reference Range Interpretation Comments GLUBED (test code = GLUBED) 277 MG/DL 70-110 H Performed by certified trimming operator at [facility] [id number] 06:42:00* Test Item Value Reference Range Interpretation Comments GLUBED (test code = GLUBED) 134 MG/DL 70-110 H Performed by certified trimming operator at [facility] [id number] 20:51:00* Test Item Value Reference Range Interpretation Comments GLUBED (test code = GLUBED) 124 MG/DL 70-110 H Performed by certified trimming operator at [facility] BASIC METABOLIC [id number] 20:31:00* Test Item Value Reference Range Interpretation Comments SODIUM (test code = NA) 137 mEq/L 134-147 N POTASSIUM (test code = K) 4.0 mEq/L 3.4-5.0 N CHLORIDE (test code = CL) 106 mEq/L 100-108 N CARBON DIOXIDE (test code = CO2) 25 mEq/L 21-33 N ANION GAP (test code = GAP) 10 0-20 N GLUCOSE (test code = GLU) 120 mg/dL 70-110 H BLOOD UREA NITROGEN (test code = BUN) 19 mg/dL 7-18 H GLOMERULAR FILTRATION RATE (test code = GFR) 72.8 70-80 N Units of measure = ml/min/1.73 m2 CREATININE (test code = CREAT) 1.0 mg/dL 0.6-1.3 N CALCIUM (test code = CA) 9.0 mg/dL 8.0-10.5 N [id number] 20:31:00* Test Item Value Reference Range Interpretation Comments MAGNESIUM (test code = MAG) 1.80 mg/dL 1.8-2.4 N [id number] 11:45:00* Test Item Value Reference Range Interpretation Comments GLUBED (test code = GLUBED) 141 MG/DL 70-110 H Performed by certified trimming operator at [facility] CBC W/AUTO [id number] 08:09:00* Test Item Value Reference Range Interpretation Comments WHITE BLOOD CELL (test code = WBC) 7.45 x10 3/uL 4.5-11.0 N RED BLOOD CELL (test code = RBC) 3.74 x10 6/uL 4.00-5.60 L HEMOGLOBIN (test code = HGB) 11.8 g/dL 12.5-16.9 L HEMATOCRIT (test code = HCT) 36.3 % 37.5-50.7 L MEAN CELL VOLUME (test code = MCV) 97.1 fL 81.0-99.0 N MEAN CELL HGB (test code = MCH) 31.6 pg 27.0-33.0 N MEAN CELL HGB CONCETRATION (test code = MCHC) 32.5 g/dL 33.0-37. 0 L RED CELL DISTRIBUTION WIDTH CV (test code = RDW) 13.2 % 11.5- 14.5 N RED CELL DISTRIBUTION WIDTH SD (test code = RDW-SD) 46.7 fL 37 .0-54.0 N PLATELET COUNT (test code = PLT) 241 x10 3/uL 150-400 N MEAN PLATELET VOLUME (test code = MPV) 9.9 fL 7.0-9.0 H NEUTROPHIL % (test code = NT%) 64.5 % 56.0-77.0 N IMMATURE GRANULOCYTE % (test code = IG%) 2.1 % 0.0-2.0 H LYMPHOCYTE % (test code = LY%) 18.0 % 14.0-32.0 N MONOCYTE % (test code = MO%) 10.6 % 4.8-9.0 H EOSINOPHIL % (test code = EO%) 3.9 % 0.3-3.7 H BASOPHIL % (test code = BA%) 0.9 % 0.0-2.0 N NUCLEATED RBC % (test code = NRBC%) 0.0 % 0-0 N NEUTROPHIL # (test code = NT#) 4.80 x10 3/uL 2.0-7.6 N IMMATURE GRANULOCYTE # (test code = IG#) 0.16 x10 3/uL 0.00-0.03 H LYMPHOCYTE # (test code = LY#) 1.34 x10 3/uL 1.0-3.8 N MONOCYTE # (test code = MO#) 0.79 x10 3/uL 0.1-0.8 N EOSINOPHIL # (test code = EO#) 0.29 x10 3/uL 0.0-0.2 H BASOPHIL # (test code = BA#) 0.07 x10 3/uL 0.0-0.2 N NUCLEATED RBC # (test code = NRBC#) 0.00 x10 3/uL 0.0-0.1 N MANUAL DIFF REQUIRED (test code = MDIFF) NO COMPREHENSIVE METABOLIC [id number] 07:57:00* Test Item Value Reference Range Interpretation Comments SODIUM (test code = NA) 137 mEq/L 134-147 N POTASSIUM (test code = K) 3.9 mEq/L 3.4-5.0 N CHLORIDE (test code = CL) 106 mEq/L 100-108 N CARBON DIOXIDE (test code = CO2) 24 mEq/L 21-33 N ANION GAP (test code = GAP) 11 0-20 N GLUCOSE (test code = GLU) 184 mg/dL 70-110 H BLOOD UREA NITROGEN (test code = BUN) 18 mg/dL 7-18 N GLOMERULAR FILTRATION RATE (test code = GFR) 82.3 70-80 H Units of measure = ml/min/1.73 m2 CREATININE (test code = CREAT) 0.9 mg/dL 0.6-1.3 N TOTAL PROTEIN (test code = PROT) 6.4 g/dL 6.4-8.2 N ALBUMIN (test code = ALB) 2.60 g/dL 3.4-5.0 L CALCIUM (test code = CA) 9.0 mg/dL 8.0-10.5 N BILIRUBIN TOTAL (test code = BILT) 0.2 MG/DL <1.5 SGOT/AST (test code = AST) 16 IUnit/L 15-37 N SGPT/ALT (test code = ALT) 22 IUnit/L 15-65 N ALKALINE PHOSPHATASE TOTAL (test code = ALKP) 70 IUnit/L 20-125 N [id number] 07:43:00* Test Item Value Reference Range Interpretation Comments GLUBED (test code = GLUBED) 148 MG/DL 70-110 H Performed by certified trimming operator at [facility] [id number] 22:10:00* Test Item Value Reference Range Interpretation Comments GLUBED (test code = GLUBED) 232 MG/DL 70-110 H Performed by certified trimming operator at [facility] [id number] 16:58:00* Test Item Value Reference Range Interpretation Comments GLUBED (test code = GLUBED) 128 MG/DL 70-110 H Performed by certified trimming operator at [facility] [id number] 11:24:00* Test Item Value Reference Range Interpretation Comments GLUBED (test code = GLUBED) 236 MG/DL 70-110 H Performed by certified trimming operator at [facility] [id number] 07:26:00* Test Item Value Reference Range Interpretation Comments GLUBED (test code = GLUBED) 189 MG/DL 70-110 H Performed by certified trimming operator at [facility] [id number] 21:41:00* Test Item Value Reference Range Interpretation Comments GLUBED (test code = GLUBED) 258 MG/DL 70-110 H Performed by certified trimming operator at [facility] [id number] 21:06:00* Test Item Value Reference Range Interpretation Comments GLUBED (test code = GLUBED) 141 MG/DL 70-110 H Performed by certified trimming operator at [facility] VITAMIN D 1,74-[id number] 15:08:00* Test Item Value Reference Range Interpretation Comments VITAMIN D 1,25-DIHYDROXY (test code = SEAU479) 13.1 pg/mL 19.9-79 .3 A Performed At: [address] [id number] Sanjai MD Ph:[phone] [id number] 11:16:00* Test Item Value Reference Range Interpretation Comments GLUBED (test code = GLUBED) 184 MG/DL 70-110 H Performed by certified trimming operator at [facility] [id number] 07:38:00* Test Item Value Reference Range Interpretation Comments ALBUMIN (test code = ALB) 2.80 g/dL 3.4-5.0 L [id number] 07:38:00* Test Item Value Reference Range Interpretation Comments PREALBUMIN (test code = PREALB) 19.3 mg/dL 16.0-40.0 N [id number] 06:37:00* Test Item Value Reference Range Interpretation Comments GLUBED (test code = GLUBED) 189 MG/DL 70-110 H Performed by certified trimming operator at [facility] AG PROSTATE [id number] 20:29:00* Test Item Value Reference Range Interpretation Comments AG PROSTATE SPECIFIC (test code = PSA) 1.5 ng/mL 0.05-4.0 AG PROSTATE [id number] 20:28:00* Test Item Value Reference Range Interpretation Comments AG PROSTATE SPECIFIC (test code = PSA) 1.5 ng/mL 0.05-4.0 N [id number] 20:07:00* Test Item Value Reference Range Interpretation Comments GLUBED (test code = GLUBED) 202 MG/DL 70-110 H Performed by certified trimming operator at [facility] [id number] 16:36:00* Test Item Value Reference Range Interpretation Comments GLUBED (test code = GLUBED) 174 MG/DL 70-110 H Performed by certified trimming operator at [facility] COMPREHENSIVE METABOLIC [id number] 16:22:00* Test Item Value Reference Range Interpretation Comments SODIUM (test code = NA) 135 mEq/L 134-147 N POTASSIUM (test code = K) 4.3 mEq/L 3.4-5.0 N CHLORIDE (test code = CL) 102 mEq/L 100-108 N CARBON DIOXIDE (test code = CO2) 28 mEq/L 21-33 N ANION GAP (test code = GAP) 9 0-20 N GLUCOSE (test code = GLU) 202 mg/dL 70-110 H BLOOD UREA NITROGEN (test code = BUN) 27 mg/dL 7-18 H GLOMERULAR FILTRATION RATE (test code = GFR) 53.8 70-80 L Units of measure = ml/min/1.73 m2 CREATININE (test code = CREAT) 1.3 mg/dL 0.6-1.3 N TOTAL PROTEIN (test code = PROT) 6.8 g/dL 6.4-8.2 N ALBUMIN (test code = ALB) 2.80 g/dL 3.4-5.0 L CALCIUM (test code = CA) 8.8 mg/dL 8.0-10.5 N BILIRUBIN TOTAL (test code = BILT) 0.4 MG/DL <1.5 SGOT/AST (test code = AST) 13 IUnit/L 15-37 L SGPT/ALT (test code = ALT) 23 IUnit/L 15-65 N ALKALINE PHOSPHATASE TOTAL (test code = ALKP) 74 IUnit/L 20-125 N [id number] 12:56:00* Test Item Value Reference Range Interpretation Comments GLUBED (test code = GLUBED) 211 MG/DL 70-110 H Performed by certified trimming operator at [facility] [id number] 12:53:00* Test Item Value Reference Range Interpretation Comments GLUBED (test code = GLUBED) 202 MG/DL 70-110 H Performed by certified trimming operator at [facility] [id number] 12:50:00* Test Item Value Reference Range Interpretation Comments GLUBED (test code = GLUBED) 203 MG/DL 70-110 H Performed by certified trimming operator at [facility]2019-12-29 11:19:00* Test Item Value Reference Range Interpretation Comments GLUBED (test code = GLUBED) 143 MG/DL 70-110 H Performed by certified trimming operator at [facility] [id number] 09:02:00* Test Item Value Reference Range Interpretation Comments GLUBED (test code = GLUBED) 211 MG/DL 70-110 H Performed by certified trimming operator at [facility] [id number] 06:18:00* Test Item Value Reference Range Interpretation Comments GLUBED (test code = GLUBED) 211 MG/DL 70-110 H Performed by certified trimming operator at [facility] [id number] 20:38:00* Test Item Value Reference Range Interpretation Comments GLUBED (test code = GLUBED) 203 MG/DL 70-110 H Performed by certified trimming operator at [facility] [id number] 17:15:00* Test Item Value Reference Range Interpretation Comments GLUBED (test code = GLUBED) 202 MG/DL 70-110 H Performed by certified trimming operator at [facility] [id number] 11:55:00* Test Item Value Reference Range Interpretation Comments GLUBED (test code = GLUBED) 141 MG/DL 70-110 H Performed by certified trimming operator at [facility] [id number] 11:04:00* Test Item Value Reference Range Interpretation Comments GLUBED (test code = GLUBED) 187 MG/DL 70-110 H Performed by certified trimming operator at [facility] CBC W/AUTO [id number] 08:09:00* Test Item Value Reference Range Interpretation Comments WHITE BLOOD CELL (test code = WBC) 9.75 x10 3/uL 4.5-11.0 RED BLOOD CELL (test code = RBC) 4.69 x10 6/uL 4.00-5.60 N HEMOGLOBIN (test code = HGB) 14.8 g/dL 12.5-16.9 N HEMATOCRIT (test code = HCT) 45.6 % 37.5-50.7 N MEAN CELL VOLUME (test code = MCV) 97.2 fL 81.0-99.0 N MEAN CELL HGB (test code = MCH) 31.6 pg 27.0-33.0 N MEAN CELL HGB CONCETRATION (test code = MCHC) 32.5 g/dL 33.0-37. 0 L RED CELL DISTRIBUTION WIDTH CV (test code = RDW) 13.5 % 11.5- 14.5 N RED CELL DISTRIBUTION WIDTH SD (test code = RDW-SD) 48.1 fL 37 .0-54.0 N PLATELET COUNT (test code = PLT) 223 x10 3/uL 150-400 N MEAN PLATELET VOLUME (test code = MPV) 10.2 fL 7.0-9.0 H NEUTROPHIL % (test code = NT%) 65.9 % 56.0-77.0 N IMMATURE GRANULOCYTE % (test code = IG%) 2.4 % 0.0-2.0 H LYMPHOCYTE % (test code = LY%) 16.2 % 14.0-32.0 N MONOCYTE % (test code = MO%) 12.5 % 4.8-9.0 H EOSINOPHIL % (test code = EO%) 2.2 % 0.3-3.7 N BASOPHIL % (test code = BA%) 0.8 % 0.0-2.0 N NUCLEATED RBC % (test code = NRBC%) 0.0 % 0-0 N NEUTROPHIL # (test code = NT#) 6.43 x10 3/uL 2.0-7.6 N IMMATURE GRANULOCYTE # (test code = IG#) 0.23 x10 3/uL 0.00-0.03 H LYMPHOCYTE # (test code = LY#) 1.58 x10 3/uL 1.0-3.8 N MONOCYTE # (test code = MO#) 1.22 x10 3/uL 0.1-0.8 H EOSINOPHIL # (test code = EO#) 0.21 x10 3/uL 0.0-0.2 H BASOPHIL # (test code = BA#) 0.08 x10 3/uL 0.0-0.2 N NUCLEATED RBC # (test code = NRBC#) 0.00 x10 3/uL 0.0-0.1 N MANUAL DIFF REQUIRED (test code = MDIFF) NO COMPREHENSIVE METABOLIC [id number] 08:00:00* Test Item Value Reference Range Interpretation Comments SODIUM (test code = NA) 135 mEq/L 134-147 N POTASSIUM (test code = K) 4.1 mEq/L 3.4-5.0 N CHLORIDE (test code = CL) 102 mEq/L 100-108 N CARBON DIOXIDE (test code = CO2) 26 mEq/L 21-33 N ANION GAP (test code = GAP) 11 0-20 N GLUCOSE (test code = GLU) 153 mg/dL 70-110 H BLOOD UREA NITROGEN (test code = BUN) 28 mg/dL 7-18 H GLOMERULAR FILTRATION RATE (test code = GFR) 65.3 70-80 L Units of measure = ml/min/1.73 m2 CREATININE (test code = CREAT) 1.1 mg/dL 0.6-1.3 N TOTAL PROTEIN (test code = PROT) 7.2 g/dL 6.4-8.2 N ALBUMIN (test code = ALB) 3.30 g/dL 3.4-5.0 L CALCIUM (test code = CA) 8.7 mg/dL 8.0-10.5 N BILIRUBIN TOTAL (test code = BILT) 0.7 MG/DL <1.5 N SGOT/AST (test code = AST) 20 IUnit/L 15-37 N SGPT/ALT (test code = ALT) 30 IUnit/L 15-65 N ALKALINE PHOSPHATASE TOTAL (test code = ALKP) 85 IUnit/L 20-125 N [id number] 08:00:00* Test Item Value Reference Range Interpretation Comments MAGNESIUM (test code = MAG) 2.00 mg/dL 1.8-2.4 N [id number] 06:19:00* Test Item Value Reference Range Interpretation Comments GLUBED (test code = GLUBED) 146 MG/DL 70-110 H Performed by certified trimming operator at [facility] [id number] 20:43:00* Test Item Value Reference Range Interpretation Comments GLUBED (test code = GLUBED) 154 MG/DL 70-110 H Performed by certified trimming operator at [facility] [id number] 11:23:00* Test Item Value Reference Range Interpretation Comments GLUBED (test code = GLUBED) 165 MG/DL 70-110 H Performed by certified trimming operator at [facility] UA RFLX MICR CULT IF [id number] 11:00:00* Test Item Value Reference Range Interpretation Comments UA COLOR (test code = COLU) YELLOW YEL/STRAW UA APPEARANCE (test code = APPU) CLEAR CLEAR UA GLUCOSE DIPSTICK (test code = DGLUU) NEGATIVE NEGATIVE UA BILIRUBIN DIPSTICK (test code = BILU) NEGATIVE NEGATIVE UA KETONE DIPSTICK (test code = KETU) NEGATIVE NEGATIVE UA SPECIFIC GRAVITY (test code = SGU) 1.018 1.005-1.030 N UA BLOOD DIPSTICK (test code = SHEREEN) NEGATIVE NEGATIVE UA PH DIPSTICK (test code = NICOLE) 5.0 5.0-7.0 N UA PROTEIN DIPSTICK (test code = PROU) NEGATIVE NEGATIVE UA UROBILINIOGEN DIPSTICK (test code = URO) 0.2 mg/dL 0.2-1.0 UA NITRITE DIPSTICK (test code = IZA) NEGATIVE NEGATIVE UA LEUKOCYTE ESTERASE DIPSTICK (test code = LEUU) NEGATIVE NEGA TIVE UA WBC (test code = WBCU) 0-3 WBC/HPF 0-3 UA RBC (test code = RBCU) 0-3 RBC/HPF 0-3 UA WBC NO REFLEX (test code = WBCUCL) 0-3 WBC/HPF 0-3 UA BACTERIA (test code = BACU) NONE SEEN /HPF NONE SEEN UA SQUAMOUS CELLS (test code = SQU) NONE SEEN /HPF NONE SEEN UA MUCUS (test code = MUCU) 1+ /LPF NONE SEEN Indication for culture: Dysuria/Frequency Suprapubic PainSpecimen Descri ption: CLEAN [id number] 07:46:00* Test Item Value Reference Range Interpretation Comments GLUBED (test code = GLUBED) 158 MG/DL 70-110 H Performed by certified trimming operator at [facility] VITAMIN [id number] 18:16:00* Test Item Value Reference Range Interpretation Comments VITAMIN B12 (test code = VITB12) 288 pg/mL 193-986 N THYROID STIMULATING [id number] 18:16:00* Test Item Value Reference Range Interpretation Comments THYROID STIMULATING HORMONE (test code = TSH) 1.33 0.42-5.4 7 N Results in rasta- International Units/mL HGBA1C%2019-10-20 17:14:00* Test Item Value Reference Range Interpretation Comments HGBA1C% (test code = HGBA1C%) 7.5 %A1C 4.8-6.0 H [id number] 16:16:00* Test Item Value Reference Range Interpretation Comments GLUBED (test code = GLUBED) 145 MG/DL 70-110 H Performed by certified trimming operator at [facility] [id number] 11:45:00* Test Item Value Reference Range Interpretation Comments GLUBED (test code = GLUBED) 193 MG/DL 70-110 H Performed by certified trimming operator at [facility] [id number] 21:07:00* Test Item Value Reference Range Interpretation Comments GLUBED (test code = GLUBED) 204 MG/DL 70-110 H Performed by certified trimming operator at [facility] [id number] 16:30:00* Test Item Value Reference Range Interpretation Comments GLUBED (test code = GLUBED) 183 MG/DL 70-110 H Performed by certified trimming operator at [facility] [id number] 11:30:00* Test Item Value Reference Range Interpretation Comments GLUBED (test code = GLUBED) 195 MG/DL 70-110 H Performed by certified trimming operator at [facility] [id number] 08:32:00* Test Item Value Reference Range Interpretation Comments GLUBED (test code = GLUBED) 215 MG/DL 70-110 H Performed by certified trimming operator at [facility] [id number] 06:51:00* Test Item Value Reference Range Interpretation Comments GLUBED (test code = GLUBED) 157 MG/DL 70-110 H Performed by certified trimming operator at [facility] [id number] 18:16:00* Test Item Value Reference Range Interpretation Comments GLUBED (test code = GLUBED) 118 MG/DL 70-110 H Performed by certified trimming operator at [facility] [id number] 11:26:00* Test Item Value Reference Range Interpretation Comments GLUBED (test code = GLUBED) 203 MG/DL 70-110 H Performed by certified trimming operator at [facility] [id number] 07:47:00* Test Item Value Reference Range Interpretation Comments GLUBED (test code = GLUBED) 143 MG/DL 70-110 H Performed by certified trimming operator at [facility]2019-12-23 19:34:00* Test Item Value Reference Range Interpretation Comments GLUBED (test code = GLUBED) 219 MG/DL 70-110 H Performed by certified trimming operator at [facility]2019-12-23 11:26:00* Test Item Value Reference Range Interpretation Comments GLUBED (test code = GLUBED) 276 MG/DL 70-110 H Performed by certified trimming operator at [facility]2019-12-23 08:15:00* Test Item Value Reference Range Interpretation Comments GLUBED (test code = GLUBED) 199 MG/DL 70-110 H Performed by certified trimming operator at [facility]2019-12-23 07:35:00* Test Item Value Reference Range Interpretation Comments GLUBED (test code = GLUBED) 174 MG/DL 70-110 H Performed by certified trimming operator at [facility] [id number] 16:42:00* Test Item Value Reference Range Interpretation Comments GLUBED (test code = GLUBED) 164 MG/DL 70-110 H Performed by certified trimming operator at [facility] [id number] 11:24:00* Test Item Value Reference Range Interpretation Comments GLUBED (test code = GLUBED) 289 MG/DL 70-110 H Performed by certified trimming operator at [facility] [id number] 08:12:00* Test Item Value Reference Range Interpretation Comments GLUBED (test code = GLUBED) 230 MG/DL 70-110 H Performed by certified trimming operator at [facility] [id number] 06:52:00* Test Item Value Reference Range Interpretation Comments GLUBED (test code = GLUBED) 148 MG/DL 70-110 H Performed by certified trimming operator at [facility] [id number] 12:34:00* Test Item Value Reference Range Interpretation Comments GLUBED (test code = GLUBED) 127 MG/DL 70-110 H Performed by certified trimming operator at [facility] [id number] 08:53:00* Test Item Value Reference Range Interpretation Comments GLUBED (test code = GLUBED) 159 MG/DL 70-110 H Performed by certified trimming operator at [facility] CBC W/AUTO [id number] 08:18:00* Test Item Value Reference Range Interpretation Comments WHITE BLOOD CELL (test code = WBC) 6.70 x10 3/uL 4.5-11.0 N RED BLOOD CELL (test code = RBC) 3.61 x10 6/uL 4.00-5.60 L HEMOGLOBIN (test code = HGB) 11.5 g/dL 12.5-16.9 L HEMATOCRIT (test code = HCT) 36.2 % 37.5-50.7 L MEAN CELL VOLUME (test code = MCV) 100.3 fL 81.0-99.0 H MEAN CELL HGB (test code = MCH) 31.9 pg 27.0-33.0 N MEAN CELL HGB CONCETRATION (test code = MCHC) 31.8 g/dL 33.0-37. 0 L RED CELL DISTRIBUTION WIDTH CV (test code = RDW) 13.6 % 11.5- 14.5 N RED CELL DISTRIBUTION WIDTH SD (test code = RDW-SD) 49.8 fL 37 .0-54.0 N PLATELET COUNT (test code = PLT) 184 x10 3/uL 150-400 N MEAN PLATELET VOLUME (test code = MPV) 10.4 fL 7.0-9.0 H NEUTROPHIL % (test code = NT%) 66.7 % 56.0-77.0 N IMMATURE GRANULOCYTE % (test code = IG%) 1.2 % 0.0-2.0 N LYMPHOCYTE % (test code = LY%) 20.7 % 14.0-32.0 N MONOCYTE % (test code = MO%) 8.4 % 4.8-9.0 N EOSINOPHIL % (test code = EO%) 2.1 % 0.3-3.7 N BASOPHIL % (test code = BA%) 0.9 % 0.0-2.0 N NUCLEATED RBC % (test code = NRBC%) 0.0 % 0-0 N NEUTROPHIL # (test code = NT#) 4.47 x10 3/uL 2.0-7.6 N IMMATURE GRANULOCYTE # (test code = IG#) 0.08 x10 3/uL 0.00-0.03 H LYMPHOCYTE # (test code = LY#) 1.39 x10 3/uL 1.0-3.8 N MONOCYTE # (test code = MO#) 0.56 x10 3/uL 0.1-0.8 N EOSINOPHIL # (test code = EO#) 0.14 x10 3/uL 0.0-0.2 N BASOPHIL # (test code = BA#) 0.06 x10 3/uL 0.0-0.2 N NUCLEATED RBC # (test code = NRBC#) 0.00 x10 3/uL 0.0-0.1 N MANUAL DIFF REQUIRED (test code = MDIFF) NO COMPREHENSIVE METABOLIC [id number] 08:17:00* Test Item Value Reference Range Interpretation Comments SODIUM (test code = NA) 139 mEq/L 134-147 N POTASSIUM (test code = K) 3.8 mEq/L 3.4-5.0 N CHLORIDE (test code = CL) 106 mEq/L 100-108 N CARBON DIOXIDE (test code = CO2) 24 mEq/L 21-33 N ANION GAP (test code = GAP) 13 0-20 N GLUCOSE (test code = GLU) 172 mg/dL 70-110 H BLOOD UREA NITROGEN (test code = BUN) 14 mg/dL 7-18 N GLOMERULAR FILTRATION RATE (test code = GFR) 65.3 70-80 L Units of measure = ml/min/1.73 m2 CREATININE (test code = CREAT) 1.1 mg/dL 0.6-1.3 N TOTAL PROTEIN (test code = PROT) 5.9 g/dL 6.4-8.2 L ALBUMIN (test code = ALB) 2.90 g/dL 3.4-5.0 L CALCIUM (test code = CA) 8.4 mg/dL 8.0-10.5 N BILIRUBIN TOTAL (test code = BILT) 0.3 MG/DL <1.5 N SGOT/AST (test code = AST) 23 IUnit/L 15-37 N SGPT/ALT (test code = ALT) 25 IUnit/L 15-65 N ALKALINE PHOSPHATASE TOTAL (test code = ALKP) 67 IUnit/L 20-125 N [id number] 08:17:00* Test Item Value Reference Range Interpretation Comments MAGNESIUM (test code = MAG) 2.00 mg/dL 1.8-2.4 N [id number] 21:08:00* Test Item Value Reference Range Interpretation Comments GLUBED (test code = GLUBED) 130 MG/DL 70-110 H Performed by certified trimming operator at [facility] [id number] 20:13:00* Test Item Value Reference Range Interpretation Comments TROPONIN-I (test code = TROPI) < 0.015 ng/mL 0.000-0.045 N Negative: <= 0.045 Positive: >= 0.046 Correlation with serial results, other cardiac markers andclinical findings is necessary to determine the clinicalsignificance of this result. Results using different methodologies should not be comparedto one another as quantitative results may vary by method. COMMENTS: 3 troponins total (including troponin done in ED)- MRA HEAD W/O [id number] 19:41:00 FAX: Herson Brown [phone] [place]: St: ADM FAX: Nelly Alan [phone] FAX: Nora Mendez [phone] Name: CARINA LUCIO [facility] : 1945 Age/S: 74/M [address] [place], [place] [address]vd Unit #: [id number] Loc: G.5512 [place] [address] Phys: Nelly Alfonso MD Acct: [id number] Dis Date: Status: ADM IN PHONE #: [phone] Exam Date: 10/14/2019 1855 FAX #: [phone] Reason: vertigo EXAMS: CPT CODE: [id number] MR A HEAD W/O CONTRAST 32354 MRI BRAIN WITH OUT CONTRAST, MR ANGIOGRAM HEAD, MR ANGIOGRAM NECK INDICATION: ve rtigo. TECHNIQUE: Multiple MR sequences of the brain were perform ed without contrast. MR angiography of the head was performed with bqxc-ro-fpnvdv imaging and three-dimensional subtracted reconstructions. MR angiography of the neck was performed with three-dimensional subtracted reconstructions. COMPARISONS: CT head 10/14/2019 FI NDINGS: MRI BRAIN: The paranasal sinuses are clear a s visualized. There is a trace right mastoid air cell effusion. The vascular flow voids are preserved. There is an i ncidental dilan cisterna magna. The cerebral ventricles are normal caliber. There is moderate generalized brain parenchymal volume loss. There is no restricted water diffusion. There is a mild burden of chronic small vess el ischemic lesions in the white matter. There is no cerebral mass effect , midline shift, intracranial hemorrhage or acute cerebral edema. MRA HEAD: The vertebral arteries reveal no aneurysm, disse ction or high-grade luminal stenosis. The left vertebral artery is domin ant. The right vertebral artery is developmentally hypoplastic and appear s to terminate in the posterior inferior cerebellar artery with no c ontribution to the basilar artery. The basilar artery reveals no a neurysm, dissection, high-grade stenosis or occlusion. The p osterior cerebral arteries reveal no aneurysm, dissection or high-grade lakisha danita stenosis. There is a patent left posterior communicating cerebral a rtery. PAGE 1 Signed Report (DENNIS NUJOSE) FAX: Herson Brown [phone] [place]: St: [facility] FAX : Nelly Alan [phone] FAX: Nora Mendez [phone] Name: CARINA LUCIO [facility] : 1945 Age/S: 74/M [address] [place] [address] Blvd Unit #: [id number] Loc: G.5512 [place] [address] Phys: Nelly Alfonso MD Acct: [id number] Dis Date: Status: ADM IN PHONE #: [phone] Exam Date: 10/14/2019 1855 FAX #: [phone] Reason: vertigo EXAMS: CPT CODE: [id number] MRA HEAD W/O CONTRAST 46297 <Continued> The internal carotid arteries reveal no aneurysm, dissection or high-grade luminal stenosis. The middle cerebral arteries reveal no aneurysm, dissection or high-grade luminal stenosis. The anterior cerebral arteries reveal no aneurysm, dissection or high- grade luminal stenosis. MRA NECK: There is suscep tibility artifact in the region of the thoracic spine suggesting hardware. The aortic arch visualization is limited due to artifact but appe ars normal as seen. There is an incidental anatomic variation of the aortic arch with a common origin of the brachiocephalic artery and the le ft common carotid artery. There is limited visualization of the gr eat vessel origins from the arch due to artifact. There is limited visual ization of the subclavian artery proximal segments and the brachiocephalic artery proximal segment due to artifact. The left vertebral artery origin is obscured due to artifact. The remainder of this vessel is widely patent. The left vertebral artery is dominant. The right verte bral artery is patent and developmentally hypoplastic. The right vertebra l artery origin is obscured due to artifact. The bilateral p roximal common carotid arteries are obscured due to artifact. There is no occlusion, dissection or aneurysm detected. The bilateral internal carotid artery evaluation is mildly limited due to artifact. These vess els reveal no stenosis, aneurysm, dissection or occlusion. IMPRESSION: MRI BRAIN: PAGE 2 Signed Report (CONTINUED) FAX: Herson Brown [phone] [place]: St: ADM FAX: Nelly Alan FAX: Nora Mendez [phone] Name: CARINA LUCIO [facility] [place] : 1945 Age/S: 74/M [address] [place] [address] Blvd Unit #: [id number] Loc: G. 55[address] [place] [address] Phys: Nelly Alfonso MD Acct: [id number] Dis Date: Status: ADM IN PHONE #: [phone] Exam Date: 10/14/2019 185 FAX #: [phone] Reason: vertigo EXAMS: CPT CODE: [id number] MRA HEAD W/O CONTRAST 39053 <Continued> 1. There is no acute intracranial process. There is no acute ischemia, cerebral edema or intracranial hemorrhage. 2. There is a mild burden of chronic small vessel ischemic lesions in the white matter. 3. There is a trace right mastoid air cell effusion. MRA HEAD: There is no arterial occlusion, high-grade stenosis, dissection, aneurysm, or arterial venous malformation. MRA NECK: 1. The evaluation is moderately limited due to artifact. 2. There is no arterial occlusion, high-grade stenosis, dissection, or aneurysm detected. CAROTID STENOSIS REFERENCE USING NASCET CRITERIA: % ICA stenosis = (1-narrowest ICA diameter/diameter of distal cervical ICA) x 100 -Mild: <50% stenosis -Moderate: 50-69% stenosis -Severe: 70-94% stenosis -Near occlusion: 95-99% stenosis -Occluded: 100% stenosis at 194 Reported and signed by: Homar Suazo D.O. CC: Herson Ashley; Nelly Lynn MD; Nora Mohr MD Technologist: RT Corin(R)(CT) Trnscrd Date/Time/By: 10/14/2019 (1940) : By: [email or web address] Orig Print D/T: S: 10/14/2019 (1943) PAGE 3 Signed Report - MRA NECK W/O [id number] 19:41:00 FAX: Herson Brown [phone] [place]: St: ADM FAX: Nelly Alan [phone] FAX: Dorian Nora Mohr [phone] Name: CARINA LUCIO [facility] : 1945 Age/S: 74/M [address] [place] [address] Unit #: [id number] Loc: G.5512 [place] [address] Phys: Nelly Alfonso MD Acct: [id number] Dis Date: Status: ADM IN PHONE #: [phone] Exam Date: 10/14/2019 1855 FAX #: [phone] Reason: vertigo EXAMS: CPT CODE: [id number] MR A NECK W/O CONT 77479 MRI BRAIN WITH OUT CONTRAST, MR ANGIOGRAM HEAD, MR ANGIOGRAM NECK INDICATION: ve rtigo. TECHNIQUE: Multiple MR sequences of the brain were perform ed without contrast. MR angiography of the head was performed with [id number]-hl-rcallb imaging and three-dimensional subtracted reconstructions. MR angiography of the neck was performed with three-dimensional subtracted reconstructions. COMPARISONS: CT head 10/14/2019 FI NDINGS: MRI BRAIN: The paranasal sinuses are clear a s visualized. There is a trace right mastoid air cell effusion. The vascular flow voids are preserved. There is an i ncidental dilan cisterna magna. The cerebral ventricles are normal caliber. There is moderate generalized brain parenchymal volume loss. There is no restricted water diffusion. There is a mild burden of chronic small vess el ischemic lesions in the white matter. There is no cerebral mass effect , midline shift, intracranial hemorrhage or acute cerebral edema. MRA HEAD: The vertebral arteries reveal no aneurysm, disse ction or high-grade luminal stenosis. The left vertebral artery is domin ant. The right vertebral artery is developmentally hypoplastic and appear s to terminate in the posterior inferior cerebellar artery with no c ontribution to the basilar artery. The basilar artery reveals no a neurysm, dissection, high-grade stenosis or occlusion. The p osterior cerebral arteries reveal no aneurysm, dissection or high-grade lakisha danita stenosis. There is a patent left posterior communicating cerebral a rtery. PAGE 1 Signed Report (DENNIS NUJOSE) FAX: Herson Brown [phone] [place]: St: ADM FAX : Nelly Alan [phone] FAX: Dorian Nora Mohrjasmin [phone] Name: CARINA LUCIO [facility] : 1945 Age/S: 74/M [address] [place] [address] Blvd Unit #: [id number] Loc: G.[address] [place] [address] Phys: Nelly Alfonso MD Acct: [id number] Dis Date: Status: ADM IN PHONE #: [phone] Exam Date: 10/14/2019 1855 FAX #: [phone] Reason: vertigo EXAMS: CPT CODE: [id number] MRA NECK W/O CONT 27337 <Continued> The internal carotid arteries reveal no aneurysm, dissection or high-grade luminal stenosis. The middle cerebral arteries reveal no aneurysm, dissection or high-grade luminal stenosis. The anterior cerebral arteries reveal no aneurysm, dissection or high- grade luminal stenosis. MRA NECK: There is suscep tibility artifact in the region of the thoracic spine suggesting hardware. The aortic arch visualization is limited due to artifact but appe ars normal as seen. There is an incidental anatomic variation of the aortic arch with a common origin of the brachiocephalic artery and the le ft common carotid artery. There is limited visualization of the gr eat vessel origins from the arch due to artifact. There is limited visual ization of the subclavian artery proximal segments and the brachiocephalic artery proximal segment due to artifact. The left vertebral artery origin is obscured due to artifact. The remainder of this vessel is widely patent. The left vertebral artery is dominant. The right verte bral artery is patent and developmentally hypoplastic. The right vertebra l artery origin is obscured due to artifact. The bilateral p roximal common carotid arteries are obscured due to artifact. There is no occlusion, dissection or aneurysm detected. The bilateral internal carotid artery evaluation is mildly limited due to artifact. These vess els reveal no stenosis, aneurysm, dissection or occlusion. IMPRESSION: MRI BRAIN: PAGE 2 Signed Report (CONTINUED) FAX: Dorian AshleyHerson Christopher [phone] [place]: St: ADM FAX: Nelly Alan FAX: Nora Mendez [phone] Name: CARINA LUICO [facility] : 1945 Age/S: 74/M [address] [place] [address] Blvd Unit #: [id number] Loc: G. [address] [place] [address] Phys: Nelly Alfonso MD Acct: [id number] Dis Date: Status: ADM IN PHONE #: [phone] Exam Date: 10/14/2019 1855 FAX #: [phone] Reason: vertigo EXAMS: CPT CODE: [id number] MRA NECK W/O CONT 96384 <Continued> 1. There is no acute intracranial process. There is no acute ischemia, cerebral edema or intracranial hemorrhage. 2. There is a mild burden of chronic small vessel ischemic lesions in the white matter. 3. There is a trace right mastoid air cell effusion. MRA HEAD: There is no arterial occlusion, high-grade stenosis, dissection, aneurysm, or arterial venous malformation. MRA NECK: 1. The evaluation is moderately limited due to artifact. 2. There is no arterial occlusion, high-grade stenosis, dissection, or aneurysm detected. CAROTID STENOSIS REFERENCE USING NASCET CRITERIA: % ICA stenosis = (1-narrowest ICA diameter/diameter of distal cervical ICA) x 100 -Mild: <50% stenosis -Moderate: 50-69% stenosis -Severe: 70-94% stenosis -Near occlusion: 95-99% stenosis -Occluded: 100% stenosis at 194 Reported and signed by: Homar Suazo D.O. CC: Herson Ashley; Nelly Lynn MD; Nora Mohr MD Technologist: RT Corin(R)(CT) [facility] Date/Time/By: 10/14/2019 (1940) : By: [email or web address] Orig Print D/T: S: 10/14/2019 (1943) PAGE 3 Signed Report - MRI BRAIN W/O [id number] 19:41:00 FAX: Herson Brown [phone] [place]: St: ADM FAX: Nelly Alan [phone] FAX: Nora Mendez [phone] Name: CARINA LUCIO [facility] : 1945 Age/S: 74/M [address] [place] [address] Unit #: [id number] Loc: G.[address] [place] [address] Phys: Nelly Alfonso MD Acct: [id number] Dis Date: Status: ADM IN PHONE #: [phone] Exam Date: 10/14/2019 1855 FAX #: [phone] Reason: vertigo EXAMS: CPT CODE: [id number] MR I BRAIN W/O CONT 05163 MRI BRAIN WITH OUT CONTRAST, MR ANGIOGRAM HEAD, MR ANGIOGRAM NECK INDICATION: ve rtigo. TECHNIQUE: Multiple MR sequences of the brain were perform ed without contrast. MR angiography of the head was performed with orbl-ya-xegvhz imaging and three-dimensional subtracted reconstructions. MR angiography of the neck was performed with three-dimensional subtracted reconstructions. COMPARISONS: CT head 10/14/2019 FI NDINGS: MRI BRAIN: The paranasal sinuses are clear a s visualized. There is a trace right mastoid air cell effusion. The vascular flow voids are preserved. There is an i ncidental dilan cisterna magna. The cerebral ventricles are normal caliber. There is moderate generalized brain parenchymal volume loss. There is no restricted water diffusion. There is a mild burden of chronic small vess el ischemic lesions in the white matter. There is no cerebral mass effect , midline shift, intracranial hemorrhage or acute cerebral edema. MRA HEAD: The vertebral arteries reveal no aneurysm, disse ction or high-grade luminal stenosis. The left vertebral artery is domin ant. The right vertebral artery is developmentally hypoplastic and appear s to terminate in the posterior inferior cerebellar artery with no c ontribution to the basilar artery. The basilar artery reveals no a neurysm, dissection, high-grade stenosis or occlusion. The p osterior cerebral arteries reveal no aneurysm, dissection or high-grade laksiha danita stenosis. There is a patent left posterior communicating cerebral a rtery. PAGE 1 Signed Report (DENNIS LUONG) FAX: Herson Brown [phone] [place]: St: [facility] FAX : Nelly Alan [phone] FAX: Nora Mendez [phone] Name: CARINA LUCIO [facility] : 1945 Age/S: 74/M [address] [place] [address] Unit #: [id number] Loc: G.5512 [place] [address] Phys: Nelly Alfonso MD Acct: [id number] Dis Date: Status: ADM IN PHONE #: [phone] Exam Date: 10/14/2019 1855 FAX #: [phone] Reason: vertigo EXAMS: CPT CODE: [id number] MRI BRAIN W/O CONT 86419 <Continued> The internal carotid arteries reveal no aneurysm, dissection or high-grade luminal stenosis. The middle cerebral arteries reveal no aneurysm, dissection or high-grade luminal stenosis. The anterior cerebral arteries reveal no aneurysm, dissection or high- grade luminal stenosis. MRA NECK: There is suscep tibility artifact in the region of the thoracic spine suggesting hardware. The aortic arch visualization is limited due to artifact but appe ars normal as seen. There is an incidental anatomic variation of the aortic arch with a common origin of the brachiocephalic artery and the le ft common carotid artery. There is limited visualization of the gr eat vessel origins from the arch due to artifact. There is limited visual ization of the subclavian artery proximal segments and the brachiocephalic artery proximal segment due to artifact. The left vertebral artery origin is obscured due to artifact. The remainder of this vessel is widely patent. The left vertebral artery is dominant. The right verte bral artery is patent and developmentally hypoplastic. The right vertebra l artery origin is obscured due to artifact. The bilateral p roximal common carotid arteries are obscured due to artifact. There is no occlusion, dissection or aneurysm detected. The bilateral internal carotid artery evaluation is mildly limited due to artifact. These vess els reveal no stenosis, aneurysm, dissection or occlusion. IMPRESSION: MRI BRAIN: PAGE 2 Signed Report (CONTINUED) FAX: Herson Brown [phone] [place]: St: [facility] FAX: Nelly Alan FAX: Nora Mendez [phone] Name: CARINA LUCIO [facility] : 1945 Age/S: 74/M [address] [place] [address] Unit #: [id number] Loc: G. [address] [place] [address] Phys: Nelly Alfonso MD Acct: [id number] Dis Date: Status: ADM IN PHONE #: [phone] Exam Date: 10/14/2019 1855 FAX #: [phone] Reason: vertigo EXAMS: CPT CODE: [id number] MRI BRAIN W/O CONT 06998 <Continued> 1. There is no acute intracranial process. There is no acute ischemia, cerebral edema or intracranial hemorrhage. 2. There is a mild burden of chronic small vessel ischemic lesions in the white matter. 3. There is a trace right mastoid air cell effusion. MRA HEAD: There is no arterial occlusion, high-grade stenosis, dissection, aneurysm, or arterial venous malformation. MRA NECK: 1. The evaluation is moderately limited due to artifact. 2. There is no arterial occlusion, high-grade stenosis, dissection, or aneurysm detected. CAROTID STENOSIS REFERENCE USING NASCET CRITERIA: % ICA stenosis = (1-narrowest ICA diameter/diameter of distal cervical ICA) x 100 -Mild: <50% stenosis -Moderate: 50-69% stenosis -Severe: 70-94% stenosis -Near occlusion: 95-99% stenosis -Occluded: 100% stenosis at 194 Reported and signed by: Homar Suazo D.O. CC: Herson Ashley; Nelly Lynn MD; Nora Mohr MD Technologist: Po Bhardwaj, RT(R)(CT) Trnscrd Date/Time/By: 10/14/2019 (1940) : By: [email or web address] Orig Print D/T: S: 10/14/2019 (1943) PAGE 3 Signed Report [id number] 17:50:00* Test Item Value Reference Range Interpretation Comments GLUBED (test code = GLUBED) 111 MG/DL 70-110 H Performed by certified trimming operator at [facility] CHEMISTRY 8 [id number] 16:56:00* Test Item Value Reference Range Interpretation Comments ISTAT-SODIUM (test code = NAP) MMOL/L 134-147 ISTAT-POTASSIUM (test code = KP) MMOL/L 3.4-5.0 ISTAT-CHLORIDE (test code = CLP) MMOL/L 100-108 ISTAT CARBON DIOXIDE (test code = ISTAT-CO2) mmol/L 21-33 N ISTAT CALCIUM IONIZED (test code = ISTAT-TREVOR) MG/DL 1.12-1.3 2 ISTAT-GLUCOSE (test code = GLUP) MG/DL 70-110 H ISTAT-BUN (test code = BUNP) MG/DL 7-18 N BEDSIDE CREATININE (test code = CREATBED) MG/DL 0.6-1.3 N GLOMERULAR FILTRATION RATE POC (test code = GFRBED) 100 ML/MIN CHEMISTRY 8 [id number] 16:56:00* Test Item Value Reference Range Interpretation Comments ISTAT-SODIUM (test code = NAP) 137 MMOL/L 134-147 N ISTAT-POTASSIUM (test code = KP) 5.4 MMOL/L 3.4-5.0 H ISTAT-CHLORIDE (test code = CLP) 105 MMOL/L 100-108 N Performed by certified trimming operator at [facility] ISTAT CARBON DIOXIDE (test code = ISTAT-CO2) 27.0 mmol/L 21-33 N ISTAT CALCIUM IONIZED (test code = ISTAT-TREVOR) 1.04 MG/DL 1.12-1.3 2 L ISTAT-GLUCOSE (test code = GLUP) 161 MG/DL 70-110 H ISTAT-BUN (test code = BUNP) 18 MG/DL 7-18 N BEDSIDE CREATININE (test code = CREATBED) 0.8 MG/DL 0.6-1.3 N GLOMERULAR FILTRATION RATE POC (test code = GFRBED) 100 ML/MIN TROPONIN-I [id number] 16:56:00* Test Item Value Reference Range Interpretation Comments TROPONIN-I RAPID (test code = TROPIRAP) 0.02 ng/mL 0.00-0.08 N Performed by certified trimming operator at [facility] Negative: <= 0.08 Positive: >= 0.09An elevated troponin value alone is not sufficient todiagnose a myocardial infarction. Rather, the patient sclinical presentation (history, physical exam) and ECGshould be used in conjunction with troponin in thediagnostic evaluation of suspected myocardial infarction. Aserial sampling protocol is recommended to facilitate the identification of temporal changes in troponin levels characteristic of [place]. [id number] 14:44:00* Test Item Value Reference Range Interpretation Comments POTASSIUM (test code = K) mEq/L 3.4-5.0 COMMENTS: 3 troponins total (including troponin done in ED)[id number] 14:44:00* Test Item Value Reference Range Interpretation Comments TROPONIN-I (test code = TROPI) < 0.015 ng/mL 0.000-0.045 N Negative: <= 0.045 Positive: >= 0.046 Correlation with serial results, other cardiac markers andclinical findings is necessary to determine the clinicalsignificance of this result. Results using different methodologies should not be comparedto one another as quantitative results may vary by method. COMMENTS: 3 troponins total (including troponin done in ED)[id number] 14:44:00* Test Item Value Reference Range Interpretation Comments POTASSIUM (test code = K) 4.1 mEq/L 3.4-5.0 N COMMENTS: 3 troponins total (including troponin done in ED)[id number] 14:44:00* Test Item Value Reference Range Interpretation Comments TROPONIN-I (test code = TROPI) < 0.015 ng/mL 0.000-0.045 N Negative: <= 0.045 Positive: >= 0.046 Correlation with serial results, other cardiac markers andclinical findings is necessary to determine the clinicalsignificance of this result. Results using different methodologies should not be comparedto one another as quantitative results may vary by method. COMMENTS: 3 troponins total (including troponin done in ED)- XR CHEST 1 V 2019-10-14 12:23:00 FAX: Domenic Cho DO [phone] [place]: St: [facility] FAX: Nora Mendez [phone] Name: CARINA LUCIO : 1945 Age/S: 74/M [address] [place] [address] Unit #: [id number] Loc: [place] [address] Phys: Domenic Briggs DO Acct: [id number] Dis Date: Status: REG ER PHONE #: [phone] Exam Date: 10/14/2019 1208 FAX #: [phone] Reason: Chest Pain EXAMS: CPT CODE: [id number] XR CHEST 1 V 84409 EXAM: XR CHEST 1 VIEW DATE: 10/14/2019 10:38 AM : 1945; Age: 74 years y/o Male INDICATION: Chest Pain COMPARISON: June 24, 2019 TECHNIQUE: AP chest. IMPRESSION: Lines, tubes and hardware: Prior sternotomy changes. ACDF is again seen. Heart, mediastinum and lungs: The heart size is enlarged. Vascular calcifications are present at the aorta. Pulmonary venous hypertension and subtle interstitial pulmonary edema are present. No consolidation or pleural effusion. SL: [id number] at 1223 Reported and signed by: Loc Nieves D.O. CC: Domenic Briggs DO; Nora Mohr MD Technologist: RT Dee Dee(R) Trnscrd Date/Time/By: 10/14/2019 (8613) : By: [email or web address] Orig Print D/T: S: 10/14/2019 (9717) PAGE 1 Signed Report - CT HEAD/BRAIN W/O [id number] 12:18:00 Name: CARINA LUCIO : 1945 Age/S: 74 / M [address] [place] [address] Unit #: [id number] Loc: [place] [address] Phys: Domenic Briggs DO Acct: [id number] Dis Date: Status: REG ER PHONE #: [phone] Exam Date: 10/14/2019 1155 FAX #: [phone] Reason: dizziness EXAMS: CPT CODE: [id number] CT HEAD/BRAIN W/O CONT 46040 STUDY: - CT HEAD/BRAIN W/O CONT 10/14/2019 10:38 AM Ordering Physician: Domenic Briggs DO Patient Name: CARINA LUCIO MR: [id number] : 1945; Age: 74 years y/o Male Clinical Indication: dizziness Comparison: February 17, 2019 CT head TECHNIQUE: Multiple contiguous transaxial noncontrast CT images were obtained through the head. Coronal and sagittal reformatted images were prepared. DOSE: CT imaging performed at this location utilizes radiation dose optimization technique which includes one or more of the followin) Automated exposure control; 2) Adjustment of the mA and/or kV according to patient's size; 3) Use of iterative reconstruction techniques. DLP (mGy-cm): 472 FINDINGS: BRAIN PARENCHYMA: Mild diffuse age-appropriate atrophy is present associated with mild nonspecific periventricular low attenuation most consistent with old microangiopathic ischemic change. Right greater cerebellar arachnoid cyst No evidence of acute intracranial hemorrhage, mass lesion, mass effect, midline shift, or extra-axial fluid collection. VENTRICLES: The lateral ventricles, third ventricle, fourth ventricle, and basilar cisterns are appropriate for degree of atrophy present. PARANASAL SINUSES: The visualized portions of the paranasal sinuses are clear. MASTOIDS: Clear. ORBITS: The visualized portions of the orbits are normal. SOFT TIS SUES: No significant abnormality. SKULL: No acute fracture or susp icious osseous lesion. PAGE 1 Signed Report (CONTINUED) Name: CARINA LUCIO [facility] : 1945 Age/S: 74 / M [address] Unit #: [id number] Loc: [place] [address] Phys: ChesterDomenic Acct: [id number] Dis Date: Status: REG ER PHONE #: [phone] Exam Date: 10/14/2019 1155 FAX #: [phone] Reason: dizziness EXAMS: CPT CODE: [id number] CT HEAD/BRAIN W/O CONT 31012 < Continued> IMPRESSION: No acute intracranial abnormality. SL: [id number] at 1218 Reported and signed by: Baldo Logan M.D. CC: Domenic Briggs DO; Nora Mohr MD Technologist:Jessi Monahan RT(R)(CT) CTDI: DLP: Trnscb Date/Time: 10/14/2019 (1218) [email or web address] Orig Print D/T: S: 10/14/2019 (2561) PAGE 2 Signed Report CHEMISTRY 8 [id number] 11:43:00* Test Item Value Reference Range Interpretation Comments ISTAT-SODIUM (test code = NAP) MMOL/L 134-147 ISTAT-POTASSIUM (test code = KP) MMOL/L 3.4-5.0 ISTAT-CHLORIDE (test code = CLP) MMOL/L 100-108 ISTAT CARBON DIOXIDE (test code = ISTAT-CO2) mmol/L 21-33 N ISTAT CALCIUM IONIZED (test code = ISTAT-TREVOR) MG/DL 1.12-1.3 2 ISTAT-GLUCOSE (test code = GLUP) MG/DL 70-110 H ISTAT-BUN (test code = BUNP) MG/DL 7-18 N BEDSIDE CREATININE (test code = CREATBED) MG/DL 0.6-1.3 N GLOMERULAR FILTRATION RATE POC (test code = GFRBED) 100 ML/MIN CHEMISTRY 8 [id number] 11:43:00* Test Item Value Reference Range Interpretation Comments ISTAT-SODIUM (test code = NAP) 137 MMOL/L 134-147 N ISTAT-POTASSIUM (test code = KP) 5.4 MMOL/L 3.4-5.0 H ISTAT-CHLORIDE (test code = CLP) 105 MMOL/L 100-108 N Performed by certified trimming operator at [facility] ISTAT CARBON DIOXIDE (test code = ISTAT-CO2) 27.0 mmol/L 21-33 N ISTAT CALCIUM IONIZED (test code = ISTAT-TREVOR) 1.04 MG/DL 1.12-1.3 2 L ISTAT-GLUCOSE (test code = GLUP) 161 MG/DL 70-110 H ISTAT-BUN (test code = BUNP) 18 MG/DL 7-18 N BEDSIDE CREATININE (test code = CREATBED) 0.8 MG/DL 0.6-1.3 N GLOMERULAR FILTRATION RATE POC (test code = GFRBED) 100 ML/MIN TROPONIN-I [id number] 11:41:00* Test Item Value Reference Range Interpretation Comments TROPONIN-I RAPID (test code = TROPIRAP) 0.02 ng/mL 0.00-0.08 N Performed by certified trimming operator at [facility] Negative: <= 0.08 Positive: >= 0.09An elevated troponin value alone is not sufficient todiagnose a myocardial infarction. Rather, the patient sclinical presentation (history, physical exam) and ECGshould be used in conjunction with troponin in thediagnostic evaluation of suspected myocardial infarction. Aserial sampling protocol is recommended to facilitate the identification of temporal changes in troponin levels characteristic of [place]. TROPONIN-I [id number] 11:08:00* Test Item Value Reference Range Interpretation Comments TROPONIN-I RAPID (test code = TROPIRAP) 0.02 ng/mL 0.00-0.08 N Performed by certified trimming operator at [facility] Negative: <= 0.08 Positive: >= 0.09An elevated troponin value alone is not sufficient todiagnose a myocardial infarction. Rather, the patient sclinical presentation (history, physical exam) and ECGshould be used in conjunction with troponin in thediagnostic evaluation of suspected myocardial infarction. Aserial sampling protocol is recommended to facilitate the identification of temporal changes in troponin levels characteristic of [place]. CBC W/AUTO [id number] 11:03:00* Test Item Value Reference Range Interpretation Comments WHITE BLOOD CELL (test code = WBC) 6.07 x10 3/uL 4.5-11.0 N RED BLOOD CELL (test code = RBC) 4.21 x10 6/uL 4.00-5.60 N HEMOGLOBIN (test code = HGB) 13.3 g/dL 12.5-16.9 N HEMATOCRIT (test code = HCT) 42.2 % 37.5-50.7 N MEAN CELL VOLUME (test code = MCV) 100.2 fL 81.0-99.0 H MEAN CELL HGB (test code = MCH) 31.6 pg 27.0-33.0 N MEAN CELL HGB CONCETRATION (test code = MCHC) 31.5 g/dL 33.0-37. 0 L RED CELL DISTRIBUTION WIDTH CV (test code = RDW) 13.6 % 11.5- 14.5 N RED CELL DISTRIBUTION WIDTH SD (test code = RDW-SD) 50.2 fL 37 .0-54.0 N PLATELET COUNT (test code = PLT) 186 x10 3/uL 150-400 N MEAN PLATELET VOLUME (test code = MPV) 9.9 fL 7.0-9.0 H NEUTROPHIL % (test code = NT%) 66.8 % 56.0-77.0 N IMMATURE GRANULOCYTE % (test code = IG%) 1.8 % 0.0-2.0 N LYMPHOCYTE % (test code = LY%) 20.1 % 14.0-32.0 N MONOCYTE % (test code = MO%) 7.9 % 4.8-9.0 N EOSINOPHIL % (test code = EO%) 2.6 % 0.3-3.7 N BASOPHIL % (test code = BA%) 0.8 % 0.0-2.0 N NUCLEATED RBC % (test code = NRBC%) 0.0 % 0-0 N NEUTROPHIL # (test code = NT#) 4.05 x10 3/uL 2.0-7.6 N IMMATURE GRANULOCYTE # (test code = IG#) 0.11 x10 3/uL 0.00-0.03 H LYMPHOCYTE # (test code = LY#) 1.22 x10 3/uL 1.0-3.8 N MONOCYTE # (test code = MO#) 0.48 x10 3/uL 0.1-0.8 N EOSINOPHIL # (test code = EO#) 0.16 x10 3/uL 0.0-0.2 N BASOPHIL # (test code = BA#) 0.05 x10 3/uL 0.0-0.2 N NUCLEATED RBC # (test code = NRBC#) 0.00 x10 3/uL 0.0-0.1 N MANUAL DIFF REQUIRED (test code = MDIFF) NO CHEMISTRY 8 [id number] 10:58:00* Test Item Value Reference Range Interpretation Comments ISTAT-SODIUM (test code = NAP) MMOL/L 134-147 ISTAT-POTASSIUM (test code = KP) MMOL/L 3.4-5.0 ISTAT-CHLORIDE (test code = CLP) MMOL/L 100-108 ISTAT CARBON DIOXIDE (test code = ISTAT-CO2) mmol/L 21-33 N ISTAT CALCIUM IONIZED (test code = ISTAT-TREVOR) MG/DL 1.12-1.3 2 ISTAT-GLUCOSE (test code = GLUP) MG/DL 70-110 H ISTAT-BUN (test code = BUNP) MG/DL 7-18 N BEDSIDE CREATININE (test code = CREATBED) MG/DL 0.6-1.3 N GLOMERULAR FILTRATION RATE POC (test code = GFRBED) 100 ML/MIN CHEMISTRY 8 [id number] 10:58:00* Test Item Value Reference Range Interpretation Comments ISTAT-SODIUM (test code = NAP) 137 MMOL/L 134-147 N ISTAT-POTASSIUM (test code = KP) 5.4 MMOL/L 3.4-5.0 H ISTAT-CHLORIDE (test code = CLP) 105 MMOL/L 100-108 N Performed by certified trimming operator at [facility] ISTAT CARBON DIOXIDE (test code = ISTAT-CO2) 27.0 mmol/L 21-33 N ISTAT CALCIUM IONIZED (test code = ISTAT-TREVOR) 1.04 MG/DL 1.12-1.3 2 L ISTAT-GLUCOSE (test code = GLUP) 161 MG/DL 70-110 H ISTAT-BUN (test code = BUNP) 18 MG/DL 7-18 N BEDSIDE CREATININE (test code = CREATBED) 0.8 MG/DL 0.6-1.3 N GLOMERULAR FILTRATION RATE POC (test code = GFRBED) 100 ML/MIN B-TYPE NATRIURETIC [id number] 11:31:00* Test Item Value Reference Range Interpretation Comments B-TYPE NATRIURETIC PEPTIDE (test code = BNP) 90.5 PG/ML 0-100 N HEPATIC FUNCTION [id number] 11:14:00* Test Item Value Reference Range Interpretation Comments TOTAL PROTEIN (test code = PROT) 6.9 g/dL 6.4-8.2 N ALBUMIN (test code = ALB) 3.30 g/dL 3.4-5.0 L BILIRUBIN TOTAL (test code = BILT) 0.30 mg/dL 0.0-1.0 N BILIRUBIN DIRECT (test code = BILD) < 0.10 MG/DL 0.0-0.30 N BILIRUBIN INDIRECT (test code = BILIND) 0.20 MG/DL SGOT/AST (test code = AST) 23 IUnit/L 15-37 N SGPT/ALT (test code = ALT) 33 IUnit/L 15-65 N ALKALINE PHOSPHATASE TOTAL (test code = ALKP) 70 IUnit/L 20-125 N [id number] 11:05:00* Test Item Value Reference Range Interpretation Comments D-DIMER (test code = DDIMER) 429 ng/mlFEU <=500 N THROMBOSIS AND/OR PULMONARY EMBOLISM AND THE CLINICAL CUT- OFF VALUE FOR EXCLUSION (500 ng/mL FEU) OF THESE CONDITIONSIS VALIDATED BY THE BLOW MOLDING MACHINE TENDER OF THE METHOD. A NEGATIVE D-DIMER RESULT WHEN COMBINED WITH A CLINICALASSESSMENT OF LOW PRETEST PROBABILITY HAS BEEN SHOWN TO HAVEA HIGH NEGATIVE PREDICTIVE VALUE OF DVT OR PE. D-DIMER VALUES >500 ng/mL FEU ARE NOT DIAGNOSTIC FOR DVT, PEor DIC WITHOUT OTHER CONFIRMATORY TESTS AND APPROPRIATECLINICAL EUALUATIONS. CBC W/AUTO [id number] 10:55:00* Test Item Value Reference Range Interpretation Comments WHITE BLOOD CELL (test code = WBC) 7.25 x10 3/uL 4.5-11.0 N RED BLOOD CELL (test code = RBC) 4.26 x10 6/uL 4.00-5.60 N HEMOGLOBIN (test code = HGB) 13.1 g/dL 12.5-16.9 N HEMATOCRIT (test code = HCT) 40.8 % 37.5-50.7 N MEAN CELL VOLUME (test code = MCV) 95.8 fL 81.0-99.0 N MEAN CELL HGB (test code = MCH) 30.8 pg 27.0-33.0 N MEAN CELL HGB CONCETRATION (test code = MCHC) 32.1 g/dL 33.0-37. 0 L RED CELL DISTRIBUTION WIDTH CV (test code = RDW) 13.9 % 11.5- 14.5 N RED CELL DISTRIBUTION WIDTH SD (test code = RDW-SD) 48.8 fL 37 .0-54.0 N PLATELET COUNT (test code = PLT) 187 x10 3/uL 150-400 N MEAN PLATELET VOLUME (test code = MPV) 9.7 fL 7.0-9.0 H NEUTROPHIL % (test code = NT%) 63.6 % 56.0-77.0 N IMMATURE GRANULOCYTE % (test code = IG%) 2.2 % 0.0-2.0 H LYMPHOCYTE % (test code = LY%) 19.2 % 14.0-32.0 N MONOCYTE % (test code = MO%) 9.7 % 4.8-9.0 H EOSINOPHIL % (test code = EO%) 4.6 % 0.3-3.7 H BASOPHIL % (test code = BA%) 0.7 % 0.0-2.0 N NUCLEATED RBC % (test code = NRBC%) 0.0 % 0-0 N NEUTROPHIL # (test code = NT#) 4.62 x10 3/uL 2.0-7.6 N IMMATURE GRANULOCYTE # (test code = IG#) 0.16 x10 3/uL 0.00-0.03 H LYMPHOCYTE # (test code = LY#) 1.39 x10 3/uL 1.0-3.8 N MONOCYTE # (test code = MO#) 0.70 x10 3/uL 0.1-0.8 N EOSINOPHIL # (test code = EO#) 0.33 x10 3/uL 0.0-0.2 H BASOPHIL # (test code = BA#) 0.05 x10 3/uL 0.0-0.2 N NUCLEATED RBC # (test code = NRBC#) 0.00 x10 3/uL 0.0-0.1 N MANUAL DIFF REQUIRED (test code = MDIFF) NO TROPONIN-I [id number] 10:34:00* Test Item Value Reference Range Interpretation Comments TROPONIN-I RAPID (test code = TROPIRAP) 0.02 ng/mL 0.00-0.08 N Performed by certified trimming operator at [facility] Negative: <= 0.08 Positive: >= 0.09An elevated troponin value alone is not sufficient todiagnose a myocardial infarction. Rather, the patient sclinical presentation (history, physical exam) and ECGshould be used in conjunction with troponin in thediagnostic evaluation of suspected myocardial infarction. Aserial sampling protocol is recommended to facilitate the identification of temporal changes in troponin levels characteristic of [place]. - XR CHEST 2 [id number] 10:33:00 FAX: Easton Valdez DO [place]: St: REG FAX: Nora Mendez [phone] Name: CARINA LUCIO [facility] [place] : 1945 Age/S: 73/M [address] [place] [address] Unit #: [id number] Loc: [place] [address] Phys: Jonathan Blackmanfredy Fidelina MAY Acct: [id number] Dis Date: Status: REG ER PHONE #: [phone] Exam Date: 06/24/2019 1006 FAX #: [phone] Reason: dyspnea EXAMS: CPT CODE: [id number] XR CHEST 2 V 77376 PROCEDURE: CHEST TWO VIEW INDICATION: Dyspnea COMPARISON: Multiple priors, most recent 05/05/2019 FINDINGS: The lungs are clear. No pleural abnormality. Sternotomy wires and mediastinal clips compatible with CABG. The cardiomediastinal silhouette is stable. The pulmonary vasculature is normal. No acute skeletal abnormality. IMPRESSION: No acute radiographic abnormality. Previous cardiac surgery. No evidence for failure at this time. SL: [id number] at 1033 Reported and signed by: Dominic Lane M.D. CC: Easton Blackman DO; Nora Mohr MD Technologist: RT Dee Dee(Lorin) Trnscrd Date/Time/By: 06/24/2019 (1033) : By: Jamison Orig Print D/T: S: 06/24/2019 (2976) PAGE 1 Signed Report LACTIC ACID [id number] 10:29:00* Test Item Value Reference Range Interpretation Comments LACTIC ACID POC (test code = LACTP) 1.9 MMOL/L 0.90-1.70 H Performed by certified trimming operator at [facility] CHEMISTRY 8 [id number] 10:27:00* Test Item Value Reference Range Interpretation Comments ISTAT-SODIUM (test code = NAP) MMOL/L 134-147 ISTAT-POTASSIUM (test code = KP) MMOL/L 3.4-5.0 ISTAT-CHLORIDE (test code = CLP) MMOL/L 100-108 ISTAT CARBON DIOXIDE (test code = ISTAT-CO2) mmol/L 21-33 N ISTAT CALCIUM IONIZED (test code = ISTAT-TREVOR) MG/DL 1.12-1.3 2 ISTAT-GLUCOSE (test code = GLUP) MG/DL 70-110 H ISTAT-BUN (test code = BUNP) MG/DL 7-18 H BEDSIDE CREATININE (test code = CREATBED) MG/DL 0.6-1.3 N GLOMERULAR FILTRATION RATE POC (test code = GFRBED) 88 ML/MIN CHEMISTRY 8 [id number] 10:27:00* Test Item Value Reference Range Interpretation Comments ISTAT-SODIUM (test code = NAP) 139 MMOL/L 134-147 N ISTAT-POTASSIUM (test code = KP) 4.3 MMOL/L 3.4-5.0 N ISTAT-CHLORIDE (test code = CLP) 108 MMOL/L 100-108 N Performed by certified trimming operator at [facility] ISTAT CARBON DIOXIDE (test code = ISTAT-CO2) 22.0 mmol/L 21-33 N ISTAT CALCIUM IONIZED (test code = ISTAT-TREVOR) 1.12 MG/DL 1.12-1.3 2 N ISTAT-GLUCOSE (test code = GLUP) 138 MG/DL 70-110 H ISTAT-BUN (test code = BUNP) 19 MG/DL 7-18 H BEDSIDE CREATININE (test code = CREATBED) 0.9 MG/DL 0.6-1.3 N GLOMERULAR FILTRATION RATE POC (test code = GFRBED) 88 ML/MIN [id number] 17:58:00* Test Item Value Reference Range Interpretation Comments D-DIMER (test code = DDIMER) 310 ng/mlFEU <=500 N THROMBOSIS AND/OR PULMONARY EMBOLISM AND THE CLINICAL CUT- OFF VALUE FOR EXCLUSION (500 ng/mL FEU) OF THESE CONDITIONSIS VALIDATED BY THE BLOW MOLDING MACHINE TENDER OF THE METHOD. A NEGATIVE D-DIMER RESULT WHEN COMBINED WITH A CLINICALASSESSMENT OF LOW PRETEST PROBABILITY HAS BEEN SHOWN TO HAVEA HIGH NEGATIVE PREDICTIVE VALUE OF DVT OR PE. D-DIMER VALUES >500 ng/mL FEU ARE NOT DIAGNOSTIC FOR DVT, PEor DIC WITHOUT OTHER CONFIRMATORY TESTS AND APPROPRIATECLINICAL EUALUATIONS. - DUP VEIN [id number] 17:03:00 Name: CARINA LUCIO [facility] : 1945 Age/S: 73 / [place] [address] [place] [address] Blvd Unit #: [id number] Loc: [place] [address] Phys: Ariel Mooney MD Acct: [id number] Dis Date: Status: ADM IN PHONE #: [phone] Exam Date: 05/06/2019 1653 FAX #: [phone] Reason: Swelling, R/O DVT EXAMS: CPT CODE: [id number] DUP VEIN TOM 94674 PROCEDURE: BILATERAL LOWER EXTREMITY VENOUS ULTRASOUND INDICATION: CHF. Edema. Rule out DVT. COMPARISON: December 2010 TECHNIQUE: Sonographic evaluation of the bilateral lower extremity veins was performed using high resolution B-mode, pulse and color Doppler imaging. FINDINGS: RIGHT: The common femoral, femoral, popliteal and visualized calf veins are patent. Normal venous waveforms. The saphenofemoral junction is unremarkable. LEFT: The common femoral, popliteal and visualized calf veins are patent and fully compressible with normal venous waveforms. The femoral vein is partially compressible with small volume of moderately echogenic thrombus in the periphery of the vessel. Central flow is preserved with phasic venous waveforms. The saphenofemoral junction is unremarkable. IMPRESSION: 1. Small volume of nonocclusive thrombus in the left femoral vein. Appearance suggests chronic residua of previous deep venous thrombosis though is new from 2010. Acute component not excluded. 2. Patent right lower extremity deep venous system. A verbal report was called to Diya Rdz RN on 05/06/2019 5:00 PM. FOR INTERNAL CODING PURPOSES ONLY RESULT CODE: BRAN SL: [id number] at 1703 Reported and signed by: Dominic Lane M.D. PAGE 1 Signed Report (CONTINUED) [facility] 1945 Age/S: 73 / M [address] [place] [address] Unit #: [id number] Loc: [place] [address] Phys: Ariel Mooney MD Acct: [id number] Dis Date: Status: ADM IN PHONE #: [phone] Exam Date: 05/06/2019 1653 FAX #: [phone] Reason: Swelling, R/O DVT EXAMS: CPT CODE: [id number] DUP VEIN TOM 16235 <Continued> CC: Ariel Mooney MD; Nora Mohr MD Technologist: Ewa Lozano RDMS() Trnscb Date/Time: 05/06/2019 (1702) Jamison Orig Print D/T: S: 05/06/2019 (1705) Probe: PAGE 2 Signed Report - PULM VENT PERF [id number] 15:49:00 FAX: Ariel Payne MD [phone] [place]: St: ADM FAX: Nora Mendez [phone] Name: CARINA LUCIO [facility] [place] : 1945 Age/S: 73/M [address] [place] [address] Unit #: [id number] Loc: G.4419 [place] [address] Phys: Ariel Mooney MD Acct: [id number] Dis Date: Status: ADM IN PHONE #: [phone] Exam Date: 05/06/2019 1533 FAX #: [phone] Reason: R/O PE EXAMS: CPT CODE: [id number] PULM VENT PERF IMAG [id number] PROCEDURE: NUCLEAR MEDICINE VENTILATION PERFUSION SCAN INDICATION: CHF. Cough, shortness of breath, wheezing. COMPARISON: CXR 05/05/2019 TECHNIQUE: 10 mCi Xenon 133 inhaled for ventilation study. 5 mCi Tc 99m MAA administered intravenously left forea rm for perfusion study. FINDINGS: VENTILATION : Homogeneous and symmetric. No significant air trapping. Xenon uptake not ed in the liver compatible with hepatic steatosis. PERFUSION: Homo geneous and symmetric. No segmental or subsegmental perfusion defects. IMPRESSION: Normal ventilation and perfusion. SL: [id number] at 7731 Reported and signed by: Dominic Lane M.D. CC: Ariel Mooney MD; Nora Mohr MD Technologist: MARY Ruiz (N)(CT); ... Trnscrd Date/Time/By: 05/06/2019 (0006) : By: [email or web address] Orig Print D/T: S: 05/06/2019 (7227) PAGE 1 Signed Report COMPREHENSIVE METABOLIC [id number] 08:48:00* Test Item Value Reference Range Interpretation Comments SODIUM (test code = NA) 135 mEq/L 134-147 N POTASSIUM (test code = K) 3.5 mEq/L 3.4-5.0 CHLORIDE (test code = CL) 97 mEq/L 100-108 L CARBON DIOXIDE (test code = CO2) 26 mEq/L 21-33 ANION GAP (test code = GAP) 16 0-20 N GLUCOSE (test code = GLU) 164 mg/dL 70-110 H BLOOD UREA NITROGEN (test code = BUN) 29 mg/dL 7-18 H GLOMERULAR FILTRATION RATE (test code = GFR) 59.2 70-80 L Units of measure = ml/min/1.73 m2 CREATININE (test code = CREAT) 1.2 mg/dL 0.6-1.3 N TOTAL PROTEIN (test code = PROT) 7.5 g/dL 6.4-8.2 N ALBUMIN (test code = ALB) 3.40 g/dL 3.4-5.0 N CALCIUM (test code = CA) 9.4 mg/dL 8.0-10.5 N BILIRUBIN TOTAL (test code = BILT) 0.30 mg/dL 0.0-1.0 SGOT/AST (test code = AST) 20 IUnit/L 15-37 N SGPT/ALT (test code = ALT) 27 IUnit/L 15-65 N ALKALINE PHOSPHATASE TOTAL (test code = ALKP) 102 IUnit/L 20-125 N [id number] 08:48:00* Test Item Value Reference Range Interpretation Comments MAGNESIUM (test code = MAG) 2.00 mg/dL 1.8-2.4 N T4 [id number] 08:48:00* Test Item Value Reference Range Interpretation Comments T4 FREE (test code = T4F) 0.9 ng/dL 0.77-1.61 N THYROID STIMULATING [id number] 08:48:00* Test Item Value Reference Range Interpretation Comments THYROID STIMULATING HORMONE (test code = TSH) 1.46 0.42-5.4 7 N Results in rasta- International Units/mL - CT CHEST W/O [id number] 08:29:00 Name: CARINA LUCIO [facility] : 1945 Age/S: 73 / M [address] [place], [place] [address]vd Unit #: [id number] Loc: [place] [address] Phys: Herson Ashley MD Acct: [id number] Dis Date: Status: ADM IN PHONE #: [phone] Exam Date: 05/05/20191951 FAX #: [phone] Reason: SHORTNESS OF BREATH, COUGH, WHEEZING EXAMS: CPT CODE: [id number] CT CHEST W/O CONTRAST 37527 PROCEDURE: CT CHEST WITHOUT CONTRAST INDICATION: SHORTNESS OF BREATH, COUGH, WHEEZING COMPARISON: Current CXR, CTA chest November 2012 TECHNIQUE: Noncontrasted helical imaging performed apices through the lung bases with multiplanar reconstructions. CT imaging performed at this location utilizes radiation dose optimization techniques which include one or more of the following: - Automated exposure control -Adjustment of the mA and/or kV according to patient size -Use of iterative reconstruction technique CT Radiation Dose DLP 472.89 mGy-cm FINDINGS: LUNGS AND PLEURA: The lungs are essentially clear. No consolidation. Few bandlike opacities are stable and compatible with chronic scarring. There are a few diminutive circumscribed nodules stable from 2013 and compatible with benign findings as follows: left upper lobe, subpleural, axial series 2 image 25, 4 mm, right middle lobe, axial series 2 image 67, 3 mm, right lower lobe, axial series 2 image 76, 4 mm. No pleural abnormality. The central airways are patent. MEDIASTINUM: Postoperative changes of CABG. No fluid collection. No adenopathy. The esophagus is unremarkable. HEART: Heavily calcified coronary arteries. Prior CABG. No pericardial effusion. Left atrial appendage occlusion device. VASCULAR ST RUCTURES: Mild atherosclerosis thoracic aorta and branch vessels. No aneur ysm. The superior vena cava is unremarkable. UPPER ABDOMEN: Limite d noncontrast survey of the upper abdominal viscera demonstrates no acute abnormality. Diminished attenuation of the liver with attenuation value sl ightly less than 40 Hounsfield units. The gallbladder is surgically absent . MUSCULOSKELETAL: Healed median sternotomy. No acute skeletal abnormality. IMPRESSION: 1. No acute abnormality dem onstrated to account for the patient's symptoms. No evidence for pneumon ia. 2. Atherosclerosis. Heavily calcified coronary arteries. Prior CABG. PAGE 1 Signed Report (CONTINUED) Name: CARINA LUCIO [facility] : 1945 Age/S: 73 / M [address] [place] [address] Unit #: [id number] Loc: [place] [address] Phys: Arsen Ashley MD Acct: [id number] Di s Date: Status: ADM IN PHONE #: Exam Date: 05/05/20191951 FAX #: Reason: SHORTNESS OF BREATH, COUGH, WHEEZING EXAMS: CPT CODE: [id number] CT CHEST W/O CONTRAST 80310 <Continued> 3. Hepatic steatosis. SL: [id number] at 0829 Reported and signed by: Dominic Lane M.D. CC: Nora Mohr MD Technologist:Maryellen Morales, RT(R)(CT) CTDI: DLP: Trnscb Date/Time: 05/06/2019 (08) [email or web address] Orig Print D/T: S: 05/06/2019 (5657) PAGE 2 Signed Report - XR CHEST 2 [id number] 20:49:00 FAX: Nora Mendez [phone] [place]: St: ADM Name: Fidelina CARINA GRIGSBY [facility] : [birth year] Age/S: 73/M [address] [place] [address] Unit #: [id number] Loc: [facility] [place] [address] Phys: Herson Ashley MD Acct: [id number] Dis Date: Status: ADM IN PHONE #: [phone] Exam Date: 05/05/20191940 FAX #: [phone] Reason: decompensated CHF EXAMS: CPT CODE: [id number] XR CHEST 2 V 33964 Clinical Indication: decompensated CHF Comparison: 02/17/2019 FINDINGS: The fron jorden and lateral chest radiographs show normal lung volumes. No interstitia l or airspace opacities are seen. No pleural effusions are present. No p neumothorax is seen. The heart is enlarged. The trachea is midline . Sternotomy wires are present. Hardware fusing the cervical spine are p artially visualized. There are no clinically significant osseous a bnormalities noted. IMPRESSION: 1. No chest radiographi c evidence of acute cardiopulmonary disease. 2. Stable cardiomegaly. SL: SABA at 4056 Reported and signed by: Kirk Bridges M.D. CC: Nora Mohr MD Technologist: Chester Gomez RT(R) T rnscrd Date/Time/By: 05/05/2019 (2048) : By: [email or web address] Orig Print D/T: S: 05/05/2019 (2051) PAGE 1 Sign ed Report B-TYPE NATRIURETIC [id number] 14:48:00* Test Item Value Reference Range Interpretation Comments B-TYPE NATRIURETIC PEPTIDE (test code = BNP) 23.7 PG/ML 0-100 N COMPREHENSIVE METABOLIC [id number] 14:09:00* Test Item Value Reference Range Interpretation Comments SODIUM (test code = NA) 137 mEq/L 134-147 N POTASSIUM (test code = K) 4.5 mEq/L 3.4-5.0 N CHLORIDE (test code = CL) 97 mEq/L 100-108 L CARBON DIOXIDE (test code = CO2) 35 mEq/L 21-33 H ANION GAP (test code = GAP) 10 0-20 N GLUCOSE (test code = GLU) 144 mg/dL 70-110 H BLOOD UREA NITROGEN (test code = BUN) 30 mg/dL 7-18 H GLOMERULAR FILTRATION RATE (test code = GFR) 54.0 70-80 L Units of measure = ml/min/1.73 m2 CREATININE (test code = CREAT) 1.3 mg/dL 0.6-1.3 N TOTAL PROTEIN (test code = PROT) 7.7 g/dL 6.4-8.2 N ALBUMIN (test code = ALB) 3.50 g/dL 3.4-5.0 N CALCIUM (test code = CA) 9.4 mg/dL 8.0-10.5 N BILIRUBIN TOTAL (test code = BILT) 0.50 mg/dL 0.0-1.0 N SGOT/AST (test code = AST) 36 IUnit/L 15-37 N SGPT/ALT (test code = ALT) 26 IUnit/L 15-65 N ALKALINE PHOSPHATASE TOTAL (test code = ALKP) 101 IUnit/L 20-125 N CBC W/AUTO [id number] 13:56:00* Test Item Value Reference Range Interpretation Comments WHITE BLOOD CELL (test code = WBC) 7.91 x10 3/uL 4.5-11.0 N RED BLOOD CELL (test code = RBC) 4.62 x10 6/uL 4.00-5.60 N HEMOGLOBIN (test code = HGB) 14.0 g/dL 12.5-16.9 N HEMATOCRIT (test code = HCT) 43.7 % 37.5-50.7 N MEAN CELL VOLUME (test code = MCV) 94.6 fL 81.0-99.0 N MEAN CELL HGB (test code = MCH) 30.3 pg 27.0-33.0 N MEAN CELL HGB CONCETRATION (test code = MCHC) 32.0 g/dL 33.0-37. 0 L RED CELL DISTRIBUTION WIDTH CV (test code = RDW) 13.4 % 11.5- 14.5 N RED CELL DISTRIBUTION WIDTH SD (test code = RDW-SD) 45.7 fL 37 .0-54.0 N PLATELET COUNT (test code = PLT) 214 x10 3/uL 150-400 N MEAN PLATELET VOLUME (test code = MPV) 10.3 fL 7.0-9.0 H NEUTROPHIL % (test code = NT%) 58.5 % 56.0-77.0 N IMMATURE GRANULOCYTE % (test code = IG%) 3.3 % 0.0-2.0 H LYMPHOCYTE % (test code = LY%) 22.8 % 14.0-32.0 N MONOCYTE % (test code = MO%) 11.0 % 4.8-9.0 H EOSINOPHIL % (test code = EO%) 3.5 % 0.3-3.7 N BASOPHIL % (test code = BA%) 0.9 % 0.0-2.0 N NUCLEATED RBC % (test code = NRBC%) 0.0 % 0-0 N NEUTROPHIL # (test code = NT#) 4.63 x10 3/uL 2.0-7.6 N IMMATURE GRANULOCYTE # (test code = IG#) 0.26 x10 3/uL 0.00-0.03 H LYMPHOCYTE # (test code = LY#) 1.80 x10 3/uL 1.0-3.8 N MONOCYTE # (test code = MO#) 0.87 x10 3/uL 0.1-0.8 H EOSINOPHIL # (test code = EO#) 0.28 x10 3/uL 0.0-0.2 H BASOPHIL # (test code = BA#) 0.07 x10 3/uL 0.0-0.2 N NUCLEATED RBC # (test code = NRBC#) 0.00 x10 3/uL 0.0-0.1 N MANUAL DIFF REQUIRED (test code = MDIFF) NO - XR RIBS UNI W/CXR 3+V [id number] 18:09:00 FAX: Yon Varela MD [phone] [place]: St: REG FAX: Nora Mendez [phone] Name: CARINA LUCIO [facility] : 1945 Age/S: 73/M [address] [place] [address] Unit #: [id number] Loc: [place] [address] Phys: Yon Varela MD Acct: [id number] Dis Date: Status: REG ER PHONE #: [phone] Exam Date: 02/17/2019 1745 FAX #: [phone] Reason: fall from standing, now with R sided lateral ri EXAMS: CPT CODE: [id number] XR RIBS UNI W/CXR 3+[place] [address] RIGHT RIB CAGE SERIES WITH PA CHEST RADIOGRAPH 02/17/2019 AT 1749 HOURS. CLINICAL HISTORY: Fall from standing. Right lateral rib cage pain. COMPARISONS: Chest 2 views 06/15/2017. FINDINGS: 5 views of the right rib cage including a PA chest radiograph were obtained. No visible rib fractures or pneumothorax. No extrapleural hematoma or pleural effusion. The lungs are clear. The cardiac silhouet te is enlarged with prior median sternotomy and CABG surgery. Severe thor acic spondylosis with prior anterior cervical spine fusion. No destructiv e bone lesions IMPRESSION: 1. No visible rib fracture or pneumothorax. 2. Enlarged cardiac silhouette with chronic postoperative mediastinum. 3. Anterior cervical spine fusion. SL: ER-H at 1809 Reported and signed by: Yovany Patino M.D. CC: Ken Varela MD; Nora Mohr MD Technologist: Darlene marie, RT(R); Liz Ho RT(R) Trnscrd Date/Time/By: 02/17/2019 (1808 ) : By: [email or web address] Orig Print D/T: S: 02/17/2019 (1031) PAGE 1 Signed Report - CT HEAD/BRAIN W/O [id number] 17:56:00 Name: CAIRNA LUCIO [facility] : 1945 Age/S: 73 / M [address] [place] [address] Unit #: [id number] Loc: [place] [address] Phys: Yon Varela MD Acct: [id number] Dis Date: Status: REG ER PHONE #: [phone] Exam Date: 02/17/2019 1735 FAX #: [phone] Reason: HEADACHE EXAMS: CPT CODE: [id number] CT HEAD/BRAIN W/O CONT 99225 PROCEDURE: CT BRAIN WITHOUT CONTRAST INDICATION: 73 years Male, HEADACHE. COMPARISON: None. TECHNIQUE: Noncontrast helical images of the brain are obtained from the skull base to the vertex. DOSE: CT imaging performed at this location utilizes radiation dose optimization technique which includes one or more of the followin) Automated exposure control; 2) Adjustment of the mA and/or kV according to patient's size; 3) Use of iterative reconstruction techniques. DLP (mGy-cm): 420 FINDINGS: BRAIN: Age appropriate atrophy. The ventricles are normal appearance without dilatation. Negative for acute hemorrhage, infarct, mass lesion, mass effect, or midline shift. CALVARIUM/SKULL BASE: No evidence of fracture or destructive bony lesion. Limited visualized paranasal sinuses are clear without air-fluid level or mucosal thickening. The mastoid air cells are clear. IMPRESSION: No acute intracranial abnormality. SL: [id number] at 1756 Reported and signed by: Carina Ness M.D. CC: Yon Varela MD; Nora Mohr MD Technologist:Sumit Levy, RT(R) CTDI: DLP: Trnscb Date/Time: 02/17/2019 (1755) [email or web address] Orig Print D/T: S: 02/17/2019 (8980) CTDI: DLP: PAGE 1 Signed Report - XR PELVIS 1/2 [id number] 17:28:00 FAX: Yon Varela MD [phone] [place]: St: REG FAX: Nora Mendez [phone] Name: CARINA LUCIO [facility] : 1945 Age/S: 73/M [address] [place] [address] Unit #: [id number] Loc: [place] [address] Phys: Yon Varela MD Acct: [id number] Dis Date: Status: REG ER PHONE #: [phone] Exam Date: 02/17/2019 1726 FAX #: [phone] Reason: PELVIC PAIN EXAMS: CPT CODE: [id number] XR PELVIS 1/2 VIEWS 88926 SINGLE RADIOGRAPHIC VIEW PELVIS INDICATION: Fall. Pelvis pain. TECHNIQUE: Single frontal radiographic view pelvis COMPARISONS: CT abdomen pelvis 05/30/2015 FINDINGS: There is a mild apex leftward lumbar scoliosis. There is no acute lumbar fracture detected. The pelvis and bilateral hips reveal no fracture or dislocation. 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 There are benign vas cular calcifications in the pelvis. IMPRESSION: 1. The pelvis and bilateral hips reveal no fracture or dislocation. 2. There is moderate symmetric bilateral primary osteoarthritic narrow ing of the hips. at 1722 Reported and signed by: Homar Suazo D.O. CC: Sa jennie Varela MD; Nora Mohr MD Technologist: Liz wallace, RT(R) Trnscrd Date/Time/By: 02/17/2019 (172 8) : By: [email or web address] Orig Print D/T: S: 02/17/2019 (9237) PAGE 1 Signed Report
--- NOTE | 2020-09-24 14:40 | NUR ---
called [facility] for transport home.
[2020-09-24 15:42] VITALS: BP 121/83
== END 2020-09-24 15:43 | disposition home or self-care (01) ==
LOC: ER 12:04
DX: M79.605 Pain in left leg (principal); M54.9 Dorsalgia, unspecified; G89.29 Other chronic pain
CPT/HCPCS: 93971; 99284; J1170; J2405; J7030